=== PATIENT | male | born 1940 | race African-American/Black ===

== ENCOUNTER 2016-05-06 14:49 | Emergency (ER) | payer OTHER, MEDICARE ==
--- NOTE | 2016-05-06 16:51 | ER Document Report ---
ED Medical Screen (RME) - General Chief Complaint: Back Pain Stated Complaint: BACK PAIN Mode of Arrival: Ambulatory Information source: Patient Notes: 76 y/o M presents to ED c/o lower back pain and left knee pain. Pt reports hx of gout and states has had similar symptoms in the past but states pain has been worse than usual over the last week. Denies trauma or fall, fever, chest pain, sob, or dysuria. TRAVEL OUTSIDE OF THE [place] IN LAST 30 DAYS: No - Related Data Allergies/Adverse Reactions: ACEINHIBITORS [TRIP Inhibitors] Allergy (Severe, Verified 05/06/16 15:03) Angioedema TRIP Inhibitors [Trip Inhibitors] Allergy (Verified 05/06/16 15:03) ezetimibe [From Zetia] Adverse Reaction (Verified 05/06/16 15:03) Past Medical History - Past Medical History Cardiac Medical History: Reports: Hx Coronary Artery Disease, Hx Hypercholesterolemia, Hx Hypertension - meds Denies: Hx Atrial Fibrillation, Hx Congestive Heart Failure, Hx Heart Attack , Hx Peripheral Vascular Disease, Hx Pulmonary Embolism, Hx Heart Murmur Pulmonary Medical History: Reports: Hx Pneumonia - 1944, Hx Sleep Apnea - cpap Denies: Hx Asthma, Hx Bronchitis, Hx COPD, Hx Respiratory Failure, Hx Tuberculosis Neurological Medical History: Denies: Hx Cerebrovascular Accident, Hx Seizures Endocrine Medical History: Denies: Hx Diabetes Mellitus Type 2, Hx Hypothyroidism Renal/ Medical History: Denies: Hx Benign Prostatic Hyperplasia, Hx End Stage Renal Disease, Hx Kidney Stones, Hx Peritoneal Dialysis Malignancy Medical History: Denies Hx Lung Cancer GI Medical History: Reports: Hx Gastroesophageal Reflux Disease, Hx Hiatal Hernia. Denies: Hx Crohn's Disease, Hx Hepatitis, Hx Irritable Bowel, Hx Liver Failure, Hx Ulcer Musculoskeltal Medical History: Reports Hx Arthritis - all over, Denies Hx Fibromyalgia, Reports Hx Gout, Denies Hx Multiple Sclerosis, Denies Hx Muscular Dystrophy Psychiatric Medical History: Denies: Hx Dementia Traumatic Medical History: Denies: Hx Fractures Infectious Medical History: Denies: Hx Hepatitis Past Surgical History: Reports: Hx Cardiac Catheterization, Hx Cholecystectomy, Hx Coronary Stent - [place]. Denies: Hx Appendectomy, Hx Bowel Surgery, Hx Colostomy, Hx Coronary Artery Bypass Graft, Hx Gastric Bypass Surgery, Hx Herniorrhaphy, Hx Open Heart Surgery, Hx Pacemaker, Hx Tonsillectomy - Immunizations Immunizations up to date: Yes Hx Diphtheria, Pertussis, Tetanus Vaccination: No Physical Exam - Vital signs Vitals: Temp Pulse Resp BP 97.8 F 52 L 20 191/76 H 05/06/16 14:59 05/06/16 14:59 05/06/16 14:59 05/06/16 14:59 Interpretation: Hypertensive - states has not taken his BP medication today - General General appearance: Appears well, Alert In distress: None - Respiratory Respiratory status: No respiratory distress - Cardiovascular Rhythm: Regular Pulses: Normal: Radial Normal capillary refill: Yes Course - Vital Signs Vital signs: Temp Pulse Resp BP Pulse Ox 97.8 F 52 L 20 191/76 H 05/06/16 14:59 05/06/16 14:59 05/06/16 14:59 05/06/16 14:59
[2016-05-06 17:47] LABS: ABSOLUTE BASOPHILS # (AUTO) 0.1 10^3/uL (0.0-0.2); ABSOLUTE EOSINOPHILS # (AUTO) 0.1 10^3/uL (0.0-0.6); ABSOLUTE LYMPHOCYTES (AUTO) 2.5 10^3/uL (0.5-4.7); ABSOLUTE MONOCYTES (AUTO) 0.5 10^3/uL (0.1-1.4); ABSOLUTE NEUT (AUTO) 2.8 10^3/uL (1.7-8.2); BASOPHILS % (AUTO) 0.9 % (0-2); EOSINOPHILS % (AUTO) 1.9 % (0-6); HEMATOCRIT 36.3 % (37.9-51.0); HEMOGLOBIN 11.6 g/dL (13.5-17.0); HGB HCT DIFFERENCE -1.5; LYMPHOCYTES % (AUTO) 42.3 % (13-45); MEAN CORPUSCULAR HEMOGLOBIN 30.9 pg (27.0-33.4); MEAN CORPUSCULAR HGB CONC 32.1 g/dL (32.0-36.0); MEAN CORPUSCULAR VOLUME 96 fl (80-97); MONOCYTES % (AUTO) 8.5 % (3-13); RED BLOOD COUNT 3.77 10^6/uL (4.35-5.55); RED CELL DISTRIBUTION WIDTH 17.5 % (11.5-14.0); SEGMENTED NEUTROPHILS % (AUTO) 46.4 % (42-78)
[2016-05-06 18:10] LABS: ALANINE AMINOTRANSFERASE 40 U/L (21-72); ALBUMIN 4.1 g/dL (3.5-5.0); ALKALINE PHOSPHATASE 115 U/L (38-126); ANION GAP 15 (5-19); ASPARTATE AMINO TRANSFERASE 32 U/L (17-59); BILIRUBIN,TOTAL 0.3 mg/dL (0.2-1.3); BLOOD UREA NITROGEN 23 mg/dL (7-20); CALCIUM 9.4 mg/dL (8.4-10.2); CARBON DIOXIDE 27 mmol/L (22-30); CHLORIDE 105 mmol/L (98-107); GLUCOSE 74 mg/dL (75-110); POTASSIUM 4.2 mmol/L (3.6-5.0); SODIUM 146.6 mmol/L (137-145); URIC ACID 3.5 mg/dL (3.5-8.5)
[2016-05-06 18:35] LABS: ERYTHROCYTE SEDIMENTATION RATE 37 mm/hr (0-20)
[2016-05-06 19:02] LABS: APPEARANCE,URINE CLEAR; BILIRUBIN,URINE NEGATIVE (NEGATIVE); GLUCOSE, URINE NEGATIVE (NEGATIVE); KETONES,URINE NEGATIVE (NEGATIVE); LEUKOCYTE ESTERASE,URINE NEGATIVE (NEGATIVE); NITRITE,URINE NEGATIVE (NEGATIVE); PROTEIN,URINE 100 mg/dL (NEGATIVE); URINE SPECIFIC GRAVITY 1.016; UROBILINOGEN,URINE NEGATIVE mg/dL (<2.0)
[2016-05-06] MEDS ORDERED: HYDROCODONE/ACETAMINOPHEN 5-325 MG 6 TAB/DSPK PO PRN (21:27)
--- NOTE | 2016-05-06 21:30 | ER Document Report ---
ED General - General Chief Complaint: Back Pain Stated Complaint: BACK PAIN Time seen by provider: 21:20 Mode of Arrival: Ambulatory Notes: Patient is 76-year-old male that comes emergency department for chief complaint of pain in his back and in his left thigh and knee, worse for a week, patient admits he has had this intermittently chronically, is actually been in physical therapy for this previously, they told him to get on pain management. Eyes any fall or recent injury, denies any fever or chills, he states he has gout and he wonders if he has a flare. He is on allopurinol. He denies nausea vomiting, fever or chills, chest pain, shortness of breath. Patient can ambulate but has some pain in doing so. TRAVEL OUTSIDE OF THE [place] IN LAST 30 DAYS: No - Related Data Allergies/Adverse Reactions: ACEINHIBITORS [TRIP Inhibitors] Allergy (Severe, Verified 05/06/16 15:03) Angioedema TRIP Inhibitors [Trip Inhibitors] Allergy (Verified 05/06/16 15:03) ezetimibe [From Zetia] Adverse Reaction (Verified 05/06/16 15:03) Past Medical History - General Information source: Patient - Social History Smoking Status: Never Smoker Frequency of alcohol use: None Drug Abuse: None Lives with: Family Family History: Reviewed & Not Pertinent Patient has suicidal ideation: No Patient has homicidal ideation: No - Past Medical History Cardiac Medical History: Reports: Hx Coronary Artery Disease, Hx Hypercholesterolemia, Hx Hypertension - meds Denies: Hx Atrial Fibrillation, Hx Congestive Heart Failure, Hx Heart Attack , Hx Peripheral Vascular Disease, Hx Pulmonary Embolism, Hx Heart Murmur Pulmonary Medical History: Reports: Hx Pneumonia - 1944, Hx Sleep Apnea - cpap Denies: Hx Asthma, Hx Bronchitis, Hx COPD, Hx Respiratory Failure, Hx Tuberculosis Neurological Medical History: Denies: Hx Cerebrovascular Accident, Hx Seizures Endocrine Medical History: Denies: Hx Diabetes Mellitus Type 2, Hx Hypothyroidism Renal/ Medical History: Denies: Hx Benign Prostatic Hyperplasia, Hx End Stage Renal Disease, Hx Kidney Stones, Hx Peritoneal Dialysis Malignancy Medical History: Denies Hx Lung Cancer GI Medical History: Reports: Hx Gastroesophageal Reflux Disease, Hx Hiatal Hernia. Denies: Hx Crohn's Disease, Hx Hepatitis, Hx Irritable Bowel, Hx Liver Failure, Hx Ulcer Musculoskeltal Medical History: Reports Hx Arthritis - all over, Denies Hx Fibromyalgia, Reports Hx Gout, Denies Hx Multiple Sclerosis, Denies Hx Muscular Dystrophy Psychiatric Medical History: Denies: Hx Dementia Traumatic Medical History: Denies: Hx Fractures Infectious Medical History: Denies: Hx Hepatitis Past Surgical History: Reports: Hx Cardiac Catheterization, Hx Cholecystectomy, Hx Coronary Stent - 2011, [place]. Denies: Hx Appendectomy, Hx Bowel Surgery, Hx Colostomy, Hx Coronary Artery Bypass Graft, Hx Gastric Bypass Surgery, Hx Herniorrhaphy, Hx Open Heart Surgery, Hx Pacemaker, Hx Tonsillectomy - Immunizations Immunizations up to date: Yes Hx Diphtheria, Pertussis, Tetanus Vaccination: No Review of Systems - Review of Systems Constitutional: No symptoms reported EENT: No symptoms reported Cardiovascular: No symptoms reported Respiratory: No symptoms reported Gastrointestinal: No symptoms reported Genitourinary: No symptoms reported Male Genitourinary: No symptoms reported Musculoskeletal: See HPI Skin: No symptoms reported Hematologic/Lymphatic: No symptoms reported Neurological/Psychological: No symptoms reported Physical Exam - Vital signs Vitals: Temp Pulse Resp BP 97.8 F 52 L 20 191/76 H 05/06/16 14:59 05/06/16 14:59 05/06/16 14:59 05/06/16 14:59 Interpretation: Normal - General General appearance: Appears well, Alert In distress: None - Patient very well appearing, when he ambulates he winces slightly occasionally - HEENT Head: Normocephalic, Atraumatic Eyes: Normal Pupils: PERRL - Respiratory Respiratory status: No respiratory distress Chest status: Nontender Breath sounds: Normal. No: Decreased air movement, Wheezing Chest palpation: Normal - Cardiovascular Rhythm: Regular. No: Tachycardia Heart sounds: Normal auscultation, S1 appreciated, S2 appreciated Murmur: No - Abdominal Inspection: Normal Distension: No distension Bowel sounds: Normal Tenderness: Nontender. No: Tender Organomegaly: No organomegaly - Back Back: Normal, Nontender - Extremities General upper extremity: Normal inspection, Nontender, Normal color, Normal ROM , Normal temperature General lower extremity: Other - No swelling, erythema, abnormal heat, or other abnormality noted to either lower extremity. There is tenderness over the left side generally and anteriorly, normal range of motion of the knee, hip, ankle, normal distal neurovascular exam - Neurological Neuro grossly intact: Yes Cognition: Normal Orientation: AAOx4 Joshua Coma Scale Eye Opening: Spontaneous Conor Coma Scale Verbal: Oriented Joshua Coma Scale Motor: Obeys Commands Conor Coma Scale Total: 15 Speech: Normal Motor strength normal: LUE, RUE, LLE, RLE Sensory: Normal - Psychological Associated symptoms: Normal affect, Normal mood - Skin Skin Temperature: Warm Skin Moisture: Dry Skin Color: Normal Course - Re-evaluation Re-evalutation: Patient is able to get up and ambulate without difficulty, examination of his knees do not indicate a gout flare, no evidence of septic arthritis with full range of motion of the joints, back exam is unremarkable, laboratory workup nonspecific and unremarkable, ESR is only very mildly elevated. Provided patient with copy of his imaging, I did provide him with pain medication, discussed follow-up with orthopedics for treatment of his knees/hip/lower back, discussed return precautions. Patient and [id number] state understanding and agreement. - Vital Signs Vital signs: Temp Pulse Resp BP Pulse Ox 97.7 F 50 L 16 164/61 H 98 05/06/16 21:37 05/06/16 21:37 05/06/16 21:37 05/06/16 21:37 05/06/16 21:37 - Laboratory Result Diagrams: 05/06/16 17:30 05/06/16 17:30 Laboratory results interpreted by me: 05/06/16 05/06/16 05/06/16 17:15 17:30 17:30 RBC 3.77 L Hgb 11.6 L Hct 36.3 L RDW 17.5 H ESR 37 H Sodium 146.6 H BUN 23 H Glucose 74 L Urine Protein 100 H Urine Ascorbic Acid 20 H Discharge - Discharge Clinical Impression: Back pain Qualifiers: Back pain location: low back pain Chronicity: chronic Back pain laterality: unspecified Sciatica presence: without sciatica Qualified Code(s): M54.5 - Low back pain Leg pain Qualifiers: Laterality: left Qualified Code(s): M79.605 - Pain in left leg Condition: Stable Disposition: HOME, SELF-CARE Additional Instructions: There is degenerative disc disease in your back, some fluid in your knee joint, although the problem appears to be your thigh/hip. Examination and workup does not indicate infection or gout flare. Take the pain medication if needed as directed. Follow up with your primary this week - you may need both orthopedic and spinal specialty referrals for additional care and management. Return to the ED for any concerning symptoms - fever, vomiting, swelling, redness of the leg, or any other concerning symptoms. Prescriptions: Hydrocodone/Acetaminophen [[place] 5-325 mg Tablet] 1 - 2 tab PO ASDIR #15 tablet Referrals: MARC LANZA MD [Primary Care Provider] - Follow up as needed
[2016-05-06 21:42] VITALS: BP 164/61
== END 2016-05-06 21:43 | disposition home or self-care (01) ==
LOC: ER 14:49
DX: M54.5 Low back pain (principal); M79.605 Pain in left leg; M54.9 Dorsalgia, unspecified; M79.652 Pain in left thigh; M25.562 Pain in left knee; Z79.899 Other long term (current) drug therapy; I25.10 Atherosclerotic heart disease of native coronary artery without angina pectoris; E78.00 Pure hypercholesterolemia, unspecified; I10 Essential (primary) hypertension
CPT/HCPCS: 36415; 72110; 80053; 81001; 84550; 85025; 85652; 99283

== ENCOUNTER → 2016-06-06 | Outpatient (CLI) | payer MEDICARE, OTHER | LOC: RAD 09:53 | PROVIDERS: ATTEND Specialist | DX: R19.01 Right upper quadrant abdominal swelling, mass and lump (principal) | CPT/HCPCS: 76700 ==

== ENCOUNTER 2016-11-01 17:19 | Inpatient (IN) | payer MEDICARE, OTHER ==
[2016-11-01] MEDS ORDERED: ASPIRIN 81 MG TABLET, CHEWABLE PO ONE (18:03)
--- NOTE | 2016-11-01 18:55 | RADIOLOGY REPORT (SQ) ---
EXAM DESCRIPTION: CHEST SINGLE VIEW COMPLETED DATE/TIME: 11/01/2016 6:38 pm REASON FOR STUDY: chest pain COMPARISON: 06/28/2015 NUMBER OF VIEWS: One view. TECHNIQUE: Single frontal radiographic view of the chest acquired. LIMITATIONS: None. FINDINGS: LUNGS AND PLEURA: Low lung volumes. No opacities, masses or pneumothorax. No pleural eff usion. MEDIASTINUM AND HILAR STRUCTURES: No masses. No contour abnormality. HEART AND VASCULAR STRUCTURES: Normal size. No evidence for failure. BONES: No acute findings. HARDWARE: None in the chest. OTHER: No other significant finding. IMPRESSION: LOW LUNG VOLUMES. NO SIGNIFICANT RADIOGRAPHIC FINDING IN THE CHEST. TECHNICAL DOCUMENTATION: JOB ID: [id number] [employer]- All Rights Reserved
--- NOTE | 2016-11-01 19:05 | ER Document Report ---
ED Medical Screen (RME) - General Mode of Arrival: Ambulatory Information source: Patient TRAVEL OUTSIDE OF THE [place] IN LAST 30 DAYS: No - HPI Patient complains to provider of: Fever Onset: Other - last night Associated Symptoms: Other - see notes above - Related Data Smoking: Non-smoker Frequency of alcohol use: None Drug Abuse: None <TAMMI CHE - Last Filed: 11/01/16 19:00> <RAUDEL TAYLOR - Last Filed: 11/01/16 20:48> - General Chief Complaint: Chest Pain Stated Complaint: CHEST PAIN Time Seen by Provider: 11/01/16 17:57 Notes: 76 year old male with history of CAD, coronary stent, and UTIs presents to the ED complaining of a fever that started last night (104.6F). Patient states he took Tylenol last night and again this morning which has helped control the fever, but is additionally complaining of suprapubic abdominal pain and chest ' tingling', with the abdominal pain being worse. Patient also reports right flank pain, urinary urgency, frequency, and mild dysuria. Patient denies vomiting or diarrhea. reports that when the patient develops a fever this bad he usually has a UTI. Patient also reports that his eyes feel like they are cameras such that he is experiencing 'light blinking.' (TAMMI CHE) - Related Data Allergies/Adverse Reactions: ACEINHIBITORS [TRIP Inhibitors] Allergy (Severe, Verified 05/06/16 15:03) Angioedema TRIP Inhibitors [Trip Inhibitors] Allergy (Verified 05/06/16 15:03) ezetimibe [From Zetia] Adverse Reaction (Verified 05/06/16 15:03) Past Medical History - General Information source: Patient - Past Medical History Cardiac Medical History: Reports: Hx Coronary Artery Disease, Hx Hypercholesterolemia, Hx Hypertension - meds 1980s Pulmonary Medical History: Reports: Hx Pneumonia - 1944, Hx Sleep Apnea - cpap GI Medical History: Reports: Hx Gastroesophageal Reflux Disease, Hx Hiatal Hernia Musculoskeltal Medical History: Reports Hx Arthritis - all over, Reports Hx Gout Past Surgical History: Reports: Hx Cardiac Catheterization, Hx Cholecystectomy, Hx Coronary Stent - [place] - Immunizations Immunizations up to date: Yes Hx Diphtheria, Pertussis, Tetanus Vaccination: No <TAMMI CHE - Last Filed: 11/01/16 19:00> Review of Systems - Review of Systems Constitutional: See HPI, Fever - 104.6F EENT: No symptoms reported Cardiovascular: See HPI, Chest pain - 'tingling' Respiratory: No symptoms reported Gastrointestinal: See HPI, Abdominal pain - suprapubic. denies: Diarrhea, Vomiting Genitourinary: See HPI, Dysuria, Frequency, Flank pain - right, Urgency Male Genitourinary: No symptoms reported Musculoskeletal: No symptoms reported Skin: No symptoms reported Hematologic/Lymphatic: No symptoms reported Neurological/Psychological: No symptoms reported -: Yes All other systems reviewed and negative <TAMMI CHE - Last Filed: 11/01/16 19:00> Physical Exam - Respiratory Respiratory status: No respiratory distress Breath sounds: Normal - Cardiovascular Rhythm: Regular Heart sounds: Normal auscultation Murmur: No Friction rub: No Gallop: None auscultated - Abdominal Inspection: Normal Distension: No distension Bowel sounds: Normal Tenderness: Tender - mild diffuse tenderness to palpation <TAMMI CHE - Last Filed: 11/01/16 19:00> Course - Laboratory Result Diagrams: 11/01/16 18:25 11/01/16 18:25 <TAMMI CHE - Last Filed: 11/01/16 19:00> - Laboratory Result Diagrams: 11/01/16 18:25 11/01/16 18:25 <RAUDEL TAYLOR - Last Filed: 11/01/16 20:48> - Vital Signs Vital signs: Temp Pulse Resp BP Pulse Ox 98.8 F 73 21 H 149/64 H 97 11/01/16 17:37 11/01/16 17:37 11/01/16 20:00 11/01/16 19:01 11/01/16 20:00 - Laboratory Laboratory results interpreted by me: 11/01/16 11/01/16 11/01/16 18:25 18:25 18:25 WBC 15.2 H RBC 4.19 L Hgb 12.7 L RDW 17.1 H Seg Neutrophils % 78.8 H Lymphocytes % 10.1 L Absolute Neutrophils 12.0 H Absolute Monocytes 1.7 H BUN 27 H Creatinine 1.57 H Est GFR ( Amer) 52 L Est GFR (Non-Af Amer) 43 L Direct Bilirubin 0.5 H Urine Protein 100 H Urine Urobilinogen 2.0 H Ur Leukocyte Esterase MODERATE H Urine Ascorbic Acid 40 H Doctor's Discharge <TAMMI CHE - Last Filed: 11/01/16 19:00> <RAUDEL TAYLOR - Last Filed: 11/01/16 20:48> - Discharge Clinical Impression: Sepsis, Pyelonephritis, Acute kidney injury Condition: Fair Disposition: ADMITTED INPATIENT Referrals: MARC LANZA MD [Primary Care Provider] - Follow up as needed Scribe Documentation - Scribe Written by Scribe:: Alphonso Felix, 11/01/2016 1915 acting as scribe for :: Chuck <TAMMI CHE - Last Filed: 11/01/16 19:00>
[2016-11-01 19:07] LABS: APPEARANCE,URINE CLOUDY; BILIRUBIN,URINE NEGATIVE (NEGATIVE); GLUCOSE, URINE NEGATIVE (NEGATIVE); KETONES,URINE NEGATIVE (NEGATIVE); LEUKOCYTE ESTERASE,URINE MODERATE (NEGATIVE); NITRITE,URINE NEGATIVE (NEGATIVE); PROTEIN,URINE 100 mg/dL (NEGATIVE); URINE SPECIFIC GRAVITY 1.021
[2016-11-01 19:11] LABS: ABSOLUTE LYMPHOCYTES (AUTO) 1.5 10^3/uL (0.5-4.7); ABSOLUTE MONOCYTES (AUTO) 1.7 10^3/uL (0.1-1.4); BASOPHILS % (AUTO) 0.2 % (0-2); HEMATOCRIT 39.5 % (37.9-51.0); HEMOGLOBIN 12.7 g/dL (13.5-17.0); HGB HCT DIFFERENCE -1.4; LYMPHOCYTES % (AUTO) 10.1 % (13-45); MEAN CORPUSCULAR HEMOGLOBIN 30.5 pg (27.0-33.4); MEAN CORPUSCULAR HGB CONC 32.2 g/dL (32.0-36.0); MEAN CORPUSCULAR VOLUME 95 fl (80-97); MONOCYTES % (AUTO) 10.9 % (3-13); RED BLOOD COUNT 4.19 10^6/uL (4.35-5.55); RED CELL DISTRIBUTION WIDTH 17.1 % (11.5-14.0); SEGMENTED NEUTROPHILS % (AUTO) 78.8 % (42-78); WHITE BLOOD COUNT 15.2 10^3/uL (4.0-10.5)
[2016-11-01 19:16] LABS: ALANINE AMINOTRANSFERASE 36 U/L (21-72); ALBUMIN 4.4 g/dL (3.5-5.0); ALKALINE PHOSPHATASE 115 U/L (38-126); ANION GAP 14 (5-19); ASPARTATE AMINO TRANSFERASE 41 U/L (17-59); BILIRUBIN,DIRECT 0.5 mg/dL (0.0-0.4); BILIRUBIN,TOTAL 1.2 mg/dL (0.2-1.3); BLOOD UREA NITROGEN 27 mg/dL (7-20); CALCIUM 9.3 mg/dL (8.4-10.2); CARBON DIOXIDE 25 mmol/L (22-30); CHLORIDE 101 mmol/L (98-107); CREATINE KINASE 128 U/L (55-170); CREATININE RESULT 1.57 mg/dL (0.52-1.25); GLUCOSE 108 mg/dL (75-110); POTASSIUM 4.2 mmol/L (3.6-5.0); SODIUM 139.9 mmol/L (137-145); TOTAL PROTEIN 8.1 g/dL (6.3-8.2)
[2016-11-01] MEDS ORDERED: LEVOFLOXACIN 750 MG/D5W RTU 150 ML IV ONE (19:27)
[2016-11-01 19:28] LABS: CREATINE KINASE MB 0.64 ng/mL (<4.55); TROPONIN I 0.024 ng/mL
[2016-11-01] MEDS ORDERED: NORMAL SALINE 1000 ML 1,000 ML IV ONE (19:28)
--- NOTE | 2016-11-01 19:32 | ER Document Report ---
ED General - General Chief Complaint: Fever Stated Complaint: fever Time Seen by Provider: 11/01/16 17:57 Mode of Arrival: Ambulatory Notes: Patient is a 76-year-old male who presents with weakness, difficulty with ambulation, and fever up to 102.4F today. Patient has had similar symptoms in the past that he has become septic. Nothing improves or worsens his symptoms. He has been taking Tylenol at home to treat his fever. He has not seen his primary care doctor regarding today's concerns. He does admit to dysuria and bilateral low back pain. The pain is described as a dull, aching, throbbing pain. He denies any headache, neck pain, cough or shortness of breath. TRAVEL OUTSIDE OF THE [place] IN LAST 30 DAYS: No - Related Data Allergies/Adverse Reactions: ACEINHIBITORS [TRIP Inhibitors] Allergy (Severe, Verified 05/06/16 15:03) Angioedema TRIP Inhibitors [Trip Inhibitors] Allergy (Verified 05/06/16 15:03) ezetimibe [From Zetia] Adverse Reaction (Verified 05/06/16 15:03) Home Medications: Current Home Medications Allopurinol [Zyloprim 300 mg Tablet] 300 mg PO QPM 11/01/16 [History] Aspirin [Aspirin 81 mg Chewable Tablet] 81 mg PO DAILY 11/01/16 [History] Atorvastatin Calcium [Lipitor 40 mg Tablet] 40 mg PO QHS 11/01/16 [History] Clopidogrel Bisulfate [Plavix 75 mg Tablet] 75 mg PO QHS 11/01/16 [History] Ferrous Sulfate [Feosol 325 mg Tablet] 325 mg PO BID 11/01/16 [History] Gabapentin [Neurontin] 600 mg PO BID 11/01/16 [History] Magnesium Oxide [Mag-Ox 400 mg Tablet] 400 mg PO BID 11/01/16 [History] Metoprolol Tartrate [Lopressor 100 mg Tablet] 100 mg PO BID 11/01/16 [History] Nitroglycerin [Nitrostat] 0.4 mg SL Q5M 11/01/16 [History] Pantoprazole Sodium [Protonix] 40 mg PO QAM 11/01/16 [History] Past Medical History - General Information source: Patient - Social History Smoking Status: Never Smoker Frequency of alcohol use: None Drug Abuse: None Lives with: Spouse/Significant other Family History: Reviewed & Not Pertinent Patient has suicidal ideation: No Patient has homicidal ideation: No - Past Medical History Cardiac Medical History: Reports: Hx Coronary Artery Disease, Hx Hypercholesterolemia, Hx Hypertension - meds Denies: Hx Atrial Fibrillation, Hx Congestive Heart Failure, Hx Heart Attack Pulmonary Medical History: Reports: Hx Pneumonia - 1944, Hx Sleep Apnea - cpap Denies: Hx Asthma, Hx Bronchitis, Hx COPD, Hx Tuberculosis Neurological Medical History: Denies: Hx Seizures Endocrine Medical History: Denies: Hx Diabetes Mellitus Type 2 Renal/ Medical History: Denies: Hx End Stage Renal Disease, Hx Kidney Stones, Hx Peritoneal Dialysis GI Medical History: Reports: Hx Gastroesophageal Reflux Disease, Hx Hiatal Hernia. Denies: Hx Ulcer Musculoskeltal Medical History: Reports Hx Arthritis - all over, Reports Hx Gout Past Surgical History: Reports: Hx Cardiac Catheterization, Hx Cholecystectomy, Hx Coronary Stent - 2011, [place]. Denies: Hx Appendectomy, Hx Bowel Surgery, Hx Open Heart Surgery, Hx Tonsillectomy - Immunizations Immunizations up to date: Yes Hx Diphtheria, Pertussis, Tetanus Vaccination: No Review of Systems - Review of Systems Notes: Constitutional: Positive for fever. HENT: Negative for sore throat. Eyes: Negative for visual changes. Cardiovascular: Negative for chest pain. Respiratory: Negative for shortness of breath. Gastrointestinal: Negative for abdominal pain, vomiting or diarrhea. Genitourinary: Positive for dysuria. Musculoskeletal: Negative for back pain. Skin: Negative for rash. Neurological: Negative for headaches, weakness or numbness. 10 point ROS negative except as marked above and in HPI. Physical Exam - Vital signs Vitals: Temp Pulse Resp BP Pulse Ox 98.8 F 73 15 146/52 H 100 11/01/16 17:37 11/01/16 17:37 11/01/16 17:37 11/01/16 17:37 11/01/16 17:37 Interpretation: Hypertensive Notes: PHYSICAL EXAMINATION: GENERAL: Appears somewhat ill but in no acute distress. HEAD: Atraumatic, normocephalic. EYES: Pupils equal round and reactive to light, extraocular movements intact, sclera anicteric, conjunctiva are normal. ENT: nares patent, oropharynx clear without exudates. Dry mucous membranes. NECK: Normal range of motion, supple without lymphadenopathy LUNGS: Breath sounds clear to auscultation bilaterally and equal. No wheezes rales or rhonchi. HEART: Regular rate and rhythm without murmurs ABDOMEN: Soft, nontender, normoactive bowel sounds. No guarding, no rebound. No masses appreciated. Bilateral CVA tenderness worse on the left EXTREMITIES: Normal range of motion, no pitting or edema. No cyanosis. NEUROLOGICAL: No focal neurological deficits. Moves all extremities spontaneously and on command. PSYCH: Normal mood, normal affect. SKIN: Warm, Dry, normal turgor, no rashes or lesions noted. Course - Re-evaluation Re-evalutation: 11/01/16 19:29 Patient presents with sepsis secondary to pyelonephritis. Patient has bilateral CVA tenderness on examination, with febrile at home to 101.4 earlier today, and has a leukocytosis with a neutrophilic predominance. His laboratories do demonstrate an acute kidney injury with creatinine at 1.57 consistent with a prerenal azotemia. Patient does not have a baseline chronic kidney disease. Patient overall is somewhat ill in appearance, lethargic, but answers questions appropriately. His at the bedside relates that the patient has been unable to get up out of bed on his own, does not unable to walk to the car today on his own to come to the hospital. He is normally independent in all activities of daily living. Given his functional decline, acute kidney injury and that he meet sepsis criteria, I will request an admission from his primary care doctor Dr. Hoffman. Patient has been started on IV fluids and IV levofloxacin. 11/01/16 20:39 Have discussed this case with Dr. Hoffman who is agreed to admit the patient. The care plan has been discussed with the patient and his family at the bedside who are agreeable to admission at this time. - Vital Signs Vital signs: Temp Pulse Resp BP Pulse Ox 99.6 F 98 20 155/57 H 100 11/01/16 23:09 11/02/16 01:59 11/01/16 23:09 11/01/16 23:09 11/01/16 23:09 - Laboratory Result Diagrams: 11/01/16 18:25 11/01/16 18:25 Laboratory results interpreted by me: 11/01/16 11/01/16 11/01/16 18:25 18:25 18:25 WBC 15.2 H RBC 4.19 L Hgb 12.7 L RDW 17.1 H Seg Neutrophils % 78.8 H Lymphocytes % 10.1 L Absolute Neutrophils 12.0 H Absolute Monocytes 1.7 H BUN 27 H Creatinine 1.57 H Est GFR ( Amer) 52 L Est GFR (Non-Af Amer) 43 L Direct Bilirubin 0.5 H Urine Protein 100 H Urine Urobilinogen 2.0 H Ur Leukocyte Esterase MODERATE H Urine Ascorbic Acid 40 H - Diagnostic Test Radiology reviewed: Image reviewed, Reports reviewed Radiology results interpreted by me: 11/01/16 20:39 Chest x-ray: No acute infiltrate or pneumothorax Discharge - Discharge Clinical Impression: Pyelonephritis, Acute kidney injury Sepsis Qualifiers: Sepsis type: sepsis due to unspecified organism Qualified Code(s): A41.9 - Sepsis, unspecified organism Condition: Fair Disposition: ADMITTED INPATIENT Admitting Provider: Hoffman Unit Admitted: Telemetry
--- NOTE | 2016-11-01 20:42 | EKG REPORT ---
SEVERITY:- NORMAL ECG - SINUS RHYTHM : Confirmed by: Opal Wren 01-Nov-2016 20:41:57
[2016-11-02] MEDS ORDERED: NITROGLYCERIN 0.4 MG/TAB 25 TAB/BOTTLE SL PRN (05:15)
[2016-11-02] MEDS: LANSOPRAZOLE 30 MG TAB.RAP.DR PO SCH (06:17)
[2016-11-02] MEDS: ACETAMINOPHEN 325 MG TABLET PO PRN ×2 (06:17→21:30)
[2016-11-02] MEDS: POTASSI CL 20 MEQ/1/2NS 1L 1,000 ML IV PRN ×2 (06:17→21:32)
--- NOTE | 2016-11-02 07:27 | PDOC H&P ---
History of Present Illness Admission Date/PCP: 11/01/16 23:25 MARC LANZA MD Patient complains of: fever History of Present Illness: ZAIRA GOOD is a 76 year old male with 2d days of fever, frequency, urgency, flank pain. Since 2013 he had 3 admissions for uti. In 2011 hematuria emery he had multiple renal cysts. 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 Had veeg by [facility] Endocrine Medical History: Denies: Diabetes Mellitus Type 2 Renal/ Medical History: Denies: Chronic Kidney Disease, End Stage Renal Disease Malignancy Medical History: Reports: None GI Medical History: Reports: Gastroesophageal Reflux Disease, Hiatal Hernia Musculoskeltal Medical History: Reports: Arthritis - all over, Gout Skin Medical History: Reports: None Psychiatric Medical History: Denies: Depression Traumatic Medical History: Reports: None Hematology: Denies: Anemia, Sickle Cell Disease Infectious Medical History: Reports: None Past Surgical History Past Surgical History: Reports: Cardiac Catheterization, Cholecystectomy, Coronary Stent - 2011, [facility] Denies: Appendectomy, Tonsillectomy Social History Information Source: Office Lives with: Spouse/Significant other Smoking Status: Never Smoker Last Time Smoked: quit around 1975 Frequency of Alcohol Use: None Hx Recreational Drug Use: No Drugs: None Hx Prescription Drug Abuse: No - Advance Directive Resuscitation Status: Full Code Family History Family History: CVA, Hypertension Parental Family History Reviewed: Yes Children Family History Reviewed: Yes Sibling(s) Family History Reviewed.: Yes Medication/Allergy Home Medications: Allopurinol [Zyloprim 300 mg Tablet] 300 mg PO QPM 11/01/16 Aspirin [Aspirin 81 mg Chewable Tablet] 81 mg PO DAILY 11/01/16 Atorvastatin Calcium [Lipitor 40 mg Tablet] 40 mg PO QHS 11/01/16 Clopidogrel Bisulfate [Plavix 75 mg Tablet] 75 mg PO QHS 11/01/16 Ferrous Sulfate [Feosol 325 mg Tablet] 325 mg PO BID 11/01/16 Gabapentin [Neurontin] 600 mg PO BID 11/01/16 Magnesium Oxide [Mag-Ox 400 mg Tablet] 400 mg PO BID 11/01/16 Metoprolol Tartrate [Lopressor 100 mg Tablet] 100 mg PO BID 11/01/16 Nitroglycerin [Nitrostat] 0.4 mg SL Q5M 11/01/16 Pantoprazole Sodium [Protonix] 40 mg PO QAM 11/01/16 Allergies/Adverse Reactions: ACEINHIBITORS [TRIP Inhibitors] Allergy (Severe, Verified 05/06/16 15:03) Angioedema TRIP Inhibitors [Trip Inhibitors] Allergy (Verified 05/06/16 15:03) ezetimibe [From Zetia] Adverse Reaction (Verified 05/06/16 15:03) Review of Systems Constitutional: PRESENT: fever(s), weakness Cardiovascular: PRESENT: dyspnea on exertion. ABSENT: chest pain, orthropnea Respiratory: ABSENT: cough Gastrointestinal: PRESENT: heartburn. ABSENT: abdominal pain, constipation, diarrhea, hematochezia, vomiting Genitourinary: PRESENT: as per HPI Musculoskeletal: PRESENT: back pain Neurological: PRESENT: weakness - needed help to get out of car Physical Exam Vital Signs: Temp Pulse Resp BP Pulse Ox 101.9 F H 99 20 133/49 H 100 11/02/16 04:00 11/02/16 04:00 11/02/16 04:00 11/02/16 04:00 11/02/16 04:00 Intake & Output 10/31/16 11/01/16 11/02/16 07:59 07:59 07:59 Weight 234 lb 9.149 oz General appearance: PRESENT: no acute distress Mouth exam: PRESENT: moist Throat exam: ABSENT: post pharyngeal erythema Neck exam: ABSENT: lymphadenopathy, tenderness, thyromegaly, tracheal deviation Respiratory exam: PRESENT: clear to auscultation beverley Cardiovascular exam: ABSENT: diastolic murmur, irregular rhythm, systolic murmur GI/Abdominal exam: PRESENT: tenderness - suprapubic. Flanks nontender.. ABSENT : mass, organolmegaly Extremities exam: ABSENT: pedal edema Neurological exam: PRESENT: oriented to situation Psychiatric exam: PRESENT: appropriate affect Results Laboratory Results: Abnormal - 24 hr 11/01/16 11/01/16 11/01/16 18:25 18:25 18:25 WBC 15.2 H RBC 4.19 L Hgb 12.7 L RDW 17.1 H Seg Neutrophils % 78.8 H Lymphocytes % 10.1 L Absolute Neutrophils 12.0 H Absolute Monocytes 1.7 H BUN 27 H Creatinine 1.57 H Est GFR ( Amer) 52 L Est GFR (Non-Af Amer) 43 L Direct Bilirubin 0.5 H Urine Protein 100 H Urine Urobilinogen 2.0 H Ur Leukocyte Esterase MODERATE H Urine Ascorbic Acid 40 H Impressions: Chest X-Ray 11/01/16 18:04 IMPRESSION: LOW LUNG VOLUMES. NO SIGNIFICANT RADIOGRAPHIC FINDING IN THE CHEST. Assessment & Plan - Diagnosis (1) Pyelonephritis Is this a current diagnosis for this admission?: YesPlan: levaquin ivf (2) Acute kidney injury Is this a current diagnosis for this admission?: YesPlan: ivf (3) Sepsis Qualifiers: Sepsis type: sepsis due to unspecified organism Qualified Code(s): A41.9 - Sepsis, unspecified organism Is this a current diagnosis for this admission?: YesPlan: tachypnea fever leukocytosis weakness. Suspect gram negative from uti. Levaquin & ivf - Inpatient Certification Based on my medical assessment, after consideration of the patient's comorbidities, presenting symptoms, or acuity I expect that the services needed warrant INPATIENT care.: Yes I certify that my determination is in accordance with my understanding of Medicare's requirements for reasonable and necessary INPATIENT services [42 CFR 412.3e].: Yes Medical Necessity: Need Close Monitoring Due to Risk of Patient Decompensation, Need For IV Fluids, Need for IV Antibiotics, Risk of Complication if Not Cared For in Hospital, Risk of Diagnosis Which Will Require Inpatient Eval/Care/ Monitoring
[2016-11-02] MEDS: ASPIRIN 81 MG TABLET, CHEWABLE PO SCH (10:01)
[2016-11-02] MEDS: GABAPENTIN 300 MG CAPSULE PO SCH ×2 (10:02→21:30)
[2016-11-02] MEDS: MAGNESIUM OXIDE 400 MG TABLET PO SCH ×2 (10:02→17:34)
[2016-11-02] MEDS: FERROUS SULFATE 325 MG TABLET PO SCH ×2 (10:02→17:34)
[2016-11-02] MEDS: ENOXAPARIN SODIUM INJ 40 MG/0.4 ML DISP.SYRIN SUBCUT SCH (10:02)
[2016-11-02] MEDS ORDERED: NORMAL SALINE 1000 ML 1,000 ML IV ONE (10:30)
[2016-11-02] MEDS: METOPROLOL TARTRATE 100 MG TABLET PO SCH ×2 (10:46→17:34)
[2016-11-02] MEDS: ALLOPURINOL 300 MG TABLET PO SCH (17:33)
[2016-11-02] MEDS: LEVOFLOXACIN 500 MG/D5W RTU 500 MG/100 ML RTUPB IV SCH (17:34)
[2016-11-02] MEDS: ATORVASTATIN CALCIUM 40 MG TABLET PO SCH (21:30)
[2016-11-02] MEDS: CLOPIDOGREL BISULFATE 75 MG TABLET PO SCH (21:30)
[2016-11-03] MEDS: LANSOPRAZOLE 30 MG TAB.RAP.DR PO SCH (06:13)
[2016-11-03] MEDS: POTASSI CL 20 MEQ/1/2NS 1L 1,000 ML IV PRN (06:13)
--- NOTE | 2016-11-03 07:41 | PDOC PROGRESS REPORT ---
Subjective Progress Note for:: 11/03/16 Subjective:: clammy yesterday after metoprolol until bolus 2L Physical Exam Vital Signs: Temp Pulse Resp BP Pulse Ox 99 F 64 17 135/62 H 99 11/03/16 03:57 11/03/16 03:57 11/03/16 03:57 11/03/16 03:57 11/03/16 03:57 Intake & Output 11/01/16 11/02/16 11/03/16 07:59 07:59 07:59 Intake Total 3843 Output Total 200 1680 Balance -200 2163 Weight 240 lb 8.389 oz General appearance: PRESENT: no acute distress Respiratory exam: PRESENT: clear to auscultation beverley Cardiovascular exam: ABSENT: diastolic murmur, irregular rhythm, systolic murmur GI/Abdominal exam: ABSENT: mass, organolmegaly, tenderness Extremities exam: ABSENT: pedal edema Neurological exam: PRESENT: oriented to situation Psychiatric exam: PRESENT: appropriate affect Results Impressions: Chest X-Ray 11/01/16 18:04 IMPRESSION: LOW LUNG VOLUMES. NO SIGNIFICANT RADIOGRAPHIC FINDING IN THE CHEST. Assessment & Plan - Diagnosis (1) Pyelonephritis Is this a current diagnosis for this admission?: YesPlan: 100k gram negative. Continue levaquin. Was septic with hypotension, fever, weakness, leukocytosis. (2) Acute kidney injury Is this a current diagnosis for this admission?: Yes (3) Sepsis Qualifiers: Sepsis type: sepsis due to unspecified organism Qualified Code(s): A41.9 - Sepsis, unspecified organism Is this a current diagnosis for this admission?: YesPlan: continue levaquin. Follow sensitivities. (4) Essential (primary) hypertension Is this a current diagnosis for this admission?: YesPlan: decrease metoprolol
[2016-11-03] MEDS: FERROUS SULFATE 325 MG TABLET PO SCH ×2 (11:19→17:22)
[2016-11-03] MEDS: MAGNESIUM OXIDE 400 MG TABLET PO SCH ×2 (11:19→17:22)
[2016-11-03] MEDS: ASPIRIN 81 MG TABLET, CHEWABLE PO SCH (11:19)
[2016-11-03] MEDS: METOPROLOL TARTRATE 50 MG TABLET PO SCH ×2 (11:20→21:24)
[2016-11-03] MEDS: ENOXAPARIN SODIUM INJ 40 MG/0.4 ML DISP.SYRIN SUBCUT SCH (11:20)
[2016-11-03] MEDS: GABAPENTIN 300 MG CAPSULE PO SCH ×2 (11:20→21:24)
[2016-11-03] MEDS: ACETAMINOPHEN 325 MG TABLET PO PRN ×2 (15:57→21:24)
[2016-11-03] MEDS ORDERED: TRAMADOL HCL 50 MG TABLET PO PRN (17:15)
[2016-11-03] MEDS: ALLOPURINOL 300 MG TABLET PO SCH (17:18)
[2016-11-03] MEDS: LEVOFLOXACIN 500 MG/D5W RTU 500 MG/100 ML RTUPB IV SCH (17:22)
[2016-11-03] MEDS: 1/2 NORMAL SALINE 1,000 ML IV PRN (20:08)
[2016-11-03] MEDS: CLOPIDOGREL BISULFATE 75 MG TABLET PO SCH (21:24)
[2016-11-03] MEDS: ATORVASTATIN CALCIUM 40 MG TABLET PO SCH (21:24)
[2016-11-04 05:22] LABS: ANION GAP 11 (5-19); BLOOD UREA NITROGEN 20 mg/dL (7-20); CALCIUM 8.4 mg/dL (8.4-10.2); CARBON DIOXIDE 20 mmol/L (22-30); CHLORIDE 108 mmol/L (98-107); CREATININE RESULT 1.18 mg/dL (0.52-1.25); GLUCOSE 87 mg/dL (75-110); POTASSIUM 4.2 mmol/L (3.6-5.0); SODIUM 138.5 mmol/L (137-145)
[2016-11-04] MEDS: 1/2 NORMAL SALINE 1,000 ML IV PRN ×2 (05:48→16:51)
[2016-11-04] MEDS: LANSOPRAZOLE 30 MG TAB.RAP.DR PO SCH (05:48)
[2016-11-04] MEDS: METOPROLOL TARTRATE 50 MG TABLET PO SCH ×2 (10:20→21:46)
[2016-11-04] MEDS: ASPIRIN 81 MG TABLET, CHEWABLE PO SCH (10:21)
[2016-11-04] MEDS: MAGNESIUM OXIDE 400 MG TABLET PO SCH ×2 (10:21→18:18)
[2016-11-04] MEDS: ENOXAPARIN SODIUM INJ 40 MG/0.4 ML DISP.SYRIN SUBCUT SCH (10:21)
[2016-11-04] MEDS: FERROUS SULFATE 325 MG TABLET PO SCH ×2 (10:21→18:18)
[2016-11-04] MEDS: GABAPENTIN 300 MG CAPSULE PO SCH ×2 (10:21→21:44)
[2016-11-04] MEDS: ALLOPURINOL 300 MG TABLET PO SCH (18:18)
[2016-11-04] MEDS: ERTAPENEM SODIUM 1 GM in NORMAL SALINE 50 ML IV SCH (18:18)
[2016-11-04] MEDS: CLOPIDOGREL BISULFATE 75 MG TABLET PO SCH (21:46)
[2016-11-04] MEDS: ATORVASTATIN CALCIUM 40 MG TABLET PO SCH (21:46)
[2016-11-05] MEDS: ACETAMINOPHEN 325 MG TABLET PO PRN (00:48)
[2016-11-05] MEDS: LANSOPRAZOLE 30 MG TAB.RAP.DR PO SCH (05:52)
--- NOTE | 2016-11-05 07:17 | PDOC PROGRESS REPORT ---
Subjective Progress Note for:: 11/04/16 Subjective:: still fever Physical Exam Vital Signs: Temp Pulse Resp BP Pulse Ox 100 F 65 17 168/48 H 100 11/05/16 04:00 11/05/16 04:00 11/05/16 04:00 11/05/16 04:00 11/05/16 04:00 Intake & Output 11/03/16 11/04/16 11/05/16 07:59 07:59 07:59 Intake Total 3843 2980 2365 Output Total 1680 1600 1750 Balance 2163 1380 615 Weight 240 lb 8.389 oz 240 lb 4.862 oz 266 lb 1.567 oz General appearance: PRESENT: no acute distress Respiratory exam: PRESENT: clear to auscultation beverley Cardiovascular exam: ABSENT: diastolic murmur, irregular rhythm, systolic murmur GI/Abdominal exam: ABSENT: mass, organolmegaly, tenderness Extremities exam: ABSENT: pedal edema Neurological exam: PRESENT: oriented to situation Psychiatric exam: PRESENT: appropriate affect Results Laboratory Results: 11/04/16 04:18 Impressions: Chest X-Ray 11/01/16 18:04 IMPRESSION: LOW LUNG VOLUMES. NO SIGNIFICANT RADIOGRAPHIC FINDING IN THE CHEST. Assessment & Plan - Diagnosis (1) Pyelonephritis Is this a current diagnosis for this admission?: YesPlan: 100k enterobacter resistant to levaquin but sensitive to ertapenem. Switch to ertapenem. (2) Acute kidney injury Is this a current diagnosis for this admission?: Yes (3) Sepsis Qualifiers: Sepsis type: sepsis due to unspecified organism Qualified Code(s): A41.9 - Sepsis, unspecified organism Is this a current diagnosis for this admission?: Yes (4) Essential (primary) hypertension Is this a current diagnosis for this admission?: Yes
--- NOTE | 2016-11-05 08:01 | PDOC PROGRESS REPORT ---
Subjective Progress Note for:: 11/05/16 Subjective:: somewhat better since admisson. Physical Exam Vital Signs: Temp Pulse Resp BP Pulse Ox 100 F 57 L 17 168/48 H 100 11/05/16 04:00 11/05/16 07:00 11/05/16 04:00 11/05/16 04:00 11/05/16 04:00 Intake & Output 11/03/16 11/04/16 11/05/16 07:59 07:59 07:59 Intake Total 3843 2980 2365 Output Total 1680 1600 1750 Balance 2163 1380 615 Weight 240 lb 8.389 oz 240 lb 4.862 oz 266 lb 1.567 oz General appearance: PRESENT: no acute distress Respiratory exam: PRESENT: clear to auscultation beverley Cardiovascular exam: ABSENT: diastolic murmur, irregular rhythm, systolic murmur GI/Abdominal exam: ABSENT: mass, organolmegaly, tenderness Extremities exam: ABSENT: pedal edema Neurological exam: PRESENT: oriented to situation Psychiatric exam: PRESENT: appropriate affect Results Laboratory Results: 11/04/16 04:18 Impressions: Chest X-Ray 11/01/16 18:04 IMPRESSION: LOW LUNG VOLUMES. NO SIGNIFICANT RADIOGRAPHIC FINDING IN THE CHEST. Assessment & Plan - Diagnosis (1) Pyelonephritis Is this a current diagnosis for this admission?: Yes (2) Acute kidney injury Is this a current diagnosis for this admission?: Yes (3) Sepsis Qualifiers: Sepsis type: sepsis due to unspecified organism Qualified Code(s): A41.9 - Sepsis, unspecified organism Is this a current diagnosis for this admission?: Yes (4) Essential (primary) hypertension Is this a current diagnosis for this admission?: YesPlan: Up. Rate into 30s on metoprolol 50bid. Chronic constipation. Allergic rodolfo. Try hydralazine. Stop ivf. - Inpatient Certification Medical Necessity: Need for IV Antibiotics
[2016-11-05] MEDS: MAGNESIUM OXIDE 400 MG TABLET PO SCH ×2 (09:42→17:43)
[2016-11-05] MEDS: FERROUS SULFATE 325 MG TABLET PO SCH ×2 (09:42→17:43)
[2016-11-05] MEDS: GABAPENTIN 300 MG CAPSULE PO SCH ×2 (09:42→21:20)
[2016-11-05] MEDS: HYDRALAZINE HCL 50 MG TABLET PO SCH ×2 (09:42→21:20)
[2016-11-05] MEDS: ASPIRIN 81 MG TABLET, CHEWABLE PO SCH (09:42)
[2016-11-05] MEDS: ENOXAPARIN SODIUM INJ 40 MG/0.4 ML DISP.SYRIN SUBCUT SCH (09:43)
[2016-11-05] MEDS: ALLOPURINOL 300 MG TABLET PO SCH (17:43)
[2016-11-05] MEDS: ERTAPENEM SODIUM 1 GM in NORMAL SALINE 50 ML IV SCH (17:46)
[2016-11-05] MEDS: ATORVASTATIN CALCIUM 40 MG TABLET PO SCH (21:20)
[2016-11-05] MEDS: CLOPIDOGREL BISULFATE 75 MG TABLET PO SCH (21:20)
[2016-11-06] MEDS: LANSOPRAZOLE 30 MG TAB.RAP.DR PO SCH (06:18)
[2016-11-06] MEDS: HYDRALAZINE HCL 50 MG TABLET PO SCH ×3 (06:18→21:14)
--- NOTE | 2016-11-06 07:55 | PDOC PROGRESS REPORT ---
Subjective Progress Note for:: 11/06/16 Subjective:: better. Wants home for [employer] Physical Exam Vital Signs: Temp Pulse Resp BP Pulse Ox 98.5 F 77 18 151/63 H 94 11/06/16 03:14 11/06/16 07:00 11/06/16 03:14 11/06/16 03:14 11/06/16 03:14 Intake & Output 11/04/16 11/05/16 11/06/16 07:59 07:59 07:59 Intake Total 2980 2365 2518 Output Total 1600 1750 400 Balance 5596 146 2212 Weight 240 lb 4.862 oz 266 lb 1.567 oz 261 lb 0.437 oz General appearance: PRESENT: no acute distress Respiratory exam: PRESENT: clear to auscultation beverley Cardiovascular exam: ABSENT: diastolic murmur, irregular rhythm, systolic murmur GI/Abdominal exam: ABSENT: mass, organolmegaly, tenderness Extremities exam: ABSENT: pedal edema Neurological exam: PRESENT: oriented to situation Psychiatric exam: PRESENT: appropriate affect Results Laboratory Results: 11/04/16 04:18 Impressions: Chest X-Ray 11/01/16 18:04 IMPRESSION: LOW LUNG VOLUMES. NO SIGNIFICANT RADIOGRAPHIC FINDING IN THE CHEST. Assessment & Plan - Diagnosis (1) Pyelonephritis Is this a current diagnosis for this admission?: YesPlan: day 3 ertapenem. Needs 4 more days. No po possible (2) Acute kidney injury Is this a current diagnosis for this admission?: YesPlan: creatinine improved (3) Sepsis Qualifiers: Sepsis type: sepsis due to unspecified organism Qualified Code(s): A41.9 - Sepsis, unspecified organism Is this a current diagnosis for this admission?: Yes (4) Essential (primary) hypertension Is this a current diagnosis for this admission?: YesPlan: increase hydralazine to 50mg tid. Added hctz - Inpatient Certification Medical Necessity: Need for IV Antibiotics
[2016-11-06] MEDS: HYDROCHLOROTHIAZIDE 25 MG TABLET PO SCH (10:08)
[2016-11-06] MEDS: MAGNESIUM OXIDE 400 MG TABLET PO SCH ×2 (10:08→17:12)
[2016-11-06] MEDS: ASPIRIN 81 MG TABLET, CHEWABLE PO SCH (10:08)
[2016-11-06] MEDS: FERROUS SULFATE 325 MG TABLET PO SCH ×2 (10:08→17:12)
[2016-11-06] MEDS: GABAPENTIN 300 MG CAPSULE PO SCH ×2 (10:08→21:13)
[2016-11-06] MEDS: ENOXAPARIN SODIUM INJ 40 MG/0.4 ML DISP.SYRIN SUBCUT SCH (10:08)
[2016-11-06] MEDS: ERTAPENEM SODIUM 1 GM in NORMAL SALINE 50 ML IV SCH (17:12)
[2016-11-06] MEDS: ALLOPURINOL 300 MG TABLET PO SCH (17:12)
[2016-11-06] MEDS: ATORVASTATIN CALCIUM 40 MG TABLET PO SCH (21:13)
[2016-11-06] MEDS: CLOPIDOGREL BISULFATE 75 MG TABLET PO SCH (21:14)
[2016-11-07] MEDS: LANSOPRAZOLE 30 MG TAB.RAP.DR PO SCH (05:02)
[2016-11-07] MEDS: HYDRALAZINE HCL 50 MG TABLET PO SCH ×3 (05:02→17:47)
--- NOTE | 2016-11-07 08:38 | PDOC PROGRESS REPORT ---
Subjective Progress Note for:: 11/07/16 Subjective:: L knee pain worse. Neck & upper back pain radiating to all fingers. Physical Exam Vital Signs: Temp Pulse Resp BP Pulse Ox 98.9 F 90 17 173/58 H 94 11/07/16 04:00 11/07/16 07:00 11/07/16 04:00 11/07/16 04:00 11/07/16 04:00 Intake & Output 11/06/16 11/07/16 11/08/16 07:59 07:59 07:59 Intake Total 2518 860 Output Total 400 1700 Balance 2118 -840 Weight 261 lb 0.437 oz 261 lb 3.964 oz General appearance: PRESENT: mild distress Neck exam: PRESENT: tenderness - R rotation 60deg Rlean 30deg. Respiratory exam: PRESENT: clear to auscultation beverley Cardiovascular exam: ABSENT: diastolic murmur, irregular rhythm, systolic murmur GI/Abdominal exam: ABSENT: mass, organolmegaly, tenderness Musculoskeletal exam: PRESENT: tenderness - anterior R knee palpation Neurological exam: PRESENT: oriented to situation Psychiatric exam: PRESENT: appropriate affect Results Laboratory Results: 11/04/16 04:18 Impressions: Chest X-Ray 11/01/16 18:04 IMPRESSION: LOW LUNG VOLUMES. NO SIGNIFICANT RADIOGRAPHIC FINDING IN THE CHEST. Assessment & Plan - Diagnosis (1) Pyelonephritis Is this a current diagnosis for this admission?: Yes (2) Acute kidney injury Is this a current diagnosis for this admission?: Yes (3) Sepsis Qualifiers: Sepsis type: sepsis due to unspecified organism Qualified Code(s): A41.9 - Sepsis, unspecified organism Is this a current diagnosis for this admission?: Yes (4) Essential (primary) hypertension Is this a current diagnosis for this admission?: Yes (5) Paresthesia and pain of both upper extremities Is this a current diagnosis for this admission?: YesPlan: tsh, b12, A1c. Already on as much [facility] that [facility] can stand. Duloxetine gave him nightmares. 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 Uric acid level. - Inpatient Certification Medical Necessity: Need for IV Antibiotics
[2016-11-07] MEDS ORDERED: COLCHICINE 0.6 MG TABLET PO ONE ×2 (09:00→10:00)
[2016-11-07] MEDS: ASPIRIN 81 MG TABLET, CHEWABLE PO SCH (09:46)
[2016-11-07] MEDS: MAGNESIUM OXIDE 400 MG TABLET PO SCH ×2 (09:46→17:47)
[2016-11-07] MEDS: FERROUS SULFATE 325 MG TABLET PO SCH ×2 (09:47→17:46)
[2016-11-07] MEDS: HYDROCHLOROTHIAZIDE 25 MG TABLET PO SCH (09:48)
[2016-11-07] MEDS: ENOXAPARIN SODIUM INJ 40 MG/0.4 ML DISP.SYRIN SUBCUT SCH (09:49)
[2016-11-07] MEDS: GABAPENTIN 300 MG CAPSULE PO SCH ×2 (09:49→21:06)
[2016-11-07] MEDS: ALLOPURINOL 300 MG TABLET PO SCH (17:46)
[2016-11-07] MEDS: ERTAPENEM SODIUM 1 GM in NORMAL SALINE 50 ML IV SCH (17:46)
[2016-11-07] MEDS: ATORVASTATIN CALCIUM 40 MG TABLET PO SCH (21:05)
[2016-11-07] MEDS: CLOPIDOGREL BISULFATE 75 MG TABLET PO SCH (21:06)
[2016-11-08] MEDS: LANSOPRAZOLE 30 MG TAB.RAP.DR PO SCH (05:11)
[2016-11-08 06:03] LABS: URIC ACID 3.6 mg/dL (3.5-8.5)
--- NOTE | 2016-11-08 08:33 | PDOC PROGRESS REPORT ---
Subjective Progress Note for:: 11/08/16 Subjective:: 0 mri spinal stenosis C36 with flat cord & narrow foramina R24 B45 L56. Dr Hernadez ncs+ c5 radiculopathy. Knee better after colchicine. Physical Exam Vital Signs: Temp Pulse Resp BP Pulse Ox 99.1 F 97 20 146/79 H 97 11/08/16 03:54 11/08/16 03:54 11/08/16 03:54 11/08/16 03:54 11/08/16 03:54 Intake & Output 11/06/16 11/07/16 11/08/16 07:59 07:59 07:59 Intake Total 2518 860 200 Output Total 400 1700 550 Balance 2118 -840 -350 Weight 261 lb 0.437 oz 261 lb 3.964 oz 257 lb 15.053 oz General appearance: PRESENT: no acute distress Respiratory exam: PRESENT: clear to auscultation beverley Cardiovascular exam: ABSENT: diastolic murmur, irregular rhythm, systolic murmur GI/Abdominal exam: ABSENT: mass, organolmegaly, tenderness Extremities exam: ABSENT: pedal edema Neurological exam: PRESENT: oriented to situation Psychiatric exam: PRESENT: appropriate affect Results Laboratory Results: 11/04/16 04:18 11/08/16 11/08/16 05:22 05:22 Uric Acid 3.6 Vitamin B12 576.0 TSH 1.53 Impressions: Chest X-Ray 11/01/16 18:04 IMPRESSION: LOW LUNG VOLUMES. NO SIGNIFICANT RADIOGRAPHIC FINDING IN THE CHEST. Assessment & Plan - Diagnosis (1) Pyelonephritis Is this a current diagnosis for this admission?: YesPlan: ertapenem 3 more days (2) Acute kidney injury Is this a current diagnosis for this admission?: Yes (3) Sepsis Qualifiers: Sepsis type: sepsis due to unspecified organism Qualified Code(s): A41.9 - Sepsis, unspecified organism Is this a current diagnosis for this admission?: Yes (4) Essential (primary) hypertension Is this a current diagnosis for this admission?: YesPlan: add toprol 25 now that pulse is up on hydralazine (5) Paresthesia and pain of both upper extremities Is this a current diagnosis for this admission?: YesPlan: reminded him of extensive evaluation and explained mechanism of pain and paresthesias. On maximun tolerated gabapentin. 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 May be djd. - Inpatient Certification Medical Necessity: Need for IV Antibiotics
[2016-11-08] MEDS: HYDRALAZINE HCL 50 MG TABLET PO SCH ×2 (09:45→17:25)
[2016-11-08] MEDS: GABAPENTIN 300 MG CAPSULE PO SCH ×2 (09:46→21:31)
[2016-11-08] MEDS: HYDROCHLOROTHIAZIDE 25 MG TABLET PO SCH (09:46)
[2016-11-08] MEDS: ASPIRIN 81 MG TABLET, CHEWABLE PO SCH (09:46)
[2016-11-08] MEDS: MAGNESIUM OXIDE 400 MG TABLET PO SCH ×2 (09:46→17:25)
[2016-11-08] MEDS: METOPROLOL SUCCINATE 25 MG TAB.SR.24H PO SCH (09:47)
[2016-11-08] MEDS: LUBIPROSTONE 24 MCG CAPSULE PO SCH ×2 (09:47→17:25)
[2016-11-08] MEDS: ENOXAPARIN SODIUM INJ 40 MG/0.4 ML DISP.SYRIN SUBCUT SCH (09:48)
[2016-11-08] MEDS: ERTAPENEM SODIUM 1 GM in NORMAL SALINE 50 ML IV SCH (17:25)
[2016-11-08] MEDS: ALLOPURINOL 300 MG TABLET PO SCH (17:26)
[2016-11-08] MEDS: ACETAMINOPHEN 325 MG TABLET PO PRN (17:32)
[2016-11-08] MEDS: ATORVASTATIN CALCIUM 40 MG TABLET PO SCH (21:31)
[2016-11-08] MEDS: CLOPIDOGREL BISULFATE 75 MG TABLET PO SCH (21:31)
[2016-11-09] MEDS: LANSOPRAZOLE 30 MG TAB.RAP.DR PO SCH (06:30)
--- NOTE | 2016-11-09 07:48 | PDOC PROGRESS REPORT ---
Subjective Progress Note for:: 11/09/16 Subjective:: several stools on amitiza. Was not telling staff Physical Exam Vital Signs: Temp Pulse Resp BP Pulse Ox 98.7 F 92 17 120/52 L 95 11/09/16 04:00 11/09/16 04:00 11/09/16 04:00 11/09/16 04:00 11/09/16 04:00 Intake & Output 11/07/16 11/08/16 11/09/16 07:59 07:59 07:59 Intake Total 380 958 1342 Output Total 1700 550 200 Balance -840 -350 820 Weight 261 lb 3.964 oz 257 lb 15.053 oz 243 lb 9.773 oz General appearance: PRESENT: no acute distress Respiratory exam: PRESENT: clear to auscultation beverley Cardiovascular exam: ABSENT: diastolic murmur, irregular rhythm, systolic murmur GI/Abdominal exam: ABSENT: mass, organolmegaly, tenderness Extremities exam: ABSENT: pedal edema Neurological exam: PRESENT: oriented to situation Psychiatric exam: PRESENT: appropriate affect Results Laboratory Results: 11/04/16 04:18 Impressions: Chest X-Ray 11/01/16 18:04 IMPRESSION: LOW LUNG VOLUMES. NO SIGNIFICANT RADIOGRAPHIC FINDING IN THE CHEST. Assessment & Plan - Diagnosis (1) Pyelonephritis Is this a current diagnosis for this admission?: YesPlan: day 6 ertapenem (2) Acute kidney injury Is this a current diagnosis for this admission?: Yes (3) Sepsis Qualifiers: Sepsis type: sepsis due to unspecified organism Qualified Code(s): A41.9 - Sepsis, unspecified organism Is this a current diagnosis for this admission?: Yes (4) Essential (primary) hypertension Is this a current diagnosis for this admission?: YesPlan: better on hctz, toprol, hydralazine (5) Paresthesia and pain of both upper extremities Is this a current diagnosis for this admission?: Yes (6) Gout attack Qualifiers: Gout site: knee Gout etiology: idiopathic Laterality: left Qualified Code(s): 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
[2016-11-09] MEDS: HYDROCHLOROTHIAZIDE 25 MG TABLET PO SCH (11:35)
[2016-11-09] MEDS: ASPIRIN 81 MG TABLET, CHEWABLE PO SCH (11:35)
[2016-11-09] MEDS: MAGNESIUM OXIDE 400 MG TABLET PO SCH ×2 (11:35→18:15)
[2016-11-09] MEDS: GABAPENTIN 300 MG CAPSULE PO SCH ×2 (11:35→22:19)
[2016-11-09] MEDS: HYDRALAZINE HCL 50 MG TABLET PO SCH ×2 (11:36→18:15)
[2016-11-09] MEDS: METOPROLOL SUCCINATE 25 MG TAB.SR.24H PO SCH (11:36)
[2016-11-09] MEDS: ENOXAPARIN SODIUM INJ 40 MG/0.4 ML DISP.SYRIN SUBCUT SCH (11:39)
[2016-11-09] MEDS: ACETAMINOPHEN 325 MG TABLET PO PRN (11:47)
[2016-11-09] MEDS: ERTAPENEM SODIUM 1 GM in NORMAL SALINE 50 ML IV SCH (18:14)
[2016-11-09] MEDS: ALLOPURINOL 300 MG TABLET PO SCH (18:15)
[2016-11-09] MEDS: CLOPIDOGREL BISULFATE 75 MG TABLET PO SCH (22:19)
[2016-11-09] MEDS: ATORVASTATIN CALCIUM 40 MG TABLET PO SCH (22:19)
[2016-11-10] MEDS: LANSOPRAZOLE 30 MG TAB.RAP.DR PO SCH (05:57)
[2016-11-10] MEDS ORDERED: ACETAMINOPHEN 325 MG TABLET PO PRN (06:54)
--- NOTE | 2016-11-10 07:14 | PDOC PROGRESS REPORT ---
Subjective Progress Note for:: 11/10/16 Subjective:: hip pain Physical Exam Vital Signs: Temp Pulse Resp BP Pulse Ox 99 F 86 17 133/59 H 93 11/10/16 04:00 11/10/16 04:00 11/10/16 04:00 11/10/16 04:00 11/10/16 04:00 Intake & Output 11/08/16 11/09/16 11/10/16 07:59 07:59 07:59 Intake Total 200 1020 986 Output Total 550 200 300 Balance -350 820 686 Weight 257 lb 15.053 oz 243 lb 9.773 oz 248 lb 10.903 oz General appearance: PRESENT: no acute distress Respiratory exam: PRESENT: clear to auscultation bevreley Cardiovascular exam: ABSENT: diastolic murmur, irregular rhythm, systolic murmur GI/Abdominal exam: ABSENT: mass, organolmegaly, tenderness Extremities exam: ABSENT: pedal edema Neurological exam: PRESENT: oriented to situation Psychiatric exam: PRESENT: appropriate affect Results Laboratory Results: 11/04/16 04:18 Impressions: Chest X-Ray 11/01/16 18:04 IMPRESSION: LOW LUNG VOLUMES. NO SIGNIFICANT RADIOGRAPHIC FINDING IN THE CHEST. Assessment & Plan - Diagnosis (1) Pyelonephritis Is this a current diagnosis for this admission?: YesPlan: last ertapenem tonight (2) Acute kidney injury Is this a current diagnosis for this admission?: Yes (3) Sepsis Qualifiers: Sepsis type: sepsis due to unspecified organism Qualified Code(s): A41.9 - Sepsis, unspecified organism Is this a current diagnosis for this admission?: Yes (4) Essential (primary) hypertension Is this a current diagnosis for this admission?: YesPlan: good bp & pulse on hctz, toprol, hydralazine (5) Paresthesia and pain of both upper extremities Is this a current diagnosis for this admission?: Yes (6) Gout attack Qualifiers: Gout site: knee Gout etiology: idiopathic Laterality: left Qualified Code(s): 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
[2016-11-10] MEDS: ENOXAPARIN SODIUM INJ 40 MG/0.4 ML DISP.SYRIN SUBCUT SCH (09:24)
[2016-11-10] MEDS: GABAPENTIN 300 MG CAPSULE PO SCH ×2 (09:25→21:10)
[2016-11-10] MEDS: HYDRALAZINE HCL 50 MG TABLET PO SCH ×2 (09:25→18:20)
[2016-11-10] MEDS: HYDROCHLOROTHIAZIDE 25 MG TABLET PO SCH (09:26)
[2016-11-10] MEDS: ASPIRIN 81 MG TABLET, CHEWABLE PO SCH (09:26)
[2016-11-10] MEDS: METOPROLOL SUCCINATE 25 MG TAB.SR.24H PO SCH (09:26)
[2016-11-10] MEDS: MAGNESIUM OXIDE 400 MG TABLET PO SCH ×2 (09:26→18:20)
[2016-11-10] MEDS: ALLOPURINOL 300 MG TABLET PO SCH (18:20)
[2016-11-10] MEDS: ERTAPENEM SODIUM 1 GM in NORMAL SALINE 50 ML IV SCH (18:20)
[2016-11-10] MEDS: ATORVASTATIN CALCIUM 40 MG TABLET PO SCH (21:10)
[2016-11-10] MEDS: CLOPIDOGREL BISULFATE 75 MG TABLET PO SCH (21:10)
[2016-11-11] MEDS: LANSOPRAZOLE 30 MG TAB.RAP.DR PO SCH (06:35)
--- NOTE | 2016-11-11 08:02 | PDOC DISCHARGE SUMMARY ---
General - Admit/Disc Date/PCP Admission Date/Primary Care Provider: 11/02/16 05:04 MARC LANZA MD Discharge Date: 11/11/16 - Discharge Diagnosis (1) Pyelonephritis Is this a current diagnosis for this admission?: Yes (2) Acute kidney injury Is this a current diagnosis for this admission?: Yes (3) Sepsis Is this a current diagnosis for this admission?: Yes (4) Essential (primary) hypertension Is this a current diagnosis for this admission?: Yes (5) Paresthesia and pain of both upper extremities Is this a current diagnosis for this admission?: Yes (6) Gout attack Is this a current diagnosis for this admission?: Yes - Additional Information Resuscitation Status: Full Code Discharge Diet: Cardiac Discharge Activity: Activity As Tolerated Home Medications: Allopurinol [Zyloprim 300 mg Tablet] 300 mg PO QPM 11/01/16 Aspirin [Aspirin 81 mg Chewable Tablet] 81 mg PO DAILY 11/01/16 Atorvastatin Calcium [Lipitor 40 mg Tablet] 40 mg PO QHS 11/01/16 Clopidogrel Bisulfate [Plavix 75 mg Tablet] 75 mg PO QHS 11/01/16 Gabapentin [Neurontin] 600 mg PO BID 11/01/16 Magnesium Oxide [Mag-Ox 400 mg Tablet] 400 mg PO BID 11/01/16 Nitroglycerin [Nitrostat] 0.4 mg SL Q5M 11/01/16 Pantoprazole Sodium [Protonix] 40 mg PO QAM 11/01/16 Hydralazine HCl [Apresoline 50 mg Tablet] 100 mg PO BID #120 tablet 11/11/16 Hydrochlorothiazide 25 mg PO DAILY #90 tablet 11/11/16 Metoprolol Succinate [Toprol Xl 25 mg Tab.sr] 25 mg PO DAILY #30 tab.sr.24h 02/18 History of Present Illness Patient complains of: fever History of Present Illness: ZAIRA GOOD is a 76 year old male with 2d days of fever, frequency, urgency, flank pain. Since 2013 he had 3 admissions for uti. In 2011 hematuria emery he had multiple renal cysts. Hospital Course Hospital Course: urine grew enterobacter sensitive to ertapenem & nitrofurantoin. Levaquin was switched to ertapenem. 7th dose was last night. Tmax was 100.8 last night but he denied nasal congestion, sore throat, cough, diarrhea, and dysuria. He had been afebrile for days. He had transient L knee pain that improved on colchicine in spite of uric acid 5.8. He complained of neck pain radiating to fingers again. 2009 full workup revealed spinal stenosis 36. He remained on gabapentin 600mg bid. Pressure was high and pulse was low. Metoprolol was decreased and hydralazine was added. Creatinine came down. Physical Exam Vital Signs: Temp Pulse Resp BP Pulse Ox 99.4 F 56 L 18 96/48 L 96 11/11/16 03:41 11/11/16 03:41 11/11/16 03:41 11/11/16 03:41 11/11/16 03:41 Intake & Output 11/09/16 11/10/16 11/11/16 07:59 07:59 07:59 Intake Total 9870 041 4613 Output Total 789 606 1265 Balance 820 686 410 Weight 243 lb 9.773 oz 248 lb 10.903 oz 248 lb 14.43 oz General appearance: PRESENT: no acute distress Respiratory exam: PRESENT: clear to auscultation beverley Cardiovascular exam: ABSENT: diastolic murmur, irregular rhythm, systolic murmur GI/Abdominal exam: ABSENT: mass, organolmegaly, tenderness Extremities exam: ABSENT: pedal edema Neurological exam: PRESENT: oriented to situation Psychiatric exam: PRESENT: appropriate affect Results Laboratory Results: 11/04/16 04:18 Labs- Last Values WBC 15.2 10^3/uL (4.0-10.5) H 11/01/16 18:25 RBC 4.19 10^6/uL (4.35-5.55) L 11/01/16 18:25 Hgb 12.7 g/dL (13.5-17.0) L 11/01/16 18:25 Hct 39.5 % (37.9-51.0) 11/01/16 18:25 MCV 95 fl (80-97) 11/01/16 18:25 MCH 30.5 pg (27.0-33.4) 11/01/16 18:25 MCHC 32.2 g/dL (32.0-36.0) 11/01/16 18:25 RDW 17.1 % (11.5-14.0) H 11/01/16 18:25 Plt Count 155 10^3/uL (150-450) 11/01/16 18:25 Seg Neutrophils % 78.8 % (42-78) H 11/01/16 18:25 Lymphocytes % 10.1 % (13-45) L 11/01/16 18:25 Monocytes % 10.9 % (3-13) 11/01/16 18:25 Eosinophils % 0.0 % (0-6) 11/01/16 18:25 Basophils % 0.2 % (0-2) 11/01/16 18:25 Absolute Neutrophils 12.0 10^3/uL (1.7-8.2) H 11/01/16 18:25 Absolute Lymphocytes 1.5 10^3/uL (0.5-4.7) 11/01/16 18:25 Absolute Monocytes 1.7 10^3/uL (0.1-1.4) H 11/01/16 18:25 Absolute Eosinophils 0.0 10^3/uL (0.0-0.6) 11/01/16 18:25 Absolute Basophils 0.0 10^3/uL (0.0-0.2) 11/01/16 18:25 Sodium 138.5 mmol/L (137-145) 11/04/16 04:18 Potassium 4.2 mmol/L (3.6-5.0) 11/04/16 04:18 Chloride 108 mmol/L (98-107) H 11/04/16 04:18 Carbon Dioxide 20 mmol/L (22-30) L 11/04/16 04:18 Anion Gap 11 (5-19) 11/04/16 04:18 BUN 20 mg/dL (7-20) 11/04/16 04:18 Creatinine 1.18 mg/dL (0.52-1.25) 11/04/16 04:18 Est GFR ( Amer) > 60 (>60) 11/04/16 04:18 Est GFR (Non-Af Amer) > 60 (>60) 11/04/16 04:18 Glucose 87 mg/dL (75-110) 11/04/16 04:18 Hemoglobin A1c % 5.8 % (4.7-6.0) 11/08/16 05:22 Uric Acid 3.6 mg/dL (3.5-8.5) 11/08/16 05:22 Calcium 8.4 mg/dL (8.4-10.2) 11/04/16 04:18 Total Bilirubin 1.2 mg/dL (0.2-1.3) 11/01/16 18:25 Direct Bilirubin 0.5 mg/dL (0.0-0.4) H 11/01/16 18:25 Indirect Bilirubin Not Reportable 11/01/16 18:25 Neonat Total Bilirubin Not Reportable 11/01/16 18:25 AST 41 U/L (17-59) 11/01/16 18:25 ALT 36 U/L (21-72) 11/01/16 18:25 Alkaline Phosphatase 115 U/L (38-126) 11/01/16 18:25 Creatine Kinase 128 U/L (55-170) 11/01/16 18:25 CK-MB (CK-2) 0.64 ng/mL (<4.55) 11/01/16 18:25 Troponin I 0.024 ng/mL 11/01/16 22:39 Total Protein 8.1 g/dL (6.3-8.2) 11/01/16 18:25 Albumin 4.4 g/dL (3.5-5.0) 11/01/16 18:25 Vitamin B12 576.0 pg/mL (239-931) 11/08/16 05:22 TSH 1.53 uIU/mL (0.47-4.68) 11/08/16 05:22 Urine Color YELLOW 11/01/16 18:25 Urine Appearance CLOUDY 11/01/16 18:25 Urine pH 5.0 (5.0-9.0) 11/01/16 18:25 Ur Specific Avella 1.021 11/01/16 18:25 Urine Protein 100 mg/dL (NEGATIVE) H 11/01/16 18:25 Urine Glucose (UA) NEGATIVE mg/dL (NEGATIVE) 11/01/16 18:25 Urine Ketones NEGATIVE mg/dL (NEGATIVE) 11/01/16 18:25 Urine Blood NEGATIVE (NEGATIVE) 11/01/16 18:25 Urine Nitrite NEGATIVE (NEGATIVE) 11/01/16 18:25 Urine Bilirubin NEGATIVE (NEGATIVE) 11/01/16 18:25 Urine Urobilinogen 2.0 mg/dL (<2.0) H 11/01/16 18:25 Ur Leukocyte Esterase MODERATE (NEGATIVE) H 11/01/16 18:25 Urine WBC (Auto) >182 /HPF 11/01/16 18:25 Urine RBC (Auto) 3 /HPF 11/01/16 18:25 U Hyaline Cast (Auto) 2 /LPF 11/01/16 18:25 Urine WBC Clumps FEW /HPF 11/01/16 18:25 Squamous Epi Cells Auto 2 /HPF 11/01/16 18:25 Urine Mucus (Auto) RARE /LPF 11/01/16 18:25 Urine Ascorbic Acid 40 (NEGATIVE) H 11/01/16 18:25 Impressions: Chest X-Ray 11/01/16 18:04 IMPRESSION: LOW LUNG VOLUMES. NO SIGNIFICANT RADIOGRAPHIC FINDING IN THE CHEST. Qualifiers PATEINT BEING DISCHARGED WITH ANY OF THE FOLLOWING DIAGNOSIS?: No Plan Discharge Plan: home. 8d ov
[2016-11-11 08:36] VITALS: BP 125/58
== END 2016-11-11 09:30 | disposition home or self-care (01) | DRG 872 ==
LOC: ER 17:19 → UNDOADMIN 20:48 → EH 20:48 → 4N 22:53 → EH 23:25 → UNDOADMIN 23:25 → 4N 23:25 → EH 11-02 05:04
PROVIDERS: ADMIT Family Medicine; ATTEND Family Medicine
DX: A41.9 Sepsis, unspecified organism (principal); N12 Tubulo-interstitial nephritis, not specified as acute or chronic; N17.9 Acute kidney failure, unspecified; Q61.02 Congenital multiple renal cysts; I10 Essential (primary) hypertension; R20.9 Unspecified disturbances of skin sensation; I25.10 Atherosclerotic heart disease of native coronary artery without angina pectoris; E78.5 Hyperlipidemia, unspecified; G47.30 Sleep apnea, unspecified; K21.9 Gastro-esophageal reflux disease without esophagitis; K44.9 Diaphragmatic hernia without obstruction or gangrene; M10.062 Idiopathic gout, left knee; B95.2 Enterococcus as the cause of diseases classified elsewhere; M48.02 Spinal stenosis, cervical region; Z16.23 Resistance to quinolones and fluoroquinolones; Z79.82 Long term (current) use of aspirin; Z79.899 Other long term (current) drug therapy; Z95.5 Presence of coronary angioplasty implant and graft; Z88.8 Allergy status to other drugs, medicaments and biological substances; Z90.49 Acquired absence of other specified parts of digestive tract; Z82.3 Family history of stroke; Z82.49 Family history of ischemic heart disease and other diseases of the circulatory system
CPT/HCPCS: 36415; 71010; 80048; 80053; 81001; 82550; 82553; 82607; 83036; 84443; 84484; 84550; 85025; 87040; 87086; 87088; 87186; 93005; 93010; 99285; J1335; J1650; J1956; J3480; J7030

== ENCOUNTER 2017-05-18 11:38 | Emergency (ER) | payer MEDICARE, OTHER ==
--- NOTE | 2017-05-18 11:56 | ER Document Report ---
ED Medical Screen (RME) - General Chief Complaint: Hand Swelling Stated Complaint: HAND SWELLING Time Seen by Provider: 05/18/17 11:53 Mode of Arrival: Ambulatory Information source: Patient TRAVEL OUTSIDE OF THE [place] IN LAST 30 DAYS: No - HPI Patient complains to provider of: L hand swelling Onset: Just prior to arrival - pt woke up feeling well but noticed that his L hand was swollen just [employer]. He denies trauma. - Related Data Allergies/Adverse Reactions: TRIP Inhibitors [Trip Inhibitors] Allergy (Severe, Verified 05/18/17 11:42) Angioneurotic Edema ezetimibe [From Zetia] Adverse Reaction (Verified 05/18/17 11:42) Past Medical History - Past Medical History Cardiac Medical History: Reports: Hx Coronary Artery Disease - 2011 [facility]end [place], Hx Hypercholesterolemia, Hx Hypertension - meds Denies: Hx Atrial Fibrillation, Hx Congestive Heart Failure, Hx Heart Attack Pulmonary Medical History: Reports: Hx Pneumonia - 89, Hx Sleep Apnea - cpap Denies: Hx Asthma, Hx Bronchitis, Hx COPD, Hx Tuberculosis Neurological Medical History: Reports: Hx Seizures - 3 in 2009 none since. Had veeg by [facility] Endocrine Medical History: Denies: Hx Diabetes Mellitus Type 2 Renal/ Medical History: Denies: Hx End Stage Renal Disease, Hx Kidney Stones, Hx Peritoneal Dialysis GI Medical History: Reports: Hx Gastroesophageal Reflux Disease, Hx Hiatal Hernia. Denies: Hx Pancreatitis, Hx Ulcer Musculoskeltal Medical History: Reports Hx Arthritis - all over, Reports Hx Gout Psychiatric Medical History: Denies: Hx Depression Past Surgical History: Reports: Hx Cardiac Catheterization, Hx Cholecystectomy, Hx Coronary Stent - 2011, [place]. Denies: Hx Appendectomy, Hx Bowel Surgery, Hx Open Heart Surgery, Hx Tonsillectomy - Immunizations Immunizations up to date: Yes Hx Diphtheria, Pertussis, Tetanus Vaccination: No Physical Exam - Vital signs Vitals: Temp Pulse Resp BP Pulse Ox 98.9 F 75 18 169/83 H 93 05/18/17 11:44 05/18/17 11:44 05/18/17 11:44 05/18/17 11:44 05/18/17 11:44 Course - Vital Signs Vital signs: Temp Pulse Resp BP Pulse Ox 98.9 F 75 18 169/83 H 93 05/18/17 11:44 05/18/17 11:44 05/18/17 11:44 05/18/17 11:44 05/18/17 11:44
--- NOTE | 2017-05-18 12:29 | RADIOLOGY REPORT (SQ) ---
EXAM DESCRIPTION: HAND LEFT 3 VIEWS COMPLETED DATE/TIME: 05/18/2017 12:19 pm REASON FOR STUDY: L hand swelling COMPARISON: None. EXAM PARAMETERS: NUMBER OF VIEWS: Three views. TECHNIQUE: AP, lateral and oblique radiographic images acquired of the left hand. LIMITATIONS: None. FINDINGS: MINERALIZATION: Osteopenia. BONES: No acute fracture or dislocation. No worrisome bone lesions. No significant osteophytes. JOINTS: No erosions. No josefa-articular osteopenia. No chondrocalcinosis. SOFT TISSUES: No swelling. No calcifications. OTHER: No other significant finding. IMPRESSION: NEGATIVE STUDY OF THE LEFT HAND. NO EXPLANATION FOR PAIN. TECHNICAL DOCUMENTATION: JOB ID: [id number] [employer]- All Rights Reserved
[2017-05-18 13:52] LABS: ABSOLUTE LYMPHOCYTES (AUTO) 1.3 10^3/uL (0.5-4.7); ABSOLUTE MONOCYTES (AUTO) 0.6 10^3/uL (0.1-1.4); ABSOLUTE NEUT (AUTO) 8.6 10^3/uL (1.7-8.2); BASOPHILS % (AUTO) 0.1 % (0-2); HEMATOCRIT 37.8 % (37.9-51.0); HEMOGLOBIN 12.3 g/dL (13.5-17.0); LYMPHOCYTES % (AUTO) 12.3 % (13-45); MEAN CORPUSCULAR HEMOGLOBIN 30.9 pg (27.0-33.4); MEAN CORPUSCULAR HGB CONC 32.6 g/dL (32.0-36.0); MEAN CORPUSCULAR VOLUME 95 fl (80-97); MONOCYTES % (AUTO) 5.9 % (3-13); PLATELET COUNT 239 10^3/uL (150-450); RED BLOOD COUNT 3.99 10^6/uL (4.35-5.55); RED CELL DISTRIBUTION WIDTH 17.4 % (11.5-14.0); SEGMENTED NEUTROPHILS % (AUTO) 81.7 % (42-78); TOTAL CELLS COUNTED % (AUTO) 100 %; WHITE BLOOD COUNT 10.5 10^3/uL (4.0-10.5)
[2017-05-18 14:05] LABS: ALANINE AMINOTRANSFERASE 32 U/L (21-72); ALBUMIN 5.1 g/dL (3.5-5.0); ALKALINE PHOSPHATASE 105 U/L (38-126); ANION GAP 12 (5-19); ASPARTATE AMINO TRANSFERASE 30 U/L (17-59); BILIRUBIN,DIRECT 0.2 mg/dL (0.0-0.4); BILIRUBIN,TOTAL 0.3 mg/dL (0.2-1.3); BLOOD UREA NITROGEN 41 mg/dL (7-20); CALCIUM 10.1 mg/dL (8.4-10.2); CARBON DIOXIDE 28 mmol/L (22-30); CHLORIDE 107 mmol/L (98-107); GLUCOSE 93 mg/dL (75-110); POTASSIUM 4.7 mmol/L (3.6-5.0); URIC ACID 3.4 mg/dL (3.5-8.5)
--- NOTE | 2017-05-18 14:55 | ER Document Report ---
ED General - General Chief Complaint: Hand Swelling Stated Complaint: HAND SWELLING Time Seen by Provider: 05/18/17 11:53 Mode of Arrival: Ambulatory TRAVEL OUTSIDE OF THE [place] IN LAST 30 DAYS: No - HPI Patient complains to provider of: Left hand swelling Notes: Patient is coming in for evaluation left hand swelling. Patient states he was at [employer] when his left hand started swelling on the dorsum at the MCP joint going to the hyper thenar eminence of the MCP joint of the thumb. Patient denies any injury states he was wearing his watch to remove his watch watch the new denies any itching denies any pain. Resting comfortably upon my evaluation. - Related Data Allergies/Adverse Reactions: TRIP Inhibitors [Trip Inhibitors] Allergy (Severe, Verified 05/18/17 11:42) Angioneurotic Edema ezetimibe [From Zetia] Adverse Reaction (Verified 05/18/17 11:42) Past Medical History - General Information source: Patient - Social History Smoking Status: Former Smoker Frequency of alcohol use: None Drug Abuse: None Family History: CVA, Hypertension Patient has suicidal ideation: No Patient has homicidal ideation: No - Past Medical History Cardiac Medical History: Reports: Hx Coronary Artery Disease - 2011 [facility]end [place], Hx Hypercholesterolemia, Hx Hypertension - meds Denies: Hx Atrial Fibrillation, Hx Congestive Heart Failure, Hx Heart Attack Pulmonary Medical History: Reports: Hx Pneumonia - 1944, Hx Sleep Apnea - cpap Denies: Hx Asthma, Hx Bronchitis, Hx COPD, Hx Tuberculosis Neurological Medical History: Reports: Hx Seizures - 3 in 2009 none since. Had veeg by [facility] Medical History: Denies: Hx Diabetes Mellitus Type 2 Renal/ Medical History: Denies: Hx End Stage Renal Disease, Hx Kidney Stones, Hx Peritoneal Dialysis GI Medical History: Reports: Hx Gastroesophageal Reflux Disease, Hx Hiatal Hernia. Denies: Hx Pancreatitis, Hx Ulcer Musculoskeltal Medical History: Reports Hx Arthritis - all over, Reports Hx Gout Psychiatric Medical History: Denies: Hx Depression Past Surgical History: Reports: Hx Cardiac Catheterization, Hx Cholecystectomy, Hx Coronary Stent - over. Denies: Hx Appendectomy, Hx Bowel Surgery, Hx Open Heart Surgery, Hx Tonsillectomy - Immunizations Immunizations up to date: Yes Hx Diphtheria, Pertussis, Tetanus Vaccination: No Review of Systems - Review of Systems Constitutional: No symptoms reported EENT: No symptoms reported Cardiovascular: No symptoms reported Respiratory: No symptoms reported Gastrointestinal: No symptoms reported Genitourinary: No symptoms reported Male Genitourinary: No symptoms reported Musculoskeletal: Other - Hand swelling Skin: No symptoms reported Hematologic/Lymphatic: No symptoms reported Neurological/Psychological: No symptoms reported Physical Exam - Vital signs Vitals: Temp Pulse Resp BP Pulse Ox 98.9 F 75 18 169/83 H 93 05/18/17 11:44 05/18/17 11:44 05/18/17 11:44 05/18/17 11:44 05/18/17 11:44 Interpretation: Normal - General General appearance: Appears well, Alert - HEENT Head: Normocephalic, Atraumatic Eyes: Normal Pupils: PERRL - Respiratory Respiratory status: No respiratory distress Chest status: Nontender Breath sounds: Normal Chest palpation: Normal - Cardiovascular Rhythm: Regular Heart sounds: Normal auscultation Murmur: No - Abdominal Inspection: Normal Distension: No distension Bowel sounds: Normal Tenderness: Nontender Organomegaly: No organomegaly - Back Back: Normal, Nontender - Extremities General upper extremity: Normal inspection, Nontender, Edema - Significant swelling to the dorsum of the hand at the MCP joints of the index and base of the thumb capillary refill are intact distal to swelling. Range of motion is intact patient is able to make a fist there is no pain in passive flexion of any finger. Area is not warm normal temperature, Normal color, Normal ROM, Normal temperature General lower extremity: Normal inspection, Nontender, Normal color, Normal ROM , Normal temperature, Normal weight bearing. No: Booker's sign - Neurological Neuro grossly intact: Yes Cognition: Normal Orientation: AAOx4 [place] Coma Scale Eye Opening: Spontaneous [place] Coma Scale Verbal: Oriented [place] Coma Scale Motor: Obeys Commands Conor Coma Scale Total: 15 Speech: Normal Motor strength normal: LUE, RUE, LLE, RLE Sensory: Normal - Psychological Associated symptoms: Normal affect, Normal mood - Skin Skin Temperature: Warm Skin Moisture: Dry Skin Color: Normal Course - Re-evaluation Re-evalutation: 05/18/17 16:05 Unclear etiology for localized swelling of the patient's hand. 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 Could be possibly localized angioedema otherwise at this time the critical etiology seen patient was encouraged to elevate the hand place ice on it also possible compression dressing and Benadryl at home. Encouraged patient to take his wedding ring off his finger. Patient was encouraged to take Benadryl for possible underlying allergic reaction at home. Otherwise to continue to monitor the hand the hand became warm increased pain or fever return to the ER immediately. Patient states understanding will discharge home. - Vital Signs Vital signs: Temp Pulse Resp BP Pulse Ox 97.6 F 54 L 16 172/72 H 98 05/18/17 15:02 05/18/17 15:02 05/18/17 15:02 05/18/17 15:02 05/18/17 15:02 - Laboratory Result Diagrams: 05/18/17 13:27 05/18/17 13:27 Laboratory results interpreted by me: 05/18/17 05/18/17 13:27 13:27 RBC 3.99 L Hgb 12.3 L Hct 37.8 L RDW 17.4 H Seg Neutrophils % 81.7 H Lymphocytes % 12.3 L Absolute Neutrophils 8.6 H Sodium 147.0 H BUN 41 H Creatinine 1.57 H Est GFR ( Amer) 52 L Est GFR (Non-Af Amer) 43 L Uric Acid 3.4 L Albumin 5.1 H Discharge - Discharge Clinical Impression: Swelling of left hand Disposition: HOME, SELF-CARE Instructions: Edema, Peripheral ([facility]) Additional Instructions: Elevate your left hand. I recommend removing your ring . Keep her hand elevated above the level of your heart. Would recommend follow-up with your primary care physician call his office tomorrow for follow-up appointment. He may place ice on the hand to help out with the swelling. Return to ER symptoms worsen. Referrals: MARC LANZA MD [Primary Care Provider] - Follow up as needed
[2017-05-18 15:07] VITALS: BP 172/72
== END 2017-05-18 15:07 | disposition home or self-care (01) ==
LOC: ER 11:38
DX: M79.89 Other specified soft tissue disorders (principal); I25.10 Atherosclerotic heart disease of native coronary artery without angina pectoris; E78.00 Pure hypercholesterolemia, unspecified; I10 Essential (primary) hypertension; Z87.891 Personal history of nicotine dependence; Z90.49 Acquired absence of other specified parts of digestive tract
CPT/HCPCS: 36415; 80053; 84550; 85025; 99283

== ENCOUNTER 2017-07-26 21:31 | Emergency (ER) | payer MEDICARE, OTHER ==
--- NOTE | 2017-07-26 23:09 | RADIOLOGY REPORT (SQ) ---
EXAM DESCRIPTION: CT HEAD WITHOUT COMPLETED DATE/TIME: 07/26/2017 11:00 pm REASON FOR STUDY: fall, head trauma COMPARISON: 06/08/2013 TECHNIQUE: Axial images acquired through the brain without intravenous contrast. Images reviewed wi th bone, brain and subdural windows. Images stored on PACS. All CT scanners at this facility use dose modulation, iterative reconstruction, and/or weight based d osing when appropriate to reduce radiation dose to as low as reasonably achievable (ALARA). [facility]: Dose Right [facility]: CareDose [facility]: Dose Right [facility]: Teradose 4D [facility]: Smart [employer] RADIATION DOSE: CT Rad equipment meets quality standard of care and radiation dose reduction techniq ues were employed. CTDIvol: 64.6 mGy. DLP: 1034 mGy-cm. mGy. LIMITATIONS: None. FINDINGS: VENTRICLES: Normal size and contour. CEREBRUM: No masses. No hemorrhage. No midline shift. No evidence for acute infarction. Normal gra y/white matter differentiation. No areas of low density in the white matter. CEREBELLUM: No masses. No hemorrhage. No alteration of density. No evidence for acute infarction. EXTRAAXIAL SPACES: No fluid collections. No masses. ORBITS AND GLOBE: No intra- or extraconal masses. Normal contour of globe without masses. CALVARIUM: No fracture. PARANASAL SINUSES: No fluid or mucosal thickening. SOFT TISSUES: No mass or hematoma. OTHER: No other significant finding. IMPRESSION: NORMAL BRAIN CT WITHOUT CONTRAST. EVIDENCE OF ACUTE STROKE: No COMMENT: Quality ID # [id number]: Final reports with documentation of one or more dose reduction techniques (e.g., Automated exposure control, adjustment of the mA and/or kV according to patient size, use of iterative reconstruction technique) TECHNICAL DOCUMENTATION: JOB ID: [id number] [employer]- All Rights Reserved Reading location - IP/workstation name: [email or web address]
--- NOTE | 2017-07-26 23:11 | RADIOLOGY REPORT (SQ) ---
EXAM DESCRIPTION: CT CERVICAL SPINE WITHOUT COMPLETED DATE/TIME: 07/26/2017 11:00 pm REASON FOR STUDY: fall, head trauma COMPARISON: None. TECHNIQUE: Axial images acquired through the cervical spine without intravenous contrast. Images re viewed with lung, soft tissue and bone windows. Reconstructed coronal and sagittal MPR images review ed. Images stored on PACS. All CT scanners at this facility use dose modulation, iterative reconstruction, and/or weight based d osing when appropriate to reduce radiation dose to as low as reasonably achievable (ALARA). [facility]: Dose Right [facility]: CareDose [facility]: Dose Right [facility]: Teradose 4D [facility]: Smart [employer] RADIATION DOSE: CT Rad equipment meets quality standard of care and radiation dose reduction techniq ues were employed. CTDIvol: 24.4 mGy. DLP: 446 mGy-cm. mGy. LIMITATIONS: None. FINDINGS: ALIGNMENT: Anatomic. MINERALIZATION: Normal. VERTEBRAL BODIES: No fractures or dislocation. DISCS: Multilevel disc space narrowing with osteophytes. FACETS, LATERAL MASSES, POSTERIOR ELEMENTS: Facet arthropathy. No fractures. No dislocation. No ac [place] findings. HARDWARE: None in the spine. VISUALIZED RIBS: No fractures. LUNG APICES AND SOFT TISSUES: No significant or acute findings. OTHER: No other significant finding. IMPRESSION: CHRONIC DEGENERATIVE CHANGES. NO ACUTE FINDINGS. TECHNICAL DOCUMENTATION: JOB ID: [id number] Quality ID # [id number]: Final reports with documentation of one or more dose reduction techniques (e.g., Au tomated exposure control, adjustment of the mA and/or kV according to patient size, use of iterative reconstruction technique) 2010 [employer]- All Rights Reserved Reading location - IP/workstation name: [email or web address]
[2017-07-26] MEDS ORDERED: DIPH/PERTUSS(ACELL)/TETANUS VAC/PF 0.5 ML SYR (>=10YO) IM ONE (23:26)
--- NOTE | 2017-07-26 23:28 | ER Document Report ---
ED General - General Chief Complaint: Head Injury without LOC Stated Complaint: FALL/HEAD INJURY Time Seen by Provider: 07/26/17 22:41 Notes: Patient is a 77 year old male currently anticoagulated on clopidogrel for a history of prior stents who presents after striking his head on a desk earlier today. Patient states that he lost his balance when he was trying to reach for a handle to turn on the fireplace. States that he fell backwards striking the right posterior aspect of his scalp on the edge of the desk. States there was initially some mild bleeding from the area but that has stopped independently without any intervention. He denies any loss of consciousness, vomiting, change in behavior, confusion, or focal weakness or numbness since the head trauma. 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 TRAVEL OUTSIDE OF THE [place] IN LAST 30 DAYS: No - Related Data Allergies/Adverse Reactions: TRIP Inhibitors [Trip Inhibitors] Allergy (Severe, Verified 05/18/17 11:42) Angioneurotic Edema ezetimibe [From Zetia] Adverse Reaction (Verified 05/18/17 11:42) Past Medical History - General Information source: Patient - Social History Smoking Status: Never Smoker Chew tobacco use (# tins/day): No Frequency of alcohol use: None Drug Abuse: None Lives with: Spouse/Significant other Family History: CVA, Hypertension Patient has suicidal ideation: No Patient has homicidal ideation: No - Past Medical History Cardiac Medical History: Reports: Hx Coronary Artery Disease - 2011 [facility], Hx Hypercholesterolemia, Hx Hypertension - meds Denies: Hx Atrial Fibrillation, Hx Congestive Heart Failure, Hx Heart Attack Pulmonary Medical History: Reports: Hx Pneumonia - 1944, Hx Sleep Apnea - cpap Denies: Hx Asthma, Hx Bronchitis, Hx COPD, Hx Tuberculosis Neurological Medical History: Reports: Hx Seizures - 3 in 2009 none since. Had veeg by [facility] Medical History: Denies: Hx Diabetes Mellitus Type 2 Renal/ Medical History: Denies: Hx End Stage Renal Disease, Hx Kidney Stones, Hx Peritoneal Dialysis GI Medical History: Reports: Hx Gastroesophageal Reflux Disease, Hx Hiatal Hernia. Denies: Hx Pancreatitis, Hx Ulcer Musculoskeltal Medical History: Reports Hx Arthritis - all over, Reports Hx Gout Psychiatric Medical History: Denies: Hx Depression Past Surgical History: Reports: Hx Cardiac Catheterization, Hx Cholecystectomy, Hx Coronary Stent - 2011, [facility]. Denies: Hx Appendectomy, Hx Bowel Surgery, Hx Open Heart Surgery, Hx Tonsillectomy - Immunizations Immunizations up to date: Yes Hx Diphtheria, Pertussis, Tetanus Vaccination: No Review of Systems - Review of Systems Notes: Constitutional: Negative for fever. Eyes: Negative for visual changes. ENT: Negative for facial injury Cardiovascular: Negative for chest injury. Respiratory: Negative for shortness of breath. Gastrointestinal: Negative for abdominal injury. Genitourinary: Negative for genital injury Musculoskeletal: Negative for back injury. Skin: Positive for laceration/abrasions. Neurological: Positive for head injury. Physical Exam - Vital signs Vitals: Temp Pulse BP Pulse Ox 98.0 F 78 197/74 H 96 07/26/17 21:39 07/26/17 21:39 07/26/17 21:39 07/26/17 21:39 Interpretation: Hypertensive Notes: PHYSICAL EXAMINATION: GENERAL: Well-appearing, no acute distress. HEAD: Atraumatic, normocephalic. EYES: Pupils equal round and reactive to light, extraocular movements intact, sclera anicteric, conjunctiva are normal. ENT: nares patent, no oral pharyngeal trauma. No hemotympanum, no Love's sign , no raccoon eyes. NECK: No midline cervical spine tenderness. Patient able to move their head to 45 bilaterally without any discomfort. LUNGS: Breath sounds clear to auscultation bilaterally and equal. No wheezes rales or rhonchi. HEART: Regular rate and rhythm without murmurs. CHEST WALL: No ecchymosis over the chest wall. ABDOMEN: Soft, nontender, normoactive bowel sounds. No guarding, no rebound. No seatbelt sign. EXTREMITIES: Normal range of motion, no pitting or edema. No long bone deformities. BACK: No midline spinal tenderness, step-offs, or deformities. NEUROLOGICAL: Face symmetric. Tongue protrudes midline. Extraocular motions intact. Pupils are 2 mm and equally reactive. Normal speech, normal gait. 5 out of 5 strength in both the distal and proximal upper and lower extremities bilaterally. Sensation is grossly intact throughout. Finger to nose testing normal. Pronator drift normal. PSYCH: Normal mood, normal affect. SKIN: Warm, Dry, normal turgor, superficial lacerations the right posterior scalp that is hemostatic Course - Re-evaluation Re-evalutation: 07/26/17 23:26 Presentation of a well appearing elderly patient in no acute distress, vitals within normal limits after a mechanical fall. Patient denies a syncopal episode as the cause for today's fall. No focal neurologic deficits on exam, no evidence of basilar skull fracture on exam without evidence of hemotympanum, raccoon eyes, or periauricular hematoma. No papilledema. Patient is not on anticoagulation. GCS is 15. No loss of consciousness. No episodes of vomiting. However, based on patient's age a CT of the head has been obtained which is negative for any acute intracranial bleed. Likewise, patient was unable to be clinically cleared due to age by [place] cervical spine criteria. A CT of the cervical spine was also obtained and likewise is negative for any acute fracture. No indication for further imaging of the cervical spine. Patient has no focal deformities or limited range of motion in any joint space. Chest and abdominal exam are benign without any focal tenderness, shortness of breath, or bruising over the chest or abdominal wall. Patient has no flank tenderness. There is no obvious findings on trauma exam today and therefore no further imaging or evaluation will be obtained at this time. At this time will discharge with return precautions and follow-up recommendations. Verbal discharge instructions given a the bedside and opportunity for questions given. Medication warnings reviewed. Patient is in agreement with this plan and has verbalized understanding of return precautions and the need for primary care follow-up in the next 24-72 hours. - Vital Signs Vital signs: Temp Pulse Resp BP Pulse Ox 98.9 F 68 18 142/70 H 100 07/27/17 00:14 07/27/17 00:14 07/27/17 00:14 07/27/17 00:14 07/27/17 00:14 - Diagnostic Test Radiology reviewed: Image reviewed, Reports reviewed Radiology results interpreted by me: 07/26/17 23:26 CT head: No acute intracranial bleed Discharge - Discharge Clinical Impression: Head trauma Qualifiers: Encounter type: initial encounter Qualified Code(s): S09.90XA - Unspecified injury of head, initial encounter Scalp laceration Qualifiers: Encounter type: initial encounter Qualified Code(s): S01.01XA - Laceration without foreign body of scalp, initial encounter Condition: Good Disposition: HOME, SELF-CARE Additional Instructions: You have likely sustained a contusion (bruise) to your head. If you had a CT scan done, it did not show any evidence of serious injury or bleeding. Symptoms to expect from a concussion include nausea, mild to moderate headache, difficulty concentrating or sleeping, and mild lightheadedness. These symptoms should improve over the next few days to weeks. Return to the emergency department or follow-up with your primary care doctor if your symptoms are not improving over this time. Signs of a more serious head injury include vomiting , severe headache, excessive sleepiness or confusion, and weakness or numbness in your face, arms or legs. Return immediately to the Emergency Department if you experience any of these more concerning symptoms. Rest, avoid strenuous physical or mental activity, and avoid activities that could potentially result in another head injury until all your symptoms from this head injury are completely resolved for at least 2-3 weeks. Referrals: MARC LANZA MD [Primary Care Provider] - Follow up as needed
[2017-07-27 00:18] VITALS: BP 142/70
== END 2017-07-27 00:14 | disposition home or self-care (01) ==
LOC: ER 21:31
DX: S01.01XA Laceration without foreign body of scalp, initial encounter (principal); W18.39XA Other fall on same level, initial encounter; Y93.89 Activity, other specified; I25.10 Atherosclerotic heart disease of native coronary artery without angina pectoris; I10 Essential (primary) hypertension; Z79.02 Long term (current) use of antithrombotics/antiplatelets; Z95.5 Presence of coronary angioplasty implant and graft; Z88.8 Allergy status to other drugs, medicaments and biological substances
CPT/HCPCS: 70450; 72125; 90471; 90715; 99284

== ENCOUNTER 2017-09-25 17:42 | Emergency (ER) | payer MEDICARE, OTHER ==
--- NOTE | 2017-09-25 18:53 | ER Document Report ---
ED Medical Screen (RME) - General Chief Complaint: Headache Stated Complaint: DIZZY,HEADACHE,CONGESTION Time Seen by Provider: 09/25/17 18:33 Notes: RAPID MEDICAL EVALUATION DISCLOSURE I have seen this patient as part of a Rapid Medical Evaluation and, if applicable, placed any initially appropriate orders. The patient will be seen and fully evaluated, including a full history and physical exam, by a provider ( in Main ED or Fast Track) when a room becomes available. 77-year-old male here with family who states he has had multiple complaints here recently. Started having right knee swelling and pain several days ago. Having pain walking due to the pain. He has also had cough congestion runny nose over the past 4-5 days. Cough is productive of yellow sputum. He is also feeling weak all over. He is also been having burning with urination and darker than normal urine in addition to right flank pain. Family states "he has been burning up this entire time" but no measured temperatures. He has been using Tylenol for all the symptoms. Patient's family states he has been septic in the past. EXAM Bibasilar mild wheezes with normal aeration Subtle right basilar rhonchi Mild right knee swelling TRAVEL OUTSIDE OF THE [place] IN LAST 30 DAYS: No - Related Data Allergies/Adverse Reactions: TRIP Inhibitors [Trip Inhibitors] Allergy (Severe, Verified 05/18/17 11:42) Angioneurotic Edema ezetimibe [From Zetia] Adverse Reaction (Verified 05/18/17 11:42) Past Medical History - Social History Chew tobacco use (# tins/day): No Frequency of alcohol use: None Drug Abuse: None - Past Medical History Cardiac Medical History: Reports: Hx Coronary Artery Disease - 2011 [facility], Hx Hypercholesterolemia, Hx Hypertension - meds Denies: Hx Atrial Fibrillation, Hx Congestive Heart Failure, Hx Heart Attack Pulmonary Medical History: Reports: Hx Pneumonia - 1944, Hx Sleep Apnea - cpap Denies: Hx Asthma, Hx Bronchitis, Hx COPD, Hx Tuberculosis Neurological Medical History: Reports: Hx Seizures - 3 in 2009 none since. Had veeg by [facility] Medical History: Denies: Hx Diabetes Mellitus Type 2 Renal/ Medical History: Denies: Hx End Stage Renal Disease, Hx Kidney Stones, Hx Peritoneal Dialysis GI Medical History: Reports: Hx Gastroesophageal Reflux Disease, Hx Hiatal Hernia. Denies: Hx Pancreatitis, Hx Ulcer Musculoskeltal Medical History: Reports Hx Arthritis - all over, Reports Hx Gout Psychiatric Medical History: Denies: Hx Depression Past Surgical History: Reports: Hx Cardiac Catheterization, Hx Cholecystectomy, Hx Coronary Stent - 2011, [facility]. Denies: Hx Appendectomy, Hx Bowel Surgery, Hx Open Heart Surgery, Hx Tonsillectomy - Immunizations Immunizations up to date: Yes Hx Diphtheria, Pertussis, Tetanus Vaccination: No Physical Exam - Vital signs Vitals: Temp Pulse Resp BP Pulse Ox 99.9 F 97 18 164/67 H 95 09/25/17 17:50 09/25/17 17:50 09/25/17 17:50 09/25/17 17:50 09/25/17 17:50 Course - Vital Signs Vital signs: Temp Pulse Resp BP Pulse Ox 99.9 F 97 18 164/67 H 95 09/25/17 17:50 09/25/17 17:50 09/25/17 17:50 09/25/17 17:50 09/25/17 17:50
--- NOTE | 2017-09-25 19:22 | RADIOLOGY REPORT (SQ) ---
EXAM DESCRIPTION: CT LTD RENAL STONE PROTOCOL ON COMPLETED DATE/TIME: 09/25/2017 7:04 pm REASON FOR STUDY: R flank pain COMPARISON: None. TECHNIQUE: CT scan of the abdomen and pelvis performed without intravenous or oral contrast. Images reviewed with lung, soft tissue, and bone windows. Reconstructed coronal and sagittal MPR images revi ewed. All images stored on PACS. All CT scanners at this facility use dose modulation, iterative reconstruction, and/or weight based d osing when appropriate to reduce radiation dose to as low as reasonably achievable (ALARA). [facility]: Dose Right [facility]: CareDose [facility]: Dose Right [facility]: Teradose 4D [facility]: [employer] Technologies RADIATION DOSE: CT Rad equipment meets quality standard of care and radiation dose reduction techniq ues were employed. CTDIvol: 18.0 mGy. DLP: 1033 mGy-cm.mGy. LIMITATIONS: None. FINDINGS: LOWER CHEST: Areas of atelectasis at both bases. NON-CONTRASTED LIVER, SPLEEN, ADRENALS: Evaluation limited by lack of IV contrast. No identified sign ificant masses. PANCREAS: No masses. No peripancreatic inflammatory changes. GALLBLADDER: Surgically absent. RIGHT KIDNEY AND URETER: Low-density masses. The largest is 3 cm. High density masses. The largest is 2.1 cm. No significant calcifications. No hydronephrosis or hydroureter. LEFT KIDNEY AND URETER: Low-density masses. The largest is 9 cm. High density masses all under 1 cm . No significant calcifications. No hydronephrosis or hydroureter. AORTA AND RETROPERITONEUM: No aneurysm. No retroperitoneal masses or adenopathy. BOWEL AND PERITONEAL CAVITY: No obvious masses or inflammatory changes. No free fluid. Diverticulosi s. APPENDIX: Not visualized. PELVIS, BLADDER, AND ABDOMINAL WALL:No abnormal masses. No free fluid. Bladder normal. BONES: No significant findings. OTHER: No other significant finding. IMPRESSION: Multiple low-density in high-density lesions in both kidneys likely cysts and hemorrhagi c cysts. No hydronephrosis. COMMENT: Consider renal ultrasound. Quality ID # [id number]: Final reports with documentation of one or more dose reduction techniques (e.g., Au tomated exposure control, adjustment of the mA and/or kV according to patient size, use of iterative reconstruction technique) TECHNICAL DOCUMENTATION: JOB ID: [id number] [employer]- All Rights Reserved Reading location - IP/workstation name: [email or web address]
--- NOTE | 2017-09-25 19:33 | RADIOLOGY REPORT (SQ) ---
EXAM DESCRIPTION: KNEE RIGHT 3 VIEWS COMPLETED DATE/TIME: 09/25/2017 7:22 pm REASON FOR STUDY: Right knee pain and swelling COMPARISON: None. NUMBER OF VIEWS: Three views. TECHNIQUE: AP, lateral, and sunrise patella radiographic images acquired of the right knee. LIMITATIONS: None. FINDINGS: MINERALIZATION: Normal. BONES: No acute fracture. 3 compartment osteophytes. Lateral subluxation of the patella. JOINT: Joint effusion. Chondrocalcinosis. SOFT TISSUES: No soft tissue swelling. No radio-opaque foreign body. OTHER: No other significant finding. IMPRESSION: Osteoarthritis. Chondrocalcinosis. Lateral subluxation of patella. Joint effusion. TECHNICAL DOCUMENTATION: JOB ID: [id number] [employer]- All Rights Reserved Reading location - IP/workstation name: [email or web address]
--- NOTE | 2017-09-25 19:33 | RADIOLOGY REPORT (SQ) ---
EXAM DESCRIPTION: CHEST 2 VIEWS COMPLETED DATE/TIME: 09/25/2017 7:22 pm REASON FOR STUDY: cough; eval pna COMPARISON: 11/01/2016 NUMBER OF VIEWS: Two view. TECHNIQUE: Frontal and lateral radiographic views of the chest acquired. LIMITATIONS: None. FINDINGS: LUNGS AND PLEURA: Low lung volumes. No opacities, masses or pneumothorax. No pleural eff usion. MEDIASTINUM AND HILAR STRUCTURES: No masses. No contour abnormalities. HEART AND VASCULAR STRUCTURES: Heart normal in size and contour. No evidence for failure. BONES: No acute findings. HARDWARE: None in the chest. OTHER: No other significant finding. IMPRESSION: LOW LUNG VOLUMES. NO SIGNIFICANT RADIOGRAPHIC FINDING IN THE CHEST. TECHNICAL DOCUMENTATION: JOB ID: [id number] [employer]- All Rights Reserved Reading location - IP/workstation name: [email or web address]
[2017-09-25 19:45] LABS: HEMATOCRIT 36.1 % (37.9-51.0); HEMOGLOBIN 11.8 g/dL (13.5-17.0); MEAN CORPUSCULAR HEMOGLOBIN 30.2 pg (27.0-33.4); MEAN CORPUSCULAR HGB CONC 32.7 g/dL (32.0-36.0); MEAN CORPUSCULAR VOLUME 93 fl (80-97); PLATELET COUNT 262 10^3/uL (150-450); RED CELL DISTRIBUTION WIDTH 16.7 % (11.5-14.0)
--- NOTE | 2017-09-25 19:47 | ER Document Report ---
ED General - General Chief Complaint: Headache Stated Complaint: DIZZY,HEADACHE,CONGESTION Time Seen by Provider: 09/25/17 18:33 TRAVEL OUTSIDE OF THE [place] IN LAST 30 DAYS: No - HPI Notes: 77-year-old male who presents with multiple complaints. Patient states over the last several days he has had cough congestion and has not felt well. He has had some progressive weakness and states that sometimes his legs just feel weak and he has had trouble getting to the bathroom and sometimes urinated on himself because of this. He also describes pain in his right knee, thinks it may be related arthritis he is uncertain if he is injured himself. Sharp throbbing and severe and located in his anteromedial knee that radiates toward the back. He is uncertain if he has had any fevers he has not measured it. He has no orthopnea, No other modifying factors, no other associated symptoms, no other provocative or palliative factors. - Related Data Allergies/Adverse Reactions: TRIP Inhibitors [Trip Inhibitors] Allergy (Severe, Verified 05/18/17 11:42) Angioneurotic Edema ezetimibe [From Zetia] Adverse Reaction (Verified 05/18/17 11:42) Past Medical History - General Information source: Patient - Social History Smoking Status: Never Smoker Chew tobacco use (# tins/day): No Frequency of alcohol use: None Drug Abuse: None Family History: CVA, Hypertension Patient has suicidal ideation: No Patient has homicidal ideation: No - Past Medical History Cardiac Medical History: Reports: Hx Coronary Artery Disease - 2011 [facility], Hx Hypercholesterolemia, Hx Hypertension - meds Denies: Hx Atrial Fibrillation, Hx Congestive Heart Failure, Hx Heart Attack Pulmonary Medical History: Reports: Hx Pneumonia - 1944, Hx Sleep Apnea - cpap Denies: Hx Asthma, Hx Bronchitis, Hx COPD, Hx Tuberculosis Neurological Medical History: Reports: Hx Seizures - 3 in 2009 none since. Had veeg by [facility] Medical History: Denies: Hx Diabetes Mellitus Type 2 Renal/ Medical History: Denies: Hx End Stage Renal Disease, Hx Kidney Stones, Hx Peritoneal Dialysis GI Medical History: Reports: Hx Gastroesophageal Reflux Disease, Hx Hiatal Hernia. Denies: Hx Pancreatitis, Hx Ulcer Musculoskeltal Medical History: Reports Hx Arthritis - all over, Reports Hx Gout Psychiatric Medical History: Denies: Hx Depression Past Surgical History: Reports: Hx Cardiac Catheterization, Hx Cholecystectomy, Hx Coronary Stent - 2011, [facility]. Denies: Hx Appendectomy, Hx Bowel Surgery, Hx Open Heart Surgery, Hx Tonsillectomy - Immunizations Immunizations up to date: Yes Hx Diphtheria, Pertussis, Tetanus Vaccination: No Review of Systems - Review of Systems Notes: Review of systems as in the history of present illness, otherwise negative. Physical Exam - Vital signs Vitals: Temp Pulse Resp BP Pulse Ox 99.9 F 97 18 164/67 H 95 09/25/17 17:50 09/25/17 17:50 09/25/17 17:50 09/25/17 17:50 09/25/17 17:50 Course - Vital Signs Vital signs: Temp Pulse Resp BP Pulse Ox 99.9 F 97 22 H 166/78 H 96 09/25/17 17:50 09/25/17 17:50 09/25/17 19:25 09/25/17 19:25 09/25/17 19:25 - Laboratory Result Diagrams: 09/25/17 19:30 09/25/17 19:30 Laboratory results interpreted by me: 09/25/17 09/25/17 09/25/17 19:30 19:30 19:43 RBC 3.90 L Hgb 11.8 L Hct 36.1 L RDW 16.7 H Monocytes % (Manual) 19 H Abs Monocytes (Manual) 1.5 H BUN 28 H Creatinine 1.88 H Est GFR ( Amer) 42 L Est GFR (Non-Af Amer) 35 L Glucose 120 H Lipase 403.9 H Urine Protein 100 H Urine Urobilinogen 2.0 H Urine Ascorbic Acid 40 H Discharge - Discharge Clinical Impression: Bacteriuria URI (upper respiratory infection) Qualifiers: URI type: unspecified viral URI Qualified Code(s): J06.9 - Acute upper respiratory infection, unspecified Condition: Good Disposition: HOME, SELF-CARE Instructions: Upper Respiratory Illness ([facility]), Urinary Tract Infection ([facility]), Weakness ([facility]) Prescriptions: Cefdinir 300 mg PO Q12 #14 capsule
[2017-09-25 20:01] LABS: ABSOLUTE LYMPHOCYTES# (MANUAL) 1.8 10^3/uL (0.5-4.7); ABSOLUTE MONOCYTES # (MANUAL) 1.5 10^3/uL (0.1-1.4); ABSOLUTE NEUTROPHILS# (MANUAL) 4.6 10^3/uL (1.7-8.2); BASOPHILS % (MANUAL) 0 % (0-2); EOSINOPHILS % (MANUAL) 1 % (0-6); LYMPHOCYTES % (MANUAL) 22 % (13-45); MONOCYTES % (MANUAL) 19 % (3-13); SEGMENTED NEUTROPHILS % (MAN) 58 % (42-78); TOTAL CELLS COUNTED 100
[2017-09-25 20:02] LABS: ANISOCYTOSIS 1+; PLATELET COMMENT ADEQUATE; POIKILOCYTOSIS SLIGHT; TOXIC GRANULATION SLIGHT
[2017-09-25 20:03] LABS: ALANINE AMINOTRANSFERASE 27 U/L (21-72); ALBUMIN 4.4 g/dL (3.5-5.0); ALKALINE PHOSPHATASE 99 U/L (38-126); ANION GAP 13 (5-19); ASPARTATE AMINO TRANSFERASE 38 U/L (17-59); BILIRUBIN,DIRECT 0.4 mg/dL (0.0-0.4); BILIRUBIN,TOTAL 0.7 mg/dL (0.2-1.3); BLOOD UREA NITROGEN 28 mg/dL (7-20); CALCIUM 9.9 mg/dL (8.4-10.2); CARBON DIOXIDE 26 mmol/L (22-30); CHLORIDE 105 mmol/L (98-107); GLUCOSE 120 mg/dL (75-110); LIPASE 403.9 U/L (23-300); POTASSIUM 3.9 mmol/L (3.6-5.0); SODIUM 143.7 mmol/L (137-145); TOTAL PROTEIN 8.1 g/dL (6.3-8.2)
[2017-09-25 20:05] LABS: APPEARANCE,URINE CLOUDY; BILIRUBIN,URINE NEGATIVE (NEGATIVE); GLUCOSE, URINE NEGATIVE (NEGATIVE); KETONES,URINE NEGATIVE (NEGATIVE); LEUKOCYTE ESTERASE,URINE NEGATIVE (NEGATIVE); NITRITE,URINE NEGATIVE (NEGATIVE); PROTEIN,URINE 100 mg/dL (NEGATIVE)
[2017-09-25 20:08] LABS: COLOR,URINE DARK YELLOW
[2017-09-25] MEDS ORDERED: CEFTRIAXONE 1 GM/D5W RTU 1 GM/50 ML RTUPB IV ONE (20:36)
[2017-09-25 22:01] VITALS: BP 156/79
== END 2017-09-25 22:06 | disposition home or self-care (01) ==
LOC: ER 17:42
DX: J06.9 Acute upper respiratory infection, unspecified (principal); R82.71 Bacteriuria; R05 Cough; R53.1 Weakness; M25.561 Pain in right knee; I25.10 Atherosclerotic heart disease of native coronary artery without angina pectoris; I10 Essential (primary) hypertension; Z95.5 Presence of coronary angioplasty implant and graft; Z88.8 Allergy status to other drugs, medicaments and biological substances
CPT/HCPCS: 99285; 96365; 36415; 87040; 87086; 83690; 85025; 87077; 87088; 80053; 81001; 87186; 83605; 71046; 73562; 76380; J0696

== ENCOUNTER 2017-09-28 13:38 | Emergency (ER) | payer MEDICARE, OTHER ==
--- NOTE | 2017-09-28 14:37 | ER Document Report ---
ED Medical Screen (RME) - General Chief Complaint: Flank Pain Stated Complaint: SIDE PAIN Time Seen by Provider: 09/28/17 14:29 Notes: RAPID MEDICAL EVALUATION DISCLOSURE I have seen this patient as part of a Rapid Medical Evaluation and, if applicable, placed any initially appropriate orders. The patient will be seen and fully evaluated, including a full history and physical exam, by a provider ( in Main ED or Fast Track) when a room becomes available. 77-year-old male seen here several days ago with renal CT negative for kidney stones but did have some renal lesions here again with continued but worsening right flank pain however now it is radiating up into his right chest. He continues to have shortness of breath and cough productive of white/hernandez sputum. EXAM No appreciably significant abdominal TTP Minimal right flank and right lateral chest wall TTP MDM Chest x-ray was negative, creatinine was elevated, so noncontrast chest CT ordered CT abdomen pelvis showed large renal lesions and recommended renal ultrasound, so ultrasound ordered TRAVEL OUTSIDE OF THE [place] IN LAST 30 DAYS: No - Related Data Allergies/Adverse Reactions: TRIP Inhibitors [Trip Inhibitors] Allergy (Severe, Verified 09/28/17 13:44) Angioneurotic Edema ezetimibe [From Zetia] Adverse Reaction (Verified 09/28/17 13:44) Past Medical History - Past Medical History Cardiac Medical History: Reports: Hx Coronary Artery Disease - 2011 [facility], Hx Hypercholesterolemia, Hx Hypertension - meds Denies: Hx Atrial Fibrillation, Hx Congestive Heart Failure, Hx Heart Attack Pulmonary Medical History: Reports: Hx Pneumonia - 1944, Hx Sleep Apnea - cpap Denies: Hx Asthma, Hx Bronchitis, Hx COPD, Hx Tuberculosis Neurological Medical History: Reports: Hx Seizures - 3 in 2009 none since. Had veeg by [facility] Medical History: Denies: Hx Diabetes Mellitus Type 2 Renal/ Medical History: Denies: Hx End Stage Renal Disease, Hx Kidney Stones, Hx Peritoneal Dialysis GI Medical History: Reports: Hx Gastroesophageal Reflux Disease, Hx Hiatal Hernia. Denies: Hx Pancreatitis, Hx Ulcer Musculoskeltal Medical History: Reports Hx Arthritis - all over, Reports Hx Gout Psychiatric Medical History: Denies: Hx Depression Past Surgical History: Reports: Hx Cardiac Catheterization, Hx Cholecystectomy, Hx Coronary Stent - 2011, [facility]. Denies: Hx Appendectomy, Hx Bowel Surgery, Hx Open Heart Surgery, Hx Tonsillectomy - Immunizations Immunizations up to date: Yes Hx Diphtheria, Pertussis, Tetanus Vaccination: No Physical Exam - Vital signs Vitals: Temp Pulse Resp BP Pulse Ox 98.2 F 70 20 130/69 H 97 09/28/17 13:53 09/28/17 13:53 09/28/17 13:53 09/28/17 13:53 09/28/17 13:53 Course - Vital Signs Vital signs: Temp Pulse Resp BP Pulse Ox 98.2 F 70 20 130/69 H 97 09/28/17 13:53 09/28/17 13:53 09/28/17 13:53 09/28/17 13:53 09/28/17 13:53
--- NOTE | 2017-09-28 16:22 | ER Document Report ---
ED General - General Chief Complaint: Flank Pain Stated Complaint: SIDE PAIN Time Seen by Provider: 09/28/17 14:29 Notes: Patient is a 77-year-old male, past medical history CKD, presents with worsening right flank pain is now radiating into his right chest. He is also having mild shortness of breath and a productive cough with white hernandez sputum. He was diagnosed with a urinary tract infection 3 days ago and started on Cefdinir. His CT abdomen and pelvis without contrast showed renal cyst, but no evidence of renal stone or hydronephrosis. Looking through old blood cultures and urine cultures, he grew out pansensitive bacteria. Patient's called his primary care physician, Dr. Lanza, who sent him to the ER for further evaluation and treatment. Patient denies focal weakness, numbness, tingling, ataxia, chest pain at rest, leg swelling, hemoptysis, rash, syncope, abdominal pain, diarrhea or constipation. TRAVEL OUTSIDE OF THE [place] IN LAST 30 DAYS: No - Related Data Allergies/Adverse Reactions: TRIP Inhibitors [Trip Inhibitors] Allergy (Severe, Verified 09/28/17 13:44) Angioneurotic Edema ezetimibe [From Zetia] Adverse Reaction (Verified 09/28/17 13:44) Past Medical History - General Information source: Patient - Social History Smoking Status: Unknown if Ever Smoked Chew tobacco use (# tins/day): No Frequency of alcohol use: None Drug Abuse: None Family History: CVA, Hypertension Patient has suicidal ideation: No Patient has homicidal ideation: No - Past Medical History Cardiac Medical History: Reports: Hx Coronary Artery Disease - 2011 [facility], Hx Hypercholesterolemia, Hx Hypertension - meds Denies: Hx Atrial Fibrillation, Hx Congestive Heart Failure, Hx Heart Attack Pulmonary Medical History: Reports: Hx Pneumonia - 1944, Hx Sleep Apnea - cpap Denies: Hx Asthma, Hx Bronchitis, Hx COPD, Hx Tuberculosis Neurological Medical History: Reports: Hx Seizures - 3 in 2009 none since. Had veeg by [facility] Endocrine Medical History: Denies: Hx Diabetes Mellitus Type 2 Renal/ Medical History: Denies: Hx End Stage Renal Disease, Hx Kidney Stones, Hx Peritoneal Dialysis GI Medical History: Reports: Hx Gastroesophageal Reflux Disease, Hx Hiatal Hernia. Denies: Hx Pancreatitis, Hx Ulcer Musculoskeltal Medical History: Reports Hx Arthritis - all over, Reports Hx Gout Psychiatric Medical History: Denies: Hx Depression Past Surgical History: Reports: Hx Cardiac Catheterization, Hx Cholecystectomy, Hx Coronary Stent - 2011, [facility]. Denies: Hx Appendectomy, Hx Bowel Surgery, Hx Open Heart Surgery, Hx Tonsillectomy - Immunizations Immunizations up to date: Yes Hx Diphtheria, Pertussis, Tetanus Vaccination: No Review of Systems - Review of Systems Notes: REVIEW OF SYSTEMS: CONSTITUTIONAL: -fevers, -chills EENT: -eye pain, -difficulty swallowing, -nasal congestion CARDIOVASCULAR: -chest pain, -syncope. RESPIRATORY: -cough, -SOB GASTROINTESTINAL: -abdominal pain, -nausea, -vomiting, -diarrhea GENITOURINARY: -dysuria, -hematuria MUSCULOSKELETAL: +back pain, -neck pain SKIN: -rash or skin lesions. HEMATOLOGIC: -easy bruising or bleeding. LYMPHATIC: -swollen, enlarged glands. NEUROLOGICAL: -altered mental status or loss of consciousness, -headache, - neurologic symptoms PSYCHIATRIC: -anxiety, -depression. ALL OTHER SYSTEMS REVIEWED AND NEGATIVE. Physical Exam - Vital signs Vitals: Temp Pulse Resp BP Pulse Ox 98.2 F 70 20 130/69 H 97 09/28/17 13:53 09/28/17 13:53 09/28/17 13:53 09/28/17 13:53 09/28/17 13:53 - Notes Notes: PHYSICAL EXAMINATION: GENERAL: Well-appearing, well-nourished and in no acute distress. HEAD: Atraumatic, normocephalic. EYES: Pupils equal round and reactive to light, extraocular movements intact, sclera anicteric, conjunctiva are normal. ENT: nares patent, oropharynx clear without exudates. Moist mucous membranes. NECK: Normal range of motion, supple without lymphadenopathy LUNGS: Breath sounds clear to auscultation bilaterally and equal. No wheezes rales or rhonchi. HEART: Regular rate and rhythm without murmurs ABDOMEN: Soft, nontender, normoactive bowel sounds. No guarding, no rebound. No masses appreciated. EXTREMITIES: Normal range of motion, no pitting or edema. No cyanosis. BACK: Tenderness over right CVA and lower back, no midline tenderness. NEUROLOGICAL: Cranial nerves grossly intact. Normal speech, normal gait. Normal sensory and motor exams. PSYCH: Normal mood, normal affect. SKIN: Warm, Dry, normal turgor, no rashes or lesions noted. Course - Re-evaluation Re-evalutation: Patient appears well. His pain is worse when he moves and he is having tenderness over his right flank and right lower back. His urinalysis no longer shows any evidence of a UTI and his blood work is unremarkable. Creatinine is at baseline. CT chest does not show evidence of pneumonia and his renal ultrasound shows cortical kidney disease. Strong distal pulses and he has 5/5 strength in bilateral lower extremities. No evidence of AAA or aortic dissection on exam. He had a CT abdomen pelvis performed 2 days ago, which did not reveal kidney stones. No life-threatening etiology found at this time and instructed him to follow-up with his primary care physician in 2 days for recheck of his symptoms. Given very strict return precautions and he understands. 09/28/17 19:20 Placed call to his PMD, Dr. Lanza, to speak to him about his results, since the talked to him earlier in the day. Left message, but unable to get in touch. - Vital Signs Vital signs: Temp Pulse Resp BP Pulse Ox 98.6 F 67 16 152/72 H 97 09/28/17 18:59 09/28/17 18:59 09/28/17 18:59 09/28/17 18:59 09/28/17 18:59 - Laboratory Result Diagrams: 09/28/17 16:46 09/28/17 18:15 Laboratory results interpreted by me: 09/28/17 09/28/17 09/28/17 16:46 16:57 18:15 RBC 3.51 L Hgb 10.6 L Hct 32.2 L RDW 16.9 H BUN 48 H Creatinine 1.87 H Est GFR ( Amer) 42 L Est GFR (Non-Af Amer) 35 L Urine Protein 30 H Urine Ascorbic Acid 40 H - Diagnostic Test Radiology reviewed: Image reviewed, Reports reviewed Radiology results interpreted by me: Renal US: Limited evaluation due to patient body habitus. Findings most consistent with multiple cortical cysts the kidneys. CT Chest: Evidence of bibasilar subpleural linear interstitial changes which could represent discoid atelectasis or scarring. Discharge - Discharge Clinical Impression: Right flank pain Condition: Stable Disposition: HOME, SELF-CARE Additional Instructions: Flank Pain We weren't able to prove an exact cause for your flank pain. Pain in the flank can be caused by a muscle strain or spasm. Sometimes a kidney stone causes pain, but can't be found on our tests. Infection in the kidney should be evident on a urine test. Early shingles can occasionally cause flank pain, without the rash that proves the diagnosis. On rare occasions, disease of the pancreas, aorta, spleen, or colon can create pain in the flank. At this time, there's no evidence of a dangerous condition, and it seems safe for you to be at home. If the pain goes away and does not come back, no further testing will be needed. If pain persists, or becomes more severe, we may need to repeat some tests or order additional new testing. Blood in the urine, urgency to urinate frequently, and pain that radiates to the groin can indicate a kidney stone. Fever may mean that the pain is due to infection, either of the kidney or the colon (diverticulitis). If your pain is early shingles, you should develop an eruption of blisters in the painful area within a few days. Call the doctor or return if you have pain that is spreading or becoming more severe, pain that does not resolve with time, fever, or any other new symptoms. Prescriptions: Lidocaine [Lidoderm 5% (700 mg) Transdermal Patch] 1 patch TP DAILY #10 adh..patch Tramadol HCl [Ultram] 50 mg PO Q8H PRN #10 tablet PRN Reason: Forms: Elevated Blood Pressure Referrals: MARC LANZA MD [Primary Care Provider] - Follow up as needed
--- NOTE | 2017-09-28 16:26 | RADIOLOGY REPORT (SQ) ---
EXAM DESCRIPTION: CT CHEST WITHOUT COMPLETED DATE/TIME: 09/28/2017 4:08 pm REASON FOR STUDY: R chest pain w neg CXR COMPARISON: None. TECHNIQUE: CT scan performed of the chest without intravenous contrast. Images reviewed with lung, soft tissue and bone windows. Reconstructed coronal and sagittal MPR images reviewed. All images st ored on PACS. All CT scanners at this facility use dose modulation, iterative reconstruction, and/or weight based d osing when appropriate to reduce radiation dose to as low as reasonably achievable (ALARA). [facility]: Dose Right [facility]: CareDose [facility]: Dose Right [facility]: Teradose 4D [facility]: Smart [employer] RADIATION DOSE: CT Rad equipment meets quality standard of care and radiation dose reduction techniq ues were employed. CTDIvol: 19.7 mGy. DLP: 711 mGy-cm. mGy. LIMITATIONS: No technical limitations. FINDINGS: LUNGS AND PLEURA: Linear subpleural densities within the lingula, right middle lobe, and b oth lower lobes. Findings could represent discoid atelectasis or scarring. HILAR AND MEDIASTINAL STRUCTURES: No identified masses or abnormal nodes. No obvious aneurysm. HEART AND VASCULAR STRUCTURES: Atherosclerotic coronary disease. UPPER ABDOMEN: Fatty infiltration the liver. No abnormality of the spleen. No abnormality in the ad renals. Status post cholecystectomy. 6 cm cortical cyst upper pole left kidney. 3.3 x 3.2 cm corti joe cyst upper pole right kidney. Adjacent cortical cyst measuring 1.2 cm. THYROID AND OTHER SOFT TISSUES: No abnormality seen. BONES: No significant finding. HARDWARE: None in the chest. OTHER: There is evidence of fluid layering within the posterior trachea above the tracheal bifurcatio n which could represent endotracheal secretions. Changes in gynecomastia. IMPRESSION: Evidence of bibasilar subpleural linear interstitial changes which could represent disco id atelectasis or scarring. TECHNICAL DOCUMENTATION: JOB ID: [id number] Quality ID # [id number]: Final reports with documentation of one or more dose reduction techniques (e.g., Au tomated exposure control, adjustment of the mA and/or kV according to patient size, use of iterative reconstruction technique) 2010 [employer]- All Rights Reserved Reading location - IP/workstation name: [email or web address]
[2017-09-28 17:02] LABS: ABSOLUTE BASOPHILS # (AUTO) 0.1 10^3/uL (0.0-0.2); ABSOLUTE EOSINOPHILS # (AUTO) 0.2 10^3/uL (0.0-0.6); ABSOLUTE LYMPHOCYTES (AUTO) 1.6 10^3/uL (0.5-4.7); ABSOLUTE NEUT (AUTO) 6.4 10^3/uL (1.7-8.2); BASOPHILS % (AUTO) 1.2 % (0-2); EOSINOPHILS % (AUTO) 1.7 % (0-6); HEMATOCRIT 32.2 % (37.9-51.0); HEMOGLOBIN 10.6 g/dL (13.5-17.0); LYMPHOCYTES % (AUTO) 17.5 % (13-45); MEAN CORPUSCULAR HEMOGLOBIN 30.4 pg (27.0-33.4); MEAN CORPUSCULAR VOLUME 92 fl (80-97); MONOCYTES % (AUTO) 10.3 % (3-13); PLATELET COUNT 323 10^3/uL (150-450); RED BLOOD COUNT 3.51 10^6/uL (4.35-5.55); RED CELL DISTRIBUTION WIDTH 16.9 % (11.5-14.0); SEGMENTED NEUTROPHILS % (AUTO) 69.3 % (42-78); TOTAL CELLS COUNTED % (AUTO) 100 %; WHITE BLOOD COUNT 9.2 10^3/uL (4.0-10.5)
[2017-09-28 17:12] LABS: APPEARANCE,URINE CLOUDY; BILIRUBIN,URINE NEGATIVE (NEGATIVE); COLOR,URINE YELLOW; GLUCOSE, URINE NEGATIVE (NEGATIVE); KETONES,URINE NEGATIVE (NEGATIVE); LEUKOCYTE ESTERASE,URINE NEGATIVE (NEGATIVE); NITRITE,URINE NEGATIVE (NEGATIVE); PROTEIN,URINE 30 mg/dL (NEGATIVE); URINE SPECIFIC GRAVITY 1.015; UROBILINOGEN,URINE NEGATIVE mg/dL (<2.0)
--- NOTE | 2017-09-28 17:58 | RADIOLOGY REPORT (SQ) ---
EXAM DESCRIPTION: U/S RETROPERITON (RENAL/AORTA) COMPLETED DATE/TIME: 09/28/2017 4:32 pm REASON FOR STUDY: eval bilateral renal lesions seen on CT COMPARISON: CT of chest without contrast 09/28/2017. Abdominal ultrasound 06/24/2016. TECHNIQUE: Dynamic and static grayscale images acquired of the kidneys and bladder and recorded on P ACS. Additional selected color Doppler and spectral images recorded. LIMITATIONS: Limitation secondary to patient body habitus. FINDINGS: RIGHT KIDNEY: The right kidney measures 12.7 x 7 x 6.1 cm. In the upper pole of the right kidney there is evidence of a 4.2 x 3.5 x 4.3 cm prominent cortical cyst as seen on prior CT. Addit ional smaller cortical cysts are noted in the lower pole. LEFT KIDNEY: The left kidney measures 11.6 x 6 x 6.7 cm. In the upper pole of the left kidney there are multiple cortical cyst. BLADDER: No masses. OTHER FINDINGS: No other significant finding. IMPRESSION: Limited evaluation due to patient body habitus. Findings most consistent with multiple cortical cysts the kidneys. TECHNICAL DOCUMENTATION: JOB ID: [id number] [employer]- All Rights Reserved Reading location - IP/workstation name: [email or web address]
[2017-09-28 18:43] LABS: ALANINE AMINOTRANSFERASE 39 U/L (21-72); ALBUMIN 3.7 g/dL (3.5-5.0); ALKALINE PHOSPHATASE 93 U/L (38-126); ANION GAP 14 (5-19); ASPARTATE AMINO TRANSFERASE 47 U/L (17-59); BILIRUBIN,DIRECT 0.4 mg/dL (0.0-0.4); BILIRUBIN,TOTAL 0.4 mg/dL (0.2-1.3); BLOOD UREA NITROGEN 48 mg/dL (7-20); CALCIUM 9.4 mg/dL (8.4-10.2); CARBON DIOXIDE 23 mmol/L (22-30); CHLORIDE 107 mmol/L (98-107); GLUCOSE 90 mg/dL (75-110); SODIUM 144.4 mmol/L (137-145); TOTAL PROTEIN 6.9 g/dL (6.3-8.2)
[2017-09-28 19:01] VITALS: BP 152/72
[2017-09-28] MEDS ORDERED: HYDROCODONE/ACETAMINOPHEN 5-325 MG TABLET PO ONE (19:21)
[2017-09-28] MEDS ORDERED: LIDOCAINE 5% (700 MG) TRANSDERMAL ADH..PATCH TP ONE (19:21)
--- NOTE | 2017-09-28 23:25 | EKG REPORT ---
SEVERITY:- OTHERWISE NORMAL ECG - SINUS RHYTHM PACS : Confirmed by: Satinder Banks MD 28-Sep-2017 23:24:28
== END 2017-09-28 19:40 | disposition home or self-care (01) ==
LOC: ER 13:38
DX: R10.9 Unspecified abdominal pain (principal); M54.5 Low back pain; R06.02 Shortness of breath; R05 Cough; I25.10 Atherosclerotic heart disease of native coronary artery without angina pectoris; E78.00 Pure hypercholesterolemia, unspecified; I10 Essential (primary) hypertension; Z90.49 Acquired absence of other specified parts of digestive tract
CPT/HCPCS: 93005; 99284; 36415; 87040; 87086; 85025; 80053; 81001; 84484; 76770; 71250; 93010; A9270

== ENCOUNTER → 2017-12-24 | Outpatient (CLI) | payer MEDICARE, OTHER ==
[2017-12-24 13:56] LABS: APPEARANCE,URINE CLEAR; BILIRUBIN,URINE NEGATIVE (NEGATIVE); COLOR,URINE YELLOW; GLUCOSE, URINE NEGATIVE (NEGATIVE); KETONES,URINE NEGATIVE (NEGATIVE); LEUKOCYTE ESTERASE,URINE SMALL (NEGATIVE); NITRITE,URINE NEGATIVE (NEGATIVE); PROTEIN,URINE NEGATIVE (NEGATIVE); URINE SPECIFIC GRAVITY 1.016
[2017-12-24 13:59] LABS: ABSOLUTE EOSINOPHILS # (AUTO) 0.1 10^3/uL (0.0-0.6); ABSOLUTE LYMPHOCYTES (AUTO) 2.1 10^3/uL (0.5-4.7); ABSOLUTE MONOCYTES (AUTO) 0.5 10^3/uL (0.1-1.4); ABSOLUTE NEUT (AUTO) 3.2 10^3/uL (1.7-8.2); BASOPHILS % (AUTO) 0.8 % (0-2); EOSINOPHILS % (AUTO) 1.6 % (0-6); HEMATOCRIT 32.9 % (37.9-51.0); HEMOGLOBIN 10.3 g/dL (13.5-17.0); LYMPHOCYTES % (AUTO) 35.5 % (13-45); MEAN CORPUSCULAR HGB CONC 31.4 g/dL (32.0-36.0); MEAN CORPUSCULAR VOLUME 92 fl (80-97); MONOCYTES % (AUTO) 7.7 % (3-13); PLATELET COUNT 230 10^3/uL (150-450); RED BLOOD COUNT 3.57 10^6/uL (4.35-5.55); RED CELL DISTRIBUTION WIDTH 18.1 % (11.5-14.0); SEGMENTED NEUTROPHILS % (AUTO) 54.4 % (42-78); TOTAL CELLS COUNTED % (AUTO) 100 %; WHITE BLOOD COUNT 5.9 10^3/uL (4.0-10.5)
[2017-12-24 14:15] LABS: ANION GAP 13 (5-19); BLOOD UREA NITROGEN 28 mg/dL (7-20); CALCIUM 9.1 mg/dL (8.4-10.2); CARBON DIOXIDE 27 mmol/L (22-30); CHLORIDE 103 mmol/L (98-107); GLUCOSE 109 mg/dL (75-110); POTASSIUM 4.3 mmol/L (3.6-5.0); SODIUM 143.4 mmol/L (137-145)
--- NOTE | 2017-12-24 14:38 | RADIOLOGY REPORT (SQ) ---
EXAM DESCRIPTION: CHEST PA/LATERAL COMPLETED DATE/TIME: 12/24/2017 12:59 pm REASON FOR STUDY: PRE-OP Z01.818 ENCOUNTER FOR OTHER PREPROCEDURAL EXAMINATION COMPARISON: 09/25/2017 NUMBER OF VIEWS: Two view. TECHNIQUE: Frontal and lateral radiographic views of the chest acquired. LIMITATIONS: None. FINDINGS: LUNGS AND PLEURA: Low lung volumes. No opacities, masses or pneumothorax. No pleural eff usion. MEDIASTINUM AND HILAR STRUCTURES: No masses. No contour abnormalities. HEART AND VASCULAR STRUCTURES: Heart normal in size and contour. No evidence for failure. BONES: No acute findings. HARDWARE: None in the chest. OTHER: No other significant finding. IMPRESSION: LOW LUNG VOLUMES. NO SIGNIFICANT RADIOGRAPHIC FINDING IN THE CHEST. TECHNICAL DOCUMENTATION: JOB ID: [id number] [employer]- All Rights Reserved Reading location - IP/workstation name: [email or web address]
--- NOTE | 2017-12-24 22:11 | EKG REPORT ---
SEVERITY:- OTHERWISE NORMAL ECG - SINUS RHYTHM LOW VOLTAGE IN FRONTAL LEADS : Confirmed by: Opal Wren 24-Dec-2017 22:11:02
== END ==
LOC: OD 12:18
PROVIDERS: ATTEND Orthopaedic Surgery
DX: Z01.810 Encounter for preprocedural cardiovascular examination (principal); Z01.812 Encounter for preprocedural laboratory examination; Z01.818 Encounter for other preprocedural examination
CPT/HCPCS: 36415; 71046; 80048; 81001; 85025; 93005; 93010

== ENCOUNTER → 2018-01-13 | Outpatient (CLI) | payer MEDICARE, OTHER ==
[2018-01-13 16:59] LABS: INTERNATIONAL RATION (INR) 0.95; PROTHROMBIN TIME 13.1 SEC (11.4-15.4)
[2018-01-13 17:00] LABS: PARTIAL THROMBOPLASTIN TIME 40.3 SEC (23.5-35.8)
[2018-01-13 17:14] LABS: POTASSIUM 4.4 mmol/L (3.6-5.0); SODIUM 142.9 mmol/L (137-145)
== END ==
LOC: OD 15:45
PROVIDERS: ATTEND Internal Medicine
DX: I25.118 Atherosclerotic heart disease of native coronary artery with other forms of angina pectoris (principal); G45.9 Transient cerebral ischemic attack, unspecified; R07.2 Precordial pain; R06.02 Shortness of breath; E78.5 Hyperlipidemia, unspecified; I10 Essential (primary) hypertension; E66.8 Other obesity; R55 Syncope and collapse; G47.30 Sleep apnea, unspecified; R09.89 Other specified symptoms and signs involving the circulatory and respiratory systems; K21.9 Gastro-esophageal reflux disease without esophagitis; Z98.61 Coronary angioplasty status; Z79.899 Other long term (current) drug therapy
CPT/HCPCS: 36415; 80051; 82947; 83735; 84520; 85610; 85730

== ENCOUNTER 2018-03-24 11:33 | Observation (INO) | payer MEDICARE, OTHER ==
[2018-03-24 12:03] LABS: ABSOLUTE BASOPHILS # (AUTO) 0.1 10^3/uL (0.0-0.2); ABSOLUTE EOSINOPHILS # (AUTO) 0.1 10^3/uL (0.0-0.6); ABSOLUTE LYMPHOCYTES (AUTO) 1.6 10^3/uL (0.5-4.7); ABSOLUTE MONOCYTES (AUTO) 0.3 10^3/uL (0.1-1.4); ABSOLUTE NEUT (AUTO) 3.5 10^3/uL (1.7-8.2); BASOPHILS % (AUTO) 1.4 % (0-2); EOSINOPHILS % (AUTO) 1.3 % (0-6); HEMATOCRIT 35.5 % (37.9-51.0); HEMOGLOBIN 11.6 g/dL (13.5-17.0); LYMPHOCYTES % (AUTO) 28.9 % (13-45); MEAN CORPUSCULAR HEMOGLOBIN 30.5 pg (27.0-33.4); MEAN CORPUSCULAR HGB CONC 32.7 g/dL (32.0-36.0); MEAN CORPUSCULAR VOLUME 93 fl (80-97); MONOCYTES % (AUTO) 5.6 % (3-13); PLATELET COUNT 189 10^3/uL (150-450); RED CELL DISTRIBUTION WIDTH 17.9 % (11.5-14.0); SEGMENTED NEUTROPHILS % (AUTO) 62.8 % (42-78); TOTAL CELLS COUNTED % (AUTO) 100 %; WHITE BLOOD COUNT 5.6 10^3/uL (4.0-10.5)
--- NOTE | 2018-03-24 12:21 | ER Document Report ---
ED General - General Chief Complaint: syncopal Stated Complaint: DIZZINESS Time Seen by Provider: 03/24/18 12:03 TRAVEL OUTSIDE OF THE [place] IN LAST 30 DAYS: No - HPI Notes: Patient is a 77-year-old male that presents to the emergency department for chief complaint of loss of consciousness. Patient presents the emergency room for syncope or seizure. He was sitting in a chair at home and began to feel very lightheaded. Family reports he became diaphoretic and was dripping in sweat. Patient then became unconscious and was shaking all over. Family states he struck himself out of the chair onto the floor. The shaking lasted for only a few seconds and resolved once he was on the floor. They state he did hit his head on the floor on the way down. When patient woke up he had no recollection of the event. Family denies any postictal type symptoms. He was incontinent of urine. He has had similar episodes in the past twice and was seen by a neurologist and told that he may have had a seizure. He was never recommended to start antiepileptic medications. His last episode was 1 year ago. Currently patient states he feels tired but better. He denied any prodromal chest pain, shortness of breath , palpitations. He did feel nauseated prior to the event. He denies history of syncope in the past Past Medical History: Seizure, hypertension, hyperlipidemia, renal cysts Past Surgical History: Cholecystectomy Social History: Denies drugs alcohol and tobacco Family History: Reviewed and noncontributory for presenting illness Allergies: Reviewed, see documented allergy list. REVIEW OF SYSTEMS: CONSTITUTIONAL : No fever No chills No diaphoresis No recent illness EENT: No vision changes No congestion No sore throat CARDIOVASCULAR: No chest pain No palpitations RESPIRATORY: No shortness of breath No cough No difficulty breathing GASTROINTESTINAL: No abdominal pain No nausea No vomiting No diarrhea GENITOURINARY: No dysuria No hematuria No difficulty urinating MUSCULOSKELETAL: No back pain No leg pain No arm pain SKIN: No rashes No lesions LYMPHATIC: No swollen, enlarged glands. NEUROLOGICAL: Seizure No lightheadedness No headache No weakness No paresthesias PSYCHIATRIC: No anxiety No depression PHYSICAL EXAMINATION: Vital signs reviewed, nursing noted reviewed. GENERAL: Well-appearing, well-nourished and in no acute distress. HEAD: Atraumatic, normocephalic. EYES: Eyes appear normal, extraocular movements intact, sclera anicteric, conjunctiva are normal. ENT: nares patent, oropharynx clear without exudates. Moist mucous membranes. NECK: Normal range of motion, supple without lymphadenopathy LUNGS: Breath sounds clear to auscultation bilaterally and equal. No wheezes rales or rhonchi. HEART: Regular rate and rhythm without murmurs ABDOMEN: Soft, nontender, normoactive bowel sounds. No rebound, guarding, or rigidity. No masses appreciated. EXTREMITIES: Nontender, good range of motion, no pitting or edema. NEUROLOGICAL: No focal neurological deficits. Moves all extremities spontaneously Motor and sensory grossly intact on exam. PSYCH: Normal mood, normal affect. SKIN: Warm, Dry, normal turgor, no rashes or lesions noted on exposed skin - Related Data Allergies/Adverse Reactions: TRIP Inhibitors [Trip Inhibitors] Allergy (Severe, Verified 12/23/17 10:43) Angioneurotic Edema ezetimibe [From Zetia] Adverse Reaction (Verified 12/23/17 10:43) Past Medical History - Social History Smoking Status: Never Smoker Family History: CVA, Hypertension - Past Medical History Cardiac Medical History: Reports: Hx Coronary Artery Disease - 2011 [facility], Hx Hypercholesterolemia, Hx Hypertension - meds Denies: Hx Atrial Fibrillation, Hx Congestive Heart Failure, Hx Heart Attack , Hx Peripheral Vascular Disease, Hx Pulmonary Embolism, Hx Heart Murmur Pulmonary Medical History: Reports: Hx Pneumonia - 1944, Hx Sleep Apnea - cpap doesn't use Denies: Hx Asthma, Hx Bronchitis, Hx COPD, Hx Respiratory Failure, Hx Tuberculosis Neurological Medical History: Reports: Hx Seizures - 3 in 2009 none since. Had eeg by [facility]. Denies: Hx Cerebrovascular Accident Endocrine Medical History: Denies: Hx Diabetes Mellitus Type 2, Hx Hyperthyroidism, Hx Hypothyroidism Renal/ Medical History: Denies: Hx Benign Prostatic Hyperplasia, Hx End Stage Renal Disease, Hx Kidney Stones, Hx Peritoneal Dialysis Malignancy Medical History: Denies Hx Leukemia, Denies Hx Lung Cancer GI Medical History: Reports: Hx Gastroesophageal Reflux Disease, Hx Hiatal Hernia. Denies: Hx Crohn's Disease, Hx Irritable Bowel, Hx Liver Failure, Hx Pancreatitis, Hx Ulcer Musculoskeletal Medical History: Reports Hx Arthritis - all over, Denies Hx Fibromyalgia, Reports Hx Gout, Denies Hx Multiple Sclerosis, Denies Hx Muscular Dystrophy Psychiatric Medical History: Denies: Hx Bipolar Disorder, Hx Dementia, Hx Depression, Hx Post Traumatic Stress Disorder, Hx Schizophrenia Traumatic Medical History: Denies: Hx Fractures Infectious Medical History: Denies: Hx HIV Past Surgical History: Reports: Hx Cardiac Catheterization, Hx Cholecystectomy, Hx Coronary Stent - 2011, [facility]. Denies: Hx Appendectomy, Hx Bowel Surgery, Hx Colostomy, Hx Coronary Artery Bypass Graft, Hx Gastric Bypass Surgery, Hx Herniorrhaphy, Hx Open Heart Surgery, Hx Pacemaker, Hx Tonsillectomy - Immunizations Immunizations up to date: Yes Hx Diphtheria, Pertussis, Tetanus Vaccination: No Review of Systems - Review of Systems Notes: Dictated Physical Exam - Vital signs Vitals: Resp Pulse Ox 21 H 95 03/24/18 11:48 03/24/18 11:48 - Notes Notes: Dictated Course - Re-evaluation Re-evalutation: 03/24/18 12:17 Vitals reviewed. Nursing notes reviewed. EKG shows a sinus arrhythmia with no signs of ischemia. Seizure precautions were started. 03/24/18 14:26 Patient's lab work is unremarkable. He has a normal troponin. There is no electrolyte derangements. His CK and CK-MB are also normal. He has had no cardiac dysrhythmia while on telemetry. CT scan of the brain shows no acute process including intracranial hemorrhage. Patient symptoms are concerning for possible syncope versus seizure. He has no formal seizure diagnosis and is not on any antiepileptic medications although he has had 2 previous events that presented similarly. My concern is for underlying dysrhythmia as a cause of his loss of consciousness. Patient will be admitted to the hospital for telemetry monitoring and further cardiac evaluation. Case discussed with admitting physician Dr. Trevino. Patient and family in agreement with this plan. Laboratory 03/24/18 03/24/18 03/24/18 11:47 11:47 11:47 WBC 5.6 RBC 3.80 L Hgb 11.6 L Hct 35.5 L MCV 93 MCH 30.5 MCHC 32.7 RDW 17.9 H Plt Count 189 Seg Neutrophils % 62.8 Lymphocytes % 28.9 Monocytes % 5.6 Eosinophils % 1.3 Basophils % 1.4 Absolute Neutrophils 3.5 Absolute Lymphocytes 1.6 Absolute Monocytes 0.3 Absolute Eosinophils 0.1 Absolute Basophils 0.1 Sodium 143.5 Potassium 4.0 Chloride 107 Carbon Dioxide 23 Anion Gap 14 BUN 25 H Creatinine 1.12 Est GFR ( Amer) > 60 Est GFR (Non-Af Amer) > 60 Glucose 130 H Calcium 9.2 Total Bilirubin 0.5 Direct Bilirubin 0.3 Neonat Total Bilirubin Not Reportable Neonat Direct Bilirubin Not Reportable Neonat Indirect Bili Not Reportable AST 23 ALT 17 L Alkaline Phosphatase 120 Creatine Kinase 155 CK-MB (CK-2) 2.03 Troponin I < 0.012 Total Protein 6.[address] 03/24/18 12:14 IMPRESSION: NORMAL BRAIN CT WITHOUT CONTRAST. EVIDENCE OF ACUTE STROKE: NO. - Vital Signs Vital signs: Temp Pulse Resp BP Pulse Ox 82 15 136/80 H 96 03/24/18 12:09 03/24/18 14:00 03/24/18 12:09 03/24/18 14:00 - Laboratory Result Diagrams: 03/24/18 11:47 03/24/18 11:47 Laboratory results interpreted by me: 03/24/18 03/24/18 11:47 11:47 RBC 3.80 L Hgb 11.6 L Hct 35.5 L RDW 17.9 H BUN 25 H Glucose 130 H ALT 17 L - EKG Interpretation by Me Additional EKG results interpreted by me: 03/24/18 12:18 Interpreted by myself [id number]: Sinus arrhythmia, rate 75, normal axis, no ectopy, no ST elevation, low voltage Discharge - Discharge Clinical Impression: Syncope Qualifiers: Syncope type: unspecified Qualified Code(s): R55 - Syncope and collapse Condition: Stable Disposition: ADMITTED OBSERVATION Admitting Provider: Hospitalist Unit Admitted: Telemetry Referrals: LORENZO KHAN MD [Primary Care Provider] - Follow up as needed
[2018-03-24 12:27] LABS: ALANINE AMINOTRANSFERASE 17 U/L (21-72); ALBUMIN 3.8 g/dL (3.5-5.0); ALKALINE PHOSPHATASE 120 U/L (38-126); ANION GAP 14 (5-19); ASPARTATE AMINO TRANSFERASE 23 U/L (17-59); BILIRUBIN,DIRECT 0.3 mg/dL (0.0-0.4); BILIRUBIN,TOTAL 0.5 mg/dL (0.2-1.3); BLOOD UREA NITROGEN 25 mg/dL (7-20); CALCIUM 9.2 mg/dL (8.4-10.2); CARBON DIOXIDE 23 mmol/L (22-30); CHLORIDE 107 mmol/L (98-107); CREATINE KINASE 155 U/L (55-170); GLUCOSE 130 mg/dL (75-110); SODIUM 143.5 mmol/L (137-145); TOTAL PROTEIN 6.7 g/dL (6.3-8.2)
[2018-03-24 12:39] LABS: CREATINE KINASE MB 2.03 ng/mL (<4.55)
[2018-03-24 12:40] LABS: TROPONIN I < 0.012 ng/mL
--- NOTE | 2018-03-24 13:18 | RADIOLOGY REPORT (SQ) ---
EXAM DESCRIPTION: CT HEAD WITHOUT COMPLETED DATE/TIME: 03/24/2018 1:02 pm REASON FOR STUDY: head injury COMPARISON: 07/26/2017 TECHNIQUE: Axial images acquired through the brain without intravenous contrast. Images reviewed wi th bone, brain and subdural windows. Additional sagittal and coronal reconstructions were generated. Images stored on PACS. All CT scanners at this facility use dose modulation, iterative reconstruction, and/or weight based d osing when appropriate to reduce radiation dose to as low as reasonably achievable (ALARA). [facility]: Dose Right [facility]: CareDose [facility]: Dose Right [facility]: Teradose 4D [facility]: [employer] RADIATION DOSE: CT Rad equipment meets quality standard of care and radiation dose reduction techniq ues were employed. CTDIvol: 53.2 mGy. DLP: 991 mGy-cm. mGy. LIMITATIONS: None. FINDINGS: VENTRICLES: Normal size and contour. CEREBRUM: No masses. No hemorrhage. No midline shift. No evidence for acute infarction. Normal gra y/white matter differentiation. No areas of low density in the white matter. CEREBELLUM: No masses. No hemorrhage. No alteration of density. No evidence for acute infarction. EXTRAAXIAL SPACES: No fluid collections. No masses. ORBITS AND GLOBE: No intra- or extraconal masses. Normal contour of globe without masses. CALVARIUM: No fracture. PARANASAL SINUSES: No fluid or mucosal thickening. SOFT TISSUES: No mass or hematoma. OTHER: No other significant finding. IMPRESSION: NORMAL BRAIN CT WITHOUT CONTRAST. EVIDENCE OF ACUTE STROKE: NO. COMMENT: Quality ID # [id number]: Final reports with documentation of one or more dose reduction techniques (e.g., Automated exposure control, adjustment of the mA and/or kV according to patient size, use of iterative reconstruction technique) TECHNICAL DOCUMENTATION: JOB ID: [id number] [employer]- All Rights Reserved Reading location - IP/workstation name: [email or web address]
[2018-03-24 15:20] LABS: APPEARANCE,URINE CLEAR; BILIRUBIN,URINE NEGATIVE (NEGATIVE); COLOR,URINE STRAW; GLUCOSE, URINE NEGATIVE (NEGATIVE); KETONES,URINE NEGATIVE (NEGATIVE); LEUKOCYTE ESTERASE,URINE SMALL (NEGATIVE); NITRITE,URINE NEGATIVE (NEGATIVE); PROTEIN,URINE NEGATIVE (NEGATIVE); URINE SPECIFIC GRAVITY 1.009; UROBILINOGEN,URINE NEGATIVE mg/dL (<2.0)
[2018-03-24] MEDS ORDERED: NITROGLYCERIN 0.4 MG/TAB 25 TAB/BOTTLE SL PRN (15:46)
--- NOTE | 2018-03-24 16:06 | PDOC H&P ---
History of Present Illness Admission Date/PCP: 03/24/18 14:39 LORENZO KHAN MD History of Present Illness: ZAIRA GOOD is a 77 year old male came to the ER with complaints of loss of consciousness morning. Patient and family giving history at that patient is not feeling well for the last couple of days he has severe diarrhea last Friday and is not feeling well since yesterday he woke up this morning and 80s per request and started watching TV all of a sudden he felt like stomach is rolling felt dizzy he put his head down and try to get up to go to the bathroom and asked by the family passed out for 3-4 seconds and during this episode he passed a urine and the family noticed sweating and shaking during this a short episode of loss of consciousness. She has these previous episodes before last episode was 1 year ago at that time he was found to have a UTI and he was in the hospital for a couple of days patient denies any history of fever chills and Reiger's complaints of shortness of breath from today and headaches from this morning denies any chest pains denies any cough or cold denies any problems with urination denies any musculoskeletal pain denies any rashes complaining of clear runny nose. Past Medical History Cardiac Medical History: Reports: Coronary Artery Disease - 2011 stend Lad, Hyperlipidema, Hypertension - meds , Other - Patient has history of gout Denies: Atrial Fibrillation, Congestive Heart Failure, Myocardial Infarction , Peripheral Vascular Disease, Pulmonary Embolism, Heart Murmur Pulmonary Medical History: Reports: Pneumonia - 1944, Sleep Apnea - cpap doesn' t use Denies: Asthma, Bronchitis, Chronic Obstructive Pulmonary Disease (COPD), Respiratory Failure, Tuberculosis Neurological Medical History: Reports: Seizures - 3 in 2009 none since. Had eeg by Rose, Other - Patient has history of previous episodes of syncope Endocrine Medical History: Denies: Diabetes Mellitus Type 2, Hyperthyroidism, Hypothyroidism Renal/ Medical History: Denies: End Stage Renal Disease Malignancy Medical History: Denies: Leukemia, Lung Cancer GI Medical History: Reports: Gastroesophageal Reflux Disease, Hiatal Hernia Denies: Crohn's Disease Musculoskeltal Medical History: Reports: Arthritis - all over, Gout Denies: Fibromyalgia Psychiatric Medical History: Denies: Bipolar Disorder, Dementia, Depression, Post Traumatic Stress Disorder Hematology: Reports: Anemia Denies: Hemophilia, Sickle Cell Disease Infectious Medical History: Denies: HIV Past Surgical History Past Surgical History: Reports: Cardiac Catheterization, Cholecystectomy, Coronary Stent - [facility] Denies: Appendectomy, Colostomy, Coronary Artery Bypass Graft, Gastric Bypass Surgery, Herniorrhaphy, Pacemaker, Tonsillectomy Social History Smoking Status: Never Smoker Frequency of Alcohol Use: None Hx Recreational Drug Use: No Drugs: None Hx Prescription Drug Abuse: No Family History Family History: CVA, Hypertension Parental Family History Reviewed: Yes Children Family History Reviewed: Yes Sibling(s) Family History Reviewed.: Yes Medication/Allergy Home Medications: Allopurinol [Zyloprim 300 mg Tablet] 300 mg PO QPM 03/24/18 Ascorbic Acid [Vitamin C 500 mg Tablet] 500 mg PO DAILY 03/24/18 Aspirin [Aspirin 81 mg Chewable Tablet] 81 mg PO DAILY 03/24/18 Atorvastatin Calcium [Lipitor 40 mg Tablet] 40 mg PO QHS 03/24/18 Clopidogrel Bisulfate [Plavix 75 mg Tablet] 75 mg PO QHS 03/24/18 Gabapentin [Neurontin] 600 mg PO Q12 03/24/18 Hydralazine HCl 100 mg PO BID 03/24/18 Hydrochlorothiazide [Hydrodiuril 25 mg Tablet] 25 mg PO DAILY 03/24/18 Lubiprostone [Amitiza 24 Mcg Capsule] 48 mcg PO DAILY 03/24/18 Magnesium Oxide [Mag-Ox 400 mg Tablet] 400 mg PO BID 03/24/18 Metoprolol Succinate [Toprol Xl 25 mg Tab.sr] 25 mg PO DAILY 03/24/18 Nitroglycerin [Nitrostat 0.4 mg (1/150 Gr) Tabs 25/Bottle] 0.4 mg SL Q5MP PRN Pantoprazole Sodium [Protonix] 40 mg PO QAM 03/24/18 Allergies/Adverse Reactions: TRIP Inhibitors [Trip Inhibitors] Allergy (Severe, Verified 12/23/17 10:43) Angioneurotic Edema ezetimibe [From Zetia] Adverse Reaction (Verified 12/23/17 10:43) Review of Systems Constitutional: PRESENT: other - Family noticed profuse sweating and shaking at the time of loss of consciousness Eyes: PRESENT: visual disturbances, other - Patient complaining of blurring this morning Ears: ABSENT: hearing changes Nose, Mouth, and Throat: PRESENT: other - Complaining of runny nose Cardiovascular: ABSENT: chest pain, dyspnea on exertion, edema, orthropnea, palpitations Respiratory: PRESENT: other - Complained of shortness of breath from this morning Gastrointestinal: PRESENT: other - One episode of diarrhea 3 days ago Genitourinary: ABSENT: dysuria, hematuria Musculoskeletal: ABSENT: joint swelling Neurological: PRESENT: syncope, other - Patient had a sharp episode of syncope with loss of consciousness for 3-4 seconds this morning as for the family Psychiatric: ABSENT: anxiety, depression, homidical ideation, suicidal ideation Endocrine: ABSENT: cold intolerance, heat intolerance, polydipsia, polyuria Hematologic/Lymphatic: ABSENT: easy bleeding, easy bruising Physical Exam Vital Signs: Temp Pulse Resp BP Pulse Ox 97.8 F 68 20 151/90 H 92 03/24/18 14:40 03/24/18 14:35 03/24/18 15:01 03/24/18 15:01 03/24/18 15:01 General appearance: PRESENT: no acute distress Head exam: PRESENT: atraumatic Eye exam: PRESENT: PERRLA Ear exam: PRESENT: normal external ear exam Mouth exam: PRESENT: moist Neck exam: ABSENT: carotid bruit, JVD, lymphadenopathy, thyromegaly Respiratory exam: PRESENT: clear to auscultation beverley. ABSENT: rales, rhonchi, wheezes Cardiovascular exam: PRESENT: RRR. ABSENT: diastolic murmur, rubs, systolic murmur Pulses: PRESENT: normal dorsalis pedis pul GI/Abdominal exam: PRESENT: normal bowel sounds, soft. ABSENT: distended, guarding, mass, organolmegaly, rebound, tenderness Neurological exam: PRESENT: alert, awake, oriented to person, oriented to place , oriented to time, oriented to situation, CN II-XII grossly intact. ABSENT: motor sensory deficit Psychiatric exam: PRESENT: appropriate affect, normal mood. ABSENT: homicidal ideation, suicidal ideation Skin exam: PRESENT: dry, intact, warm. ABSENT: cyanosis, rash Results Laboratory Results: 03/24/18 14:46 Urine Color STRAW Urine Appearance CLEAR Urine pH 7.0 Ur Specific [place] 1.009 Urine Protein NEGATIVE Urine Glucose (UA) NEGATIVE Urine Ketones NEGATIVE Urine Blood NEGATIVE Urine Nitrite NEGATIVE Ur Leukocyte Esterase SMALL H Urine WBC (Auto) 3 Urine RBC (Auto) 1 Impressions: Head CT 03/24/18 12:14 IMPRESSION: NORMAL BRAIN CT WITHOUT CONTRAST. EVIDENCE OF ACUTE STROKE: NO. Assessment & Plan - Diagnosis (1) Syncope Qualifiers: Syncope type: unspecified Qualified Code(s): R55 - Syncope and collapse Is this a current diagnosis for this admission?: Yes Plan: 03/24/2018 patient has a syncopal episode this morning lasting for 3-4 seconds associated with sweating shaking and patient was slight slide to the floor from the sulfa and unconscious for 3-[address] head was negative in the ER we are planning to do carotid Doppler tomorrow morning and also requested for neuro checks every 6 hours for the next 24 hours aspiration fall precautions were requested DVT prophylaxis with OBDULIO hoses and Lovenox 40 mg subcu daily was started. EKG was requested. patient has previous history of syncopal episodes with associated with UTI I requested for urine culture (2) Essential (primary) hypertension Is this a current diagnosis for this admission?: Yes Plan: 03/24/2018 patient has chronic history of hypertension blood pressures is stable right now the plan is to continue his home medications (3) UTI (urinary tract infection) Plan: 05/24/2017 patient has a previous history of UTI associated with syncopal episodes urine analysis shows few bacteria be going to request for urine culture. (4) Presence of stent in coronary artery in patient with coronary artery disease Is this a current diagnosis for this admission?: Yes Plan: 05/24/2017 patient has history of coronary artery disease status post stent placement denies any chest pains at this time plan is to continue his home medications (5) Gout Is this a current diagnosis for this admission?: Yes Plan: 03/24/2018 patient has history of gout he denies any symptoms of gout at this time (6) Hyperlipemia Is this a current diagnosis for this admission?: Yes Plan: 05/24/2017 patient has a history of hyperlipidemia on atorvastatin at home we are planning to continue the atorvastatin at this time
--- NOTE | 2018-03-24 17:09 | RADIOLOGY REPORT (SQ) ---
EXAM DESCRIPTION: CHEST SINGLE VIEW COMPLETED DATE/TIME: 03/24/2018 4:55 pm REASON FOR STUDY: shortness of breath COMPARISON: Two-view chest 09/25/2017 EXAM PARAMETERS: NUMBER OF VIEWS: One view. TECHNIQUE: Single frontal radiographic view of the chest acquired. RADIATION DOSE: NA LIMITATIONS: Obese patient, AP portable technique FINDINGS: LUNGS AND PLEURA: Left basilar bandlike atelectasis is present. No focal right-sided infi ltrates. No pleural effusion or pneumothorax. MEDIASTINUM AND HILAR STRUCTURES: No masses. Contour normal. HEART AND VASCULAR STRUCTURES: Heart normal in size. Normal vasculature. BONES: No acute findings. HARDWARE: None in the chest. OTHER: Metallic foreign body anterior chest wall projected over the left hilum IMPRESSION: NO ACUTE RADIOGRAPHIC FINDING IN THE CHEST. TECHNICAL DOCUMENTATION: JOB ID: [id number] [employer]- All Rights Reserved Reading location - IP/workstation name: [email or web address]
[2018-03-24] MEDS: MAGNESIUM OXIDE 400 MG TABLET PO SCH (17:36)
[2018-03-24] MEDS: DOCUSATE SODIUM 100 MG CAPSULE PO SCH (17:36)
[2018-03-24] MEDS ORDERED: ALLOPURINOL 300 MG TABLET PO SCH (18:00)
[2018-03-24] MEDS ORDERED: (PENDING PHARMACY ID) (Hydralazine Hcl [Hydralazine Hcl] 100 MG) PO SCH (18:00)
--- NOTE | 2018-03-24 20:38 | RADIOLOGY REPORT (SQ) ---
EXAM DESCRIPTION: CAROTID DOPPLER COMPLETED DATE/TIME: 03/24/2018 8:12 pm REASON FOR STUDY: syncope N39.0 URINARY TRACT INFECTION, SITE NOT SPECIFIED R00.0 TACHYCARDIA, UNS PECIFIED COMPARISON: 10/19/2014 TECHNIQUE: Grayscale ultrasound, Doppler velocity and spectra, and color Doppler images acquired of the extra-cranial carotid and vertebral arteries. Images stored on PACS. LIMITATIONS: None. FINDINGS: RIGHT CAROTID CCA Velocities: 61 centimeters/second ICA Velocities Peak systolic 72 cm/s. End diastolic 6 cm/s. Proximal ICA/CCA peak systolic ratio 1.2. There is some soft plaque in the carotid bulb. LEFT CAROTID CCA Velocities: 87 centimeters/second ICA Velocities Peak systolic 106 cm/s. End diastolic 27 cm/s. Proximal ICA/CCA peak systolic ratio 1.2. There is considerable soft plaque in the carotid bulb and proximal internal and external carotid elmira haley. VERTEBRAL ARTERIES: Antegrade flow. Normal waveforms. SUBCLAVIAN ARTERIES: No finding. OTHER: No other significant finding. IMPRESSION: NO HEMODYNAMICALLY SIGNIFICANT STENOSIS. COMMENT: Quality ID #[id number]: Velocity criteria are extrapolated from the diameter data as defined by t he Society of Radiologists in Ultrasound Consensus Conference. Radiology 2003: 229; 340-346. TECHNICAL DOCUMENTATION: JOB ID: [id number] [employer]- All Rights Reserved Reading location - IP/workstation name: [email or web address]
--- NOTE | 2018-03-24 21:07 | EKG REPORT ---
SEVERITY:- ABNORMAL ECG - SINUS RHYTHM FIRST DEGREE AV BLOCK : Confirmed by: Diana Schneider MD 24-Mar-2018 21:06:51
[2018-03-24] MEDS: GABAPENTIN 300 MG CAPSULE PO SCH (21:46)
[2018-03-24] MEDS: FAMOTIDINE 20 MG TABLET PO SCH (21:47)
[2018-03-24] MEDS: HYDRALAZINE HCL 50 MG TABLET PO SCH (21:47)
[2018-03-24] MEDS ORDERED: CLOPIDOGREL BISULFATE 75 MG TABLET PO SCH (22:00)
[2018-03-24] MEDS ORDERED: ZOLPIDEM TARTRATE 5 MG TABLET PO SCH (22:00)
[2018-03-24] MEDS ORDERED: ATORVASTATIN CALCIUM 40 MG TABLET PO SCH (22:00)
[2018-03-24] MEDS: ACETAMINOPHEN 325 MG TABLET PO PRN (22:49)
[2018-03-25] MEDS ORDERED: LANSOPRAZOLE 30 MG TAB.RAP.DR PO SCH (06:00)
[2018-03-25 07:13] LABS: ABSOLUTE BASOPHILS # (AUTO) 0.1 10^3/uL (0.0-0.2); ABSOLUTE EOSINOPHILS # (AUTO) 0.1 10^3/uL (0.0-0.6); ABSOLUTE LYMPHOCYTES (AUTO) 1.6 10^3/uL (0.5-4.7); ABSOLUTE MONOCYTES (AUTO) 0.7 10^3/uL (0.1-1.4); ABSOLUTE NEUT (AUTO) 6.7 10^3/uL (1.7-8.2); BASOPHILS % (AUTO) 0.5 % (0-2); EOSINOPHILS % (AUTO) 0.8 % (0-6); HEMATOCRIT 33.1 % (37.9-51.0); HEMOGLOBIN 10.9 g/dL (13.5-17.0); LYMPHOCYTES % (AUTO) 17.9 % (13-45); MEAN CORPUSCULAR HEMOGLOBIN 30.6 pg (27.0-33.4); MEAN CORPUSCULAR VOLUME 93 fl (80-97); MONOCYTES % (AUTO) 7.6 % (3-13); PLATELET COUNT 175 10^3/uL (150-450); RED BLOOD COUNT 3.58 10^6/uL (4.35-5.55); RED CELL DISTRIBUTION WIDTH 17.8 % (11.5-14.0); SEGMENTED NEUTROPHILS % (AUTO) 73.2 % (42-78); TOTAL CELLS COUNTED % (AUTO) 100 %; WHITE BLOOD COUNT 9.2 10^3/uL (4.0-10.5)
[2018-03-25 07:34] LABS: ALANINE AMINOTRANSFERASE 15 U/L (21-72); ALBUMIN 3.4 g/dL (3.5-5.0); ALKALINE PHOSPHATASE 106 U/L (38-126); ANION GAP 11 (5-19); ASPARTATE AMINO TRANSFERASE 19 U/L (17-59); BILIRUBIN,DIRECT 0.3 mg/dL (0.0-0.4); BILIRUBIN,TOTAL 0.6 mg/dL (0.2-1.3); BLOOD UREA NITROGEN 22 mg/dL (7-20); CALCIUM 8.8 mg/dL (8.4-10.2); CARBON DIOXIDE 26 mmol/L (22-30); CHLORIDE 105 mmol/L (98-107); CREATINE KINASE 115 U/L (55-170); GLUCOSE 95 mg/dL (75-110); POTASSIUM 4.5 mmol/L (3.6-5.0); SODIUM 142.1 mmol/L (137-145); TOTAL PROTEIN 6.1 g/dL (6.3-8.2)
[2018-03-25] MEDS: ACETAMINOPHEN 325 MG TABLET PO PRN (08:16)
[2018-03-25] MEDS ORDERED: METOPROLOL SUCCINATE 25 MG TAB.SR.24H PO SCH (10:00)
[2018-03-25] MEDS ORDERED: ASPIRIN 81 MG TABLET, CHEWABLE PO SCH (10:00)
[2018-03-25] MEDS ORDERED: LUBIPROSTONE 24 MCG CAPSULE PO SCH (10:00)
[2018-03-25] MEDS ORDERED: HYDROCHLOROTHIAZIDE 25 MG TABLET PO SCH (10:00)
[2018-03-25] MEDS ORDERED: ASCORBIC ACID 500 MG TABLET PO SCH (10:00)
[2018-03-25] MEDS ORDERED: ENOXAPARIN SODIUM INJ 40 MG/0.4 ML DISP.SYRIN SUBCUT SCH (10:00)
[2018-03-25] MEDS: GABAPENTIN 300 MG CAPSULE PO SCH (10:15)
[2018-03-25] MEDS: MAGNESIUM OXIDE 400 MG TABLET PO SCH (10:15)
[2018-03-25] MEDS: FAMOTIDINE 20 MG TABLET PO SCH (10:15)
[2018-03-25] MEDS: DOCUSATE SODIUM 100 MG CAPSULE PO SCH (10:16)
[2018-03-25] MEDS: HYDRALAZINE HCL 50 MG TABLET PO SCH (10:16)
[2018-03-25 12:51] VITALS: BP 122/55
--- NOTE | 2018-03-25 14:52 | PDOC DISCHARGE SUMMARY ---
General - Admit/Disc Date/PCP Admission Date/Primary Care Provider: 03/24/18 14:39 LORENZO KHAN MD Discharge Date: 03/25/18 - Discharge Diagnosis (1) Syncope Is this a current diagnosis for this admission?: Yes (2) Essential (primary) hypertension Is this a current diagnosis for this admission?: Yes (3) UTI (urinary tract infection) Is this a current diagnosis for this admission?: Yes (4) Presence of stent in coronary artery in patient with coronary artery disease Is this a current diagnosis for this admission?: Yes (5) Gout Is this a current diagnosis for this admission?: Yes (6) Hyperlipemia Is this a current diagnosis for this admission?: Yes - Additional Information Resuscitation Status: Full Code Discharge Diet: As Tolerated Discharge Activity: Activity As Tolerated Home Medications: Allopurinol [Zyloprim 300 mg Tablet] 300 mg PO QPM 03/24/18 Ascorbic Acid [Vitamin C 500 mg Tablet] 500 mg PO DAILY 03/24/18 Aspirin [Aspirin 81 mg Chewable Tablet] 81 mg PO DAILY 03/24/18 Atorvastatin Calcium [Lipitor 40 mg Tablet] 40 mg PO QHS 03/24/18 Clopidogrel Bisulfate [Plavix 75 mg Tablet] 75 mg PO QHS 03/24/18 Gabapentin [Neurontin] 600 mg PO Q12 03/24/18 Hydralazine HCl 100 mg PO BID 03/24/18 Hydrochlorothiazide [Hydrodiuril 25 mg Tablet] 25 mg PO DAILY 03/24/18 Lubiprostone [Amitiza 24 Mcg Capsule] 48 mcg PO DAILY 03/24/18 Magnesium Oxide [Mag-Ox 400 mg Tablet] 400 mg PO BID 03/24/18 Nitroglycerin [Nitrostat 0.4 mg (1/150 Gr) Tabs 25/Bottle] 0.4 mg SL Q5MP PRN Pantoprazole Sodium [Protonix] 40 mg PO QAM 03/24/18 History of Present Illness Patient complains of: came to the ER with complaints of loss of consciousness morning. Patient and family giving history at that patient is not feeling well for the last couple of days he has severe diarrhea last Friday and is not feeling well since yesterday he woke up this morning and 80s per request and started watching TV all of a sudden he felt like stomach is rolling felt dizzy he put his head down and try to get up to go to the bathroom and asked by the family passed out for 3-4 seconds and during this episode he passed a urine and the family noticed sweating and shaking during this a short episode of loss of consciousness. She has these previous episodes before last episode was 1 year ago at that time he was found to have a UTI and he was in the hospital for a couple of days patient denies any history of fever chills and Reiger's complaints of shortness of breath from today and headaches from this morning denies any chest pains denies any cough or cold denies any problems with urination denies any musculoskeletal pain denies any rashes complaining of clear runny nose. History of Present Illness: ZAIRA GOOD is a 77 year old male came to the ER with complaints of loss of consciousness morning. Patient and family giving history at that patient is not feeling well for the last couple of days he has severe diarrhea last Friday and is not feeling well since yesterday he woke up this morning and 80s per request and started watching TV all of a sudden he felt like stomach is rolling felt dizzy he put his head down and try to get up to go to the bathroom and asked by the family passed out for 3-4 seconds and during this episode he passed a urine and the family noticed sweating and shaking during this a short episode of loss of consciousness. She has these previous episodes before last episode was 1 year ago at that time he was found to have a UTI and he was in the hospital for a couple of days patient denies any history of fever chills and Reiger's complaints of shortness of breath from today and headaches from this morning denies any chest pains denies any cough or cold denies any problems with urination denies any musculoskeletal pain denies any rashes complaining of clear runny nose. Hospital Course Hospital Course: 03/25/2018-admitted with syncopal symptoms, CT head was negative carotid Doppler was negative EKG shows first-degree AV block I discontinued his metoprolol. Neurochecks are negative during the hospital stay . Able to work with physical therapy without any problems. Head was negative. The cause of syncope is unspecified at this time. Termination today patient alert and awake communicating well. Neurological examination this morning is normal. Can go home today. Physical Exam Vital Signs: Temp Pulse Resp BP Pulse Ox 97.7 F 75 16 122/55 L 99 03/25/18 12:31 03/25/18 12:31 03/25/18 12:31 03/25/18 12:31 03/25/18 12:31 Intake & Output 03/24/18 03/25/18 03/26/18 06:59 06:59 06:59 Intake Total 350 240 Output Total 500 Balance -150 240 Weight 114.3 kg General appearance: PRESENT: no acute distress Head exam: PRESENT: atraumatic, normocephalic Eye exam: PRESENT: PERRLA Neck exam: PRESENT: carotid bruit Respiratory exam: PRESENT: clear to auscultation beverley. ABSENT: rales, rhonchi, wheezes Cardiovascular exam: PRESENT: RRR. ABSENT: diastolic murmur, rubs, systolic murmur GI/Abdominal exam: PRESENT: ascites, normal bowel sounds, soft. ABSENT: distended, guarding, mass, organolmegaly, rebound, tenderness Neurological exam: PRESENT: alert, awake, oriented to person, oriented to place , oriented to time, oriented to situation, CN II-XII grossly intact. ABSENT: motor sensory deficit Psychiatric exam: PRESENT: appropriate affect, normal mood. ABSENT: homicidal ideation, suicidal ideation Results Laboratory Results: 03/25/18 06:15 03/25/18 06:15 03/24/18 03/25/18 03/25/18 14:46 06:15 06:15 WBC 9.2 RBC 3.58 L Hgb 10.9 L Hct 33.1 L MCV 93 MCH 30.6 MCHC 33.0 RDW 17.8 H Plt Count 175 Seg Neutrophils % 73.2 Lymphocytes % 17.9 Monocytes % 7.6 Eosinophils % 0.8 Basophils % 0.5 Absolute Neutrophils 6.7 Absolute Lymphocytes 1.6 Absolute Monocytes 0.7 Absolute Eosinophils 0.1 Absolute Basophils 0.1 Sodium 142.1 Potassium 4.5 Chloride 105 Carbon Dioxide 26 Anion Gap 11 BUN 22 H Creatinine 1.08 Est GFR ( Amer) > 60 Est GFR (Non-Af Amer) > 60 Glucose 95 Calcium 8.8 Magnesium 1.7 Total Bilirubin 0.6 AST 19 ALT 15 L Alkaline Phosphatase 106 Total Protein 6.1 L Albumin 3.4 L TSH Urine Color STRAW Urine Appearance CLEAR Urine pH 7.0 Ur Specific [place] 1.009 Urine Protein NEGATIVE Urine Glucose (UA) NEGATIVE Urine Ketones NEGATIVE Urine Blood NEGATIVE Urine Nitrite NEGATIVE Ur Leukocyte Esterase SMALL H Urine WBC (Auto) 3 Urine RBC (Auto) 1 03/25/18 06:15 WBC RBC Hgb Hct MCV MCH MCHC RDW Plt Count Seg Neutrophils % Lymphocytes % Monocytes % Eosinophils % Basophils % Absolute Neutrophils Absolute Lymphocytes Absolute Monocytes Absolute Eosinophils Absolute Basophils Sodium Potassium Chloride Carbon Dioxide Anion Gap BUN Creatinine Est GFR ( Amer) Est GFR (Non-Af Amer) Glucose Calcium Magnesium Total Bilirubin AST ALT Alkaline Phosphatase Total Protein Albumin TSH 0.60 Urine Color Urine Appearance Urine pH Ur Specific [place] Urine Protein Urine Glucose (UA) Urine Ketones Urine Blood Urine Nitrite Ur Leukocyte Esterase Urine WBC (Auto) Urine RBC (Auto) 03/24/18 03/24/18 03/24/18 17:44 17:44 23:45 Creatine Kinase 164 140 Troponin I 0.012 03/24/18 03/25/18 03/25/18 23:45 06:15 06:15 Creatine Kinase 115 Troponin I < 0.012 0.013 Impressions: Carotid Doppler Study 03/24/18 00:00 IMPRESSION: NO HEMODYNAMICALLY SIGNIFICANT STENOSIS. Head CT 03/24/18 12:14 IMPRESSION: NORMAL BRAIN CT WITHOUT CONTRAST. EVIDENCE OF ACUTE STROKE: NO. Chest X-Ray 03/24/18 15:35 IMPRESSION: NO ACUTE RADIOGRAPHIC FINDING IN THE CHEST. Qualifiers - * PATIENT BEING DISCHARGED WITH ANY OF THE FOLLOWING DIAGNOSIS: No VTE patient discharged on overlapping Therapy?: Yes Plan Discharge Plan: 05/25/2017. Patient was advised to follow-up with his primary care physician in 1 week. Plan to him that if symptoms comes back again to come to the hospital as soon as possible. And understood and verbalized his response. Advised the patient to not to take metoprolol until he sees a cutting machine tender helper. She did express no concerns.
--- NOTE | 2018-03-25 15:43 | EKG REPORT ---
SEVERITY:- OTHERWISE NORMAL ECG - SINUS ARRHYTHMIA, RATE 67-92 LOW VOLTAGE IN FRONTAL LEADS : Confirmed by: Diana Schneider MD 25-Mar-2018 15:43:23
== END 2018-03-25 13:48 | disposition home or self-care (01) ==
LOC: ER 11:33 → EH 14:39 → 4S 16:02
PROVIDERS: ADMIT Internal Medicine; ATTEND Internal Medicine
DX: R55 Syncope and collapse (principal); I10 Essential (primary) hypertension; N39.0 Urinary tract infection, site not specified; I25.10 Atherosclerotic heart disease of native coronary artery without angina pectoris; M10.9 Gout, unspecified; E78.5 Hyperlipidemia, unspecified; R19.7 Diarrhea, unspecified; R06.02 Shortness of breath; R61 Generalized hyperhidrosis; R32 Unspecified urinary incontinence; R51 Headache; I44.0 Atrioventricular block, first degree; G25.89 Other specified extrapyramidal and movement disorders; R09.89 Other specified symptoms and signs involving the circulatory and respiratory systems; H53.8 Other visual disturbances; R11.0 Nausea; Z95.5 Presence of coronary angioplasty implant and graft; Z79.899 Other long term (current) drug therapy; Z79.82 Long term (current) use of aspirin; Z86.69 Personal history of other diseases of the nervous system and sense organs; Z90.49 Acquired absence of other specified parts of digestive tract; Z82.49 Family history of ischemic heart disease and other diseases of the circulatory system; Z79.02 Long term (current) use of antithrombotics/antiplatelets; Z82.3 Family history of stroke
CPT/HCPCS: 93005 ×2; 99285; 36415 ×2; 87086; 82553; 82550 ×2; 83735; 84443; 85025 ×2; 87088; 80053 ×2; 81001; 84484 ×2; 87186; 93880; 71045; 70450; 93010; 97110; 97116; 97163; G0378 ×2; A9270 ×20; J1650; J3490; G8978; G8979; G8980

== ENCOUNTER 2018-06-03 15:45 | Inpatient (IN) | payer OTHER, MEDICARE ==
[2018-06-03 16:16] LABS: ABSOLUTE LYMPHOCYTES (AUTO) 0.9 10^3/uL (0.5-4.7); ABSOLUTE MONOCYTES (AUTO) 0.9 10^3/uL (0.1-1.4); ABSOLUTE NEUT (AUTO) 8.1 10^3/uL (1.7-8.2); BASOPHILS % (AUTO) 0.4 % (0-2); HEMATOCRIT 35.1 % (37.9-51.0); HEMOGLOBIN 11.5 g/dL (13.5-17.0); LYMPHOCYTES % (AUTO) 9.4 % (13-45); MEAN CORPUSCULAR HEMOGLOBIN 30.7 pg (27.0-33.4); MEAN CORPUSCULAR HGB CONC 32.8 g/dL (32.0-36.0); MEAN CORPUSCULAR VOLUME 94 fl (80-97); MONOCYTES % (AUTO) 8.9 % (3-13); PLATELET COUNT 224 10^3/uL (150-450); RED BLOOD COUNT 3.75 10^6/uL (4.35-5.55); RED CELL DISTRIBUTION WIDTH 17.2 % (11.5-14.0); SEGMENTED NEUTROPHILS % (AUTO) 81.3 % (42-78); TOTAL CELLS COUNTED % (AUTO) 100 %
[2018-06-03 16:17] LABS: VENOUS BLOOD BASE EXCESS -1.2 mmol/L; VENOUS BLOOD HCO3 23.3 mmol/L (20-32); VENOUS BLOOD PCO2 38.5 mmHg (35-63); VENOUS BLOOD PH 7.4 (7.30-7.42)
[2018-06-03 16:21] LABS: INTERNATIONAL RATION (INR) 1.12
[2018-06-03 16:35] LABS: ALANINE AMINOTRANSFERASE 34 U/L (21-72); ALBUMIN 4.4 g/dL (3.5-5.0); ALKALINE PHOSPHATASE 156 U/L (38-126); ANION GAP 12 (5-19); ASPARTATE AMINO TRANSFERASE 38 U/L (17-59); BILIRUBIN,DIRECT 0.4 mg/dL (0.0-0.4); BILIRUBIN,TOTAL 0.9 mg/dL (0.2-1.3); BLOOD UREA NITROGEN 37 mg/dL (7-20); CALCIUM 9.3 mg/dL (8.4-10.2); CARBON DIOXIDE 24 mmol/L (22-30); CHLORIDE 104 mmol/L (98-107); GLUCOSE 131 mg/dL (75-110); POTASSIUM 4.1 mmol/L (3.6-5.0); SODIUM 140.1 mmol/L (137-145); TOTAL PROTEIN 7.9 g/dL (6.3-8.2)
--- NOTE | 2018-06-03 16:47 | RADIOLOGY REPORT (SQ) ---
EXAM DESCRIPTION: CHEST SINGLE VIEW COMPLETED DATE/TIME: 06/03/2018 4:30 pm REASON FOR STUDY: bed 3 sepsis protocol COMPARISON: 03/24/2018 EXAM PARAMETERS: NUMBER OF VIEWS: One view. TECHNIQUE: Single frontal radiographic view of the chest acquired. RADIATION DOSE: NA LIMITATIONS: Low lung volumes. FINDINGS: LUNGS AND PLEURA: No opacities, masses or pneumothorax. No pleural effusion. MEDIASTINUM AND HILAR STRUCTURES: No masses. Contour normal. HEART AND VASCULAR STRUCTURES: Heart normal in size. Normal vasculature. BONES: No acute findings. HARDWARE: None in the chest. OTHER: No other significant finding. IMPRESSION: Negative chest allowing for low lung volumes. TECHNICAL DOCUMENTATION: JOB ID: [id number] [employer]- All Rights Reserved Reading location - IP/workstation name: [email or web address]
[2018-06-03] MEDS ORDERED: NORMAL SALINE 1000 ML 1,000 ML IV ONE ×2 (16:52→19:20)
--- NOTE | 2018-06-03 17:02 | ER Document Report ---
ED General - General Chief Complaint: General Weakness Stated Complaint: WEAKNESS Time Seen by Provider: 06/03/18 16:47 Primary Care Provider: LORENZO KHAN MD [Primary Care Provider] - Follow up as needed TRAVEL OUTSIDE OF THE [place] IN LAST 30 DAYS: No - HPI Patient complains to provider of: Generalized weakness, fever Onset: This morning Onset/Duration: Persistent Associated symptoms: Body/muscle aches, Fever, Weakness Notes: Patient is an 78-year-old male brought to the emergency room by EMS for generalized weakness, he is noted to have a fever by EMS, EMS administered 325 aspirin and 975 of tylenol, patient is somewhat somnolent and apparently his is at a doctor's appointment of her own, family friend is at bedside who reports that he has a history of urinary tract infections with similar symptoms in the past - Related Data Allergies/Adverse Reactions: TRIP Inhibitors [Trip Inhibitors] Allergy (Severe, Verified 12/23/17 10:43) Angioneurotic Edema ezetimibe [From Zetia] Adverse Reaction (Verified 12/23/17 10:43) Past Medical History - General Information source: Patient - Social History Smoking Status: Unknown if Ever Smoked Family History: CVA, Hypertension Patient has suicidal ideation: No Patient has homicidal ideation: No - Past Medical History Cardiac Medical History: Reports: Hx Coronary Artery Disease - 2011 [facility], Hx Hypercholesterolemia, Hx Hypertension - meds Denies: Hx Atrial Fibrillation, Hx Congestive Heart Failure, Hx Heart Attack, Hx Peripheral Vascular Disease, Hx Pulmonary Embolism, Hx Heart Murmur Pulmonary Medical History: Reports: Hx Pneumonia - 1944, Hx Sleep Apnea - cpap doesn't use Denies: Hx Asthma, Hx Bronchitis, Hx COPD, Hx Respiratory Failure, Hx Tuberculosis Neurological Medical History: Reports: Hx Seizures - 3 in 2009 none since. Had eeg by [facility]. Denies: Hx Cerebrovascular Accident Endocrine Medical History: Denies: Hx Diabetes Mellitus Type 2, Hx Hyper thyroidism, Hx Hypothyroidism Renal/ Medical History: Denies: Hx Benign Prostatic Hyperplasia, Hx End Stage Renal Disease, Hx Kidney Stones, Hx Peritoneal Dialysis Malignancy Medical History: Denies Hx Leukemia, Denies Hx Lung Cancer GI Medical History: Reports: Hx Gastroesophageal Reflux Disease, Hx Hiatal Hernia. Denies: Hx Cirrhosis, Hx Crohn's Disease, Hx Irritable Bowel, Hx Liver Failure, Hx Pancreatitis, Hx Ulcer Musculoskeletal Medical History: Reports Hx Arthritis - all over, Denies Hx Fibromyalgia, Reports Hx Gout, Denies Hx Multiple Sclerosis, Denies Hx Muscular Dystrophy Psychiatric Medical History: Denies: Hx Bipolar Disorder, Hx Dementia, Hx Depression, Hx Post Traumatic Stress Disorder, Hx Schizophrenia Traumatic Medical History: Denies: Hx Fractures Infectious Medical History: Denies: Hx HIV Past Surgical History: Reports: Hx Cardiac Catheterization, Hx Cholecystectomy, Hx Coronary Stent - 2011, [facility]. Denies: Hx Appendectomy, Hx Bowel Surgery, Hx Colostomy, Hx Coronary Artery Bypass Graft, Hx Gastric Bypass Surgery, Hx Herniorrhaphy, Hx Open Heart Surgery, Hx Pacemaker, Hx Tonsillectomy - Immunizations Immunizations up to date: Yes Hx Diphtheria, Pertussis, Tetanus Vaccination: No Review of Systems - Review of Systems -: Yes ROS unobtainable due to patient's medical condition Constitutional: Chills, Fever, Weakness EENT: No symptoms reported Cardiovascular: No symptoms reported Respiratory: No symptoms reported Gastrointestinal: No symptoms reported Genitourinary: No symptoms reported Male Genitourinary: No symptoms reported Musculoskeletal: No symptoms reported Skin: No symptoms reported Hematologic/Lymphatic: No symptoms reported Neurological/Psychological: No symptoms reported Physical Exam - Vital signs Vitals: Temp Pulse Resp BP 98.7 F 100 23 H 151/57 H 06/03/18 16:24 06/03/18 16:24 06/03/18 16:24 06/03/18 16:24 Interpretation: Hypertensive, Tachypneic - General General appearance: Other - Somnolent In distress: None - HEENT Head: Normocephalic, Atraumatic Eyes: Normal Extraocular movements intact: Yes Eyelashes: Normal Pupils: PERRL Mucous membranes: Dry - Respiratory Respiratory status: No respiratory distress Chest status: Nontender Breath sounds: Normal Chest palpation: Normal - Cardiovascular Rhythm: Regular Heart sounds: Normal auscultation Murmur: No - Abdominal Inspection: Normal Distension: No distension Bowel sounds: Normal Tenderness: Tender - Mild suprapubic tenderness Organomegaly: No organomegaly - Extremities General upper extremity: Normal inspection General lower extremity: Normal inspection - Neurological Con[place] Coma Scale Eye Opening: To Voice [place] Coma Scale Verbal: Oriented Con[place] Coma Scale Motor: Obeys Commands [place] Coma Scale Total: 14 - Skin Skin Temperature: Warm Skin Moisture: Dry Skin Color: Normal Course - Re-evaluation Re-evalutation: 06/03/18 17:46 Patient's is in the emergency department now, reports that he has been sick since Friday with fever chills and body aches, decreased p.o. intake urinary tract infections with similar symptoms, also reports that he has been complaining of body aches all over including his knees, his hips, his back, his neck 06/03/18 19:25 Patient's primary care provider is Dr. Trujillo, therefore a call was placed and patient was discussed, he requests patient be admitted to telemetry for further evaluation and treatment - Vital Signs Vital signs: Temp Pulse Resp BP Pulse Ox 98.7 F 100 23 H 151/57 H 06/03/18 16:24 06/03/18 16:24 06/03/18 16:24 06/03/18 16:24 - Laboratory Result Diagrams: 06/03/18 16:03 06/03/18 16:03 Laboratory results interpreted by me: 06/03/18 06/03/18 06/03/18 16:03 16:03 16:15 RBC 3.75 L Hgb 11.5 L Hct 35.1 L RDW 17.2 H Seg Neutrophils % 81.3 H Lymphocytes % 9.4 L BUN 37 H Creatinine 1.99 H Est GFR ( Amer) 39 L Est GFR (Non-Af Amer) 32 L Glucose 131 H POC Glucose 135 H Alkaline Phosphatase 156 H Urine Protein Urine Urobilinogen Urine Ascorbic Acid 06/03/18 18:55 RBC Hgb Hct RDW Seg Neutrophils % Lymphocytes % BUN Creatinine Est GFR ( Amer) Est GFR (Non-Af Amer) Glucose POC Glucose Alkaline Phosphatase Urine Protein 30 H Urine Urobilinogen 2.0 H Urine Ascorbic Acid 40 H - Diagnostic Test Radiology reviewed: Image reviewed, Reports reviewed - EKG Interpretation by Me EKG shows normal: Sinus rhythm Rate: Normal Rhythm: NSR Discharge - Discharge Clinical Impression: FLACO (acute kidney injury), Viral illness Fever Qualifiers: Fever type: unspecified Qualified Code(s): R50.9 - Fever, unspecified Condition: Fair Disposition: ADMITTED INPATIENT Admitting Provider: Dalton Unit Admitted: Telemetry Referrals: LORENZO KHAN MD [Primary Care Provider] - Follow up as needed
[2018-06-03 17:27] LABS: A TYPE INFLUENZA AG NEGATIVE (NEGATIVE); B INFLUENZA AG NEGATIVE (NEGATIVE)
[2018-06-03] MEDS ORDERED: CEFTRIAXONE INJ 500 MG VIAL IV ONE (17:46)
--- NOTE | 2018-06-03 18:49 | EKG REPORT ---
SEVERITY:- BORDERLINE ECG - SINUS RHYTHM LOW VOLTAGE IN FRONTAL LEADS NONSPECIFIC ST-T CHANGES INFERIOR LEADS : Confirmed by: Satinder Banks MD 03-Jun-2018 18:48:33
[2018-06-03] MEDS ORDERED: DIPHENHYDRAMINE HCL 50 MG/ML VIAL IV ONE (18:51)
[2018-06-03] MEDS ORDERED: HYDROCODONE/ACETAMINOPHEN 5-325 MG TABLET PO ONE (18:51)
[2018-06-03 19:12] LABS: APPEARANCE,URINE CLOUDY; BILIRUBIN,URINE NEGATIVE (NEGATIVE); COLOR,URINE YELLOW; GLUCOSE, URINE NEGATIVE (NEGATIVE); KETONES,URINE NEGATIVE (NEGATIVE); LEUKOCYTE ESTERASE,URINE NEGATIVE (NEGATIVE); NITRITE,URINE NEGATIVE (NEGATIVE); PROTEIN,URINE 30 mg/dL (NEGATIVE); URINE SPECIFIC GRAVITY 1.015
[2018-06-03] MEDS ORDERED: ATORVASTATIN CALCIUM 40 MG TABLET PO SCH (22:00)
[2018-06-03] MEDS: 1/2 NORMAL SALINE 1,000 ML IV PRN (23:57)
[2018-06-04 07:05] LABS: ANION GAP 9 (5-19); BLOOD UREA NITROGEN 32 mg/dL (7-20); CALCIUM 8.5 mg/dL (8.4-10.2); CARBON DIOXIDE 22 mmol/L (22-30); CHLORIDE 108 mmol/L (98-107); GLUCOSE 92 mg/dL (75-110); POTASSIUM 4.2 mmol/L (3.6-5.0); SODIUM 139.4 mmol/L (137-145)
--- NOTE | 2018-06-04 07:34 | PDOC H&P ---
History of Present Illness Admission Date/PCP: 06/03/18 19:30 LORENZO KHAN MD Patient complains of: 1w fever myalgia History of Present Illness: ZAIRA GOOD is a 78 year old male with chronic malaise and polycystic kidneys. 10d ago he presented with nausea dizziness foul urine low back pain. Urine had 1+ leukocytes and grew pansensitive 100k E coli. He took 3 days of bactrim that helped. Now he has had 1w fever chills myalgia. Today he was too weak and light headed to get out of bed. EMS reported fever. JPM had scheduled cervical epidural steroid but postponed to 8feb because of recent antibiotic. Past Medical History Cardiac Medical History: Reports: Coronary Artery Disease - 2011 stend [facility], Hyperlipidema, Hypertension - meds Denies: Atrial Fibrillation, Congestive Heart Failure, Myocardial Infarction, Peripheral Vascular Disease, Pulmonary Embolism, Heart Murmur Pulmonary Medical History: Reports: Pneumonia - 1944, Sleep Apnea - cpap doesn't use, Other - coal workers pneumoconiosis Denies: Asthma, Bronchitis, Chronic Obstructive Pulmonary Disease (COPD), Respiratory Failure, Tuberculosis EENT Medical History: Reports: None Neurological Medical History: Reports: Seizures - 3 in 2009 none since. Had eeg by [facility] Endocrine Medical History: Denies: Diabetes Mellitus Type 2, Hyperthyroidism, Hypothyroidism Renal/ Medical History: Reports: Chronic Kidney Disease, Other - cr1.1-1.9 Denies: End Stage Renal Disease Malignancy Medical History: Reports: None Denies: Leukemia, Lung Cancer GI Medical History: Reports: Gastroesophageal Reflux Disease, Hiatal Hernia Denies: Cirrhosis, Crohn's Disease Musculoskeltal Medical History: Reports: Arthritis - all over, Gout Denies: Fibromyalgia Skin Medical History: Reports: None Psychiatric Medical History: Denies: Bipolar Disorder, Dementia, Depression, Post Traumatic Stress Disorder Traumatic Medical History: Reports: None Hematology: Reports: Anemia Denies: Hemophilia, Sickle Cell Disease Infectious Medical History: Reports: None Denies: HIV Past Surgical History Past Surgical History: Reports: Cardiac Catheterization, Cholecystectomy, Coronary Stent - 2011, [facility] Denies: Appendectomy, Colostomy, Coronary Artery Bypass Graft, Gastric Bypass Surgery, Herniorrhaphy, Pacemaker, Tonsillectomy Social History Information Source: Office Lives with: Family Smoking Status: Former Smoker Number of Years Smokin Last Time Smoked: 1975 Frequency of Alcohol Use: None Hx Recreational Drug Use: No Drugs: None Hx Prescription Drug Abuse: No Family History Family History: CVA, Hypertension Parental Family History Reviewed: Yes Children Family History Reviewed: Yes Sibling(s) Family History Reviewed.: Yes Medication/Allergy Home Medications: Allopurinol [Zyloprim 300 mg Tablet] 300 mg PO DAILY 06/03/18 Aspirin [Ecotrin 81 mg EC Tablet] 81 mg PO DAILY 06/03/18 Atorvastatin Calcium [Lipitor 40 mg Tablet] 40 mg PO QHS 06/03/18 Clopidogrel Bisulfate [Plavix 75 mg Tablet] 75 mg PO DAILY 06/03/18 Hydralazine HCl [Apresoline 50 mg Tablet] 50 mg PO Q12 06/03/18 Hydrochlorothiazide [Hydrodiuril 25 mg Tablet] 25 mg PO DAILY 06/03/18 Lidocaine [Lidoderm 5% (700 mg) Transdermal Patch] 2 patch TOP DAILY 06/03/18 Lubiprostone [Amitiza 24 Mcg Capsule] 24 mcg PO BID 06/03/18 Metoprolol Succinate [Toprol Xl 25 mg Tab.sr] 25 mg PO DAILY 06/03/18 Pantoprazole Sodium [Protonix] 20 mg PO DAILY 06/03/18 Allergies/Adverse Reactions: TRIP Inhibitors [Trip Inhibitors] Allergy (Severe, Verified 06/03/18 19:41) Angioneurotic Edema duloxetine Adverse Reaction (Verified 06/04/18 05:16) Nightmares ezetimibe [From Zetia] Adverse Reaction (Verified 06/04/18 05:14) Liver damage simvastatin Adverse Reaction (Verified 06/04/18 05:15) Liver damage Review of Systems Constitutional: PRESENT: chills, fever(s), weakness. ABSENT: weight loss Nose, Mouth, and Throat: ABSENT: sore throat Cardiovascular: ABSENT: chest pain, dyspnea on exertion, orthropnea Respiratory: ABSENT: cough, dyspnea Gastrointestinal: PRESENT: diarrhea - amitiza, melena - iron. ABSENT: abdominal pain, constipation, hematochezia, vomiting Genitourinary: ABSENT: dysuria, hematuria Musculoskeletal: PRESENT: back pain - mid Integumentary: ABSENT: rash Neurological: PRESENT: paresthesias - L arm Physical Exam Vital Signs: Temp Pulse Resp BP Pulse Ox 97.9 F 100 14 141/74 H 96 06/03/18 19:33 06/03/18 16:24 06/03/18 19:01 06/03/18 19:01 06/03/18 19:01 Intake & Output 06/02/18 06/03/18 06/04/18 07:59 07:59 07:59 Intake Total 1000 Balance 1000 Weight 250 lb General appearance: PRESENT: no acute distress, obese Eye exam: PRESENT: EOMI. ABSENT: conjunctival injection, scleral icterus Mouth exam: PRESENT: moist Neck exam: PRESENT: tenderness - 45deg. ABSENT: lymphadenopathy, thyromegaly, tracheal deviation Respiratory exam: PRESENT: clear to auscultation beverley Cardiovascular exam: ABSENT: diastolic murmur, irregular rhythm, systolic murmur GI/Abdominal exam: ABSENT: mass, organolmegaly, tenderness Extremities exam: ABSENT: pedal edema Neurological exam: PRESENT: oriented to situation, CN II-XII grossly intact - OK cn2-12 fingerToNose [place]' kitchen lead. PERRL. ABSENT: reflexes normal - no knee jerks, motor sensory deficit, aphasic Psychiatric exam: PRESENT: appropriate affect Results Laboratory Results: 06/03/18 16:03 06/03/18 16:03 Abnormal - 24 hr 06/03/18 06/03/18 06/03/18 16:03 16:03 16:15 RBC 3.75 L Hgb 11.5 L Hct 35.1 L RDW 17.2 H Seg Neutrophils % 81.3 H Lymphocytes % 9.4 L BUN 37 H Creatinine 1.99 H Est GFR ( Amer) 39 L Est GFR (Non-Af Amer) 32 L Glucose 131 H POC Glucose 135 H Alkaline Phosphatase 156 H Urine Protein Urine Urobilinogen Urine Ascorbic Acid 06/03/18 18:55 RBC Hgb Hct RDW Seg Neutrophils % Lymphocytes % BUN Creatinine Est GFR ( Amer) Est GFR (Non-Af Amer) Glucose POC Glucose Alkaline Phosphatase Urine Protein 30 H Urine Urobilinogen 2.0 H Urine Ascorbic Acid 40 H Impressions: Chest X-Ray 06/03/18 15:48 IMPRESSION: Negative chest allowing for low lung volumes. Assessment & Plan - Diagnosis (1) Syncope and collapse Is this a current diagnosis for this admission?: Yes Plan: Since 1980 bp hard to control without orthostasis. (2) Fever Qualifiers: Fever type: unspecified Qualified Code(s): R50.9 - Fever, unspecified Is this a current diagnosis for this admission?: Yes Plan: cultures ceftri. Negative flu does not rule it out. (3) Acute kidney injury Is this a current diagnosis for this admission?: Yes Plan: rehydrated (4) Polycystic kidney, adult type Is this a current diagnosis for this admission?: Yes (5) Coalworker's pneumoconiosis Is this a current diagnosis for this admission?: Yes (6) Obstructive sleep apnea Is this a current diagnosis for this admission?: Yes Plan: off cpap (7) Essential (primary) hypertension Is this a current diagnosis for this admission?: Yes Plan: stop hctz. Hold hydralazine. (8) IHSS (idiopathic hypertrophic subaortic stenosis) Is this a current diagnosis for this admission?: Yes Plan: 2008 gradient 10mmHg (9) Angina of effort Is this a current diagnosis for this admission?: Yes (10) Gastro-esophageal reflux disease without esophagitis Is this a current diagnosis for this admission?: Yes (11) Slow transit constipation Is this a current diagnosis for this admission?: Yes (12) Spinal stenosis of cervical region Is this a current diagnosis for this admission?: Yes Plan: injection pending (13) Idiopathic chronic gout of multiple sites without tophus Is this a current diagnosis for this admission?: Yes (14) Primary osteoarthritis of both knees Is this a current diagnosis for this admission?: Yes (15) Sciatica, right side Is this a current diagnosis for this admission?: Yes (16) Acute infective cystitis Is this a current diagnosis for this admission?: Yes Plan: culture pending (17) Hyperlipemia Qualifiers: Hyperlipidemia type: mixed hyperlipidemia Qualified Code(s): E78.2 - Mixed hyperlipidemia Is this a current diagnosis for this admission?: Yes Plan: ck - Inpatient Certification Based on my medical assessment, after consideration of the patient's comorbidities, presenting symptoms, or acuity I expect that the services needed warrant INPATIENT care.: Yes I certify that my determination is in accordance with my understanding of Medicare's requirements for reasonable and necessary INPATIENT services [42 CFR 412.3e].: Yes Medical Necessity: Failure to Improve With Outpatient Therapy, Significant Comorbidiites Make Outpatient Treatment Too Risky, Need Close Monitoring Due to Risk of Patient Decompensation, Need For IV Fluids, Need For Continuous Telemetry Monitoring, Need for IV Antibiotics, Risk of Complication if Not Cared For in Hospital, Risk of Diagnosis Which Will Require Inpatient Eval/Care/Monitoring
[2018-06-04] MEDS: 1/2 NORMAL SALINE 1,000 ML IV PRN ×2 (08:23→17:43)
[2018-06-04] MEDS: METOPROLOL SUCCINATE 25 MG TAB.SR.24H PO SCH (09:55)
[2018-06-04] MEDS: CLOPIDOGREL BISULFATE 75 MG TABLET PO SCH (09:55)
[2018-06-04] MEDS: LUBIPROSTONE 24 MCG CAPSULE PO SCH (09:55)
[2018-06-04] MEDS: CEFTRIAXONE 2 GM/D5W RTU 2 GM/50 ML RTUPB IV SCH (09:56)
[2018-06-04] MEDS: ENOXAPARIN SODIUM INJ 30 MG/0.3 ML DISP.SYRIN SUBCUT SCH (09:56)
[2018-06-04] MEDS ORDERED: LUBIPROSTONE 24 MCG CAPSULE PO SCH (10:00)
[2018-06-04] MEDS ORDERED: FAMOTIDINE 20 MG TABLET PO SCH (10:00)
[2018-06-04] MEDS ORDERED: LIDOCAINE 5% (700 MG) TRANSDERMAL ADH..PATCH TOP SCH (10:00)
[2018-06-04] MEDS: LIDOCAINE 5% (700 MG) TRANSDERMAL ADH..PATCH TOP SCH (14:07)
[2018-06-04] MEDS: ALLOPURINOL 300 MG TABLET PO SCH (14:13)
[2018-06-04] MEDS: ACETAMINOPHEN 325 MG TABLET PO PRN (16:13)
[2018-06-04] MEDS: PHARMACY COMMUNICATION ORDER MC SCH (21:28)
[2018-06-05] MEDS: 1/2 NORMAL SALINE 1,000 ML IV PRN ×2 (06:04→18:34)
[2018-06-05 07:31] LABS: ANION GAP 9 (5-19); BLOOD UREA NITROGEN 24 mg/dL (7-20); CALCIUM 8.6 mg/dL (8.4-10.2); CARBON DIOXIDE 23 mmol/L (22-30); CHLORIDE 107 mmol/L (98-107); GLUCOSE 92 mg/dL (75-110); POTASSIUM 4.2 mmol/L (3.6-5.0); SODIUM 139.4 mmol/L (137-145)
--- NOTE | 2018-06-05 08:51 | PDOC PROGRESS REPORT ---
Subjective Progress Note for:: 06/05/18 Subjective:: Could not stand without a lot of help because of knee pain. No cough or dysuria. Heartburn. Reason For Visit: POLYCYSTIC KIDNEYS Physical Exam Vital Signs: Temp Pulse Resp BP Pulse Ox 98.3 F 77 16 144/67 H 95 06/04/18 23:30 06/05/18 07:00 06/04/18 23:30 06/04/18 23:30 06/04/18 23:30 Intake & Output 06/04/18 06/05/18 06/06/18 07:59 07:59 07:59 Intake Total 3488 2886 Output Total 735 1520 Balance 2753 1366 Weight 253 lb 4.978 oz 253 lb 4.978 oz General appearance: PRESENT: no acute distress Respiratory exam: PRESENT: clear to auscultation beverley Cardiovascular exam: ABSENT: diastolic murmur, irregular rhythm, systolic murmur GI/Abdominal exam: ABSENT: mass, organolmegaly, tenderness Extremities exam: ABSENT: pedal edema Neurological exam: PRESENT: oriented to situation Psychiatric exam: PRESENT: depressed Results Laboratory Results: 06/03/18 16:03 06/05/18 06:18 06/05/18 06:18 Sodium 139.4 Potassium 4.2 Chloride 107 Carbon Dioxide 23 Anion Gap 9 BUN 24 H Creatinine 1.04 Est GFR ( Amer) > 60 Est GFR (Non-Af Amer) > 60 Glucose 92 Calcium 8.6 06/04/18 05:19 Creatine Kinase 327 H Impressions: Chest X-Ray 06/03/18 15:48 IMPRESSION: Negative chest allowing for low lung volumes. Assessment & Plan - Diagnosis (1) Primary osteoarthritis of both knees Is this a current diagnosis for this admission?: Yes Plan: physical therapy (2) Syncope and collapse Is this a current diagnosis for this admission?: Yes Plan: orthostasis gone (3) Fever Qualifiers: Fever type: unspecified Qualified Code(s): R50.9 - Fever, unspecified Is this a current diagnosis for this admission?: Yes Plan: cultures pending. Continue ceftri (4) Polycystic kidney, adult type Is this a current diagnosis for this admission?: Yes (5) Coalworker's pneumoconiosis Is this a current diagnosis for this admission?: Yes (6) Obstructive sleep apnea Is this a current diagnosis for this admission?: Yes (7) Essential (primary) hypertension Is this a current diagnosis for this admission?: Yes (8) IHSS (idiopathic hypertrophic subaortic stenosis) Is this a current diagnosis for this admission?: Yes (9) Angina of effort Is this a current diagnosis for this admission?: Yes (10) Gastro-esophageal reflux disease without esophagitis Is this a current diagnosis for this admission?: Yes Plan: switch to prevacid (11) Slow transit constipation Is this a current diagnosis for this admission?: Yes (12) Spinal stenosis of cervical region Is this a current diagnosis for this admission?: Yes (13) Idiopathic chronic gout of multiple sites without tophus Is this a current diagnosis for this admission?: Yes (14) Sciatica, right side Is this a current diagnosis for this admission?: Yes (15) Acute infective cystitis Is this a current diagnosis for this admission?: Yes (16) Hyperlipemia Qualifiers: Hyperlipidemia type: mixed hyperlipidemia Qualified Code(s): E78.2 - Mixed hyperlipidemia Is this a current diagnosis for this admission?: Yes (17) Acute kidney injury Is this a current diagnosis for this admission?: Yes Plan: bun24 cr1 - Inpatient Certification Medical Necessity: Failure to Improve With Outpatient Therapy, Significant Comorbidiites Make Outpatient Treatment Too Risky, Need Close Monitoring Due to Risk of Patient Decompensation, Need For IV Fluids, Need For Continuous Telemetry Monitoring, Need for IV Antibiotics, Risk of Complication if Not Cared For in Hospital, Risk of Diagnosis Which Will Require Inpatient Eval/Care/Monitoring
[2018-06-05] MEDS: CEFTRIAXONE 2 GM/D5W RTU 2 GM/50 ML RTUPB IV SCH (09:58)
[2018-06-05] MEDS: ENOXAPARIN SODIUM INJ 30 MG/0.3 ML DISP.SYRIN SUBCUT SCH (09:59)
[2018-06-05] MEDS: LUBIPROSTONE 24 MCG CAPSULE PO SCH (10:01)
[2018-06-05] MEDS: CLOPIDOGREL BISULFATE 75 MG TABLET PO SCH (10:01)
[2018-06-05] MEDS: LIDOCAINE 5% (700 MG) TRANSDERMAL ADH..PATCH TOP SCH (10:01)
[2018-06-05] MEDS: METOPROLOL SUCCINATE 25 MG TAB.SR.24H PO SCH (10:02)
[2018-06-05] MEDS: ALLOPURINOL 300 MG TABLET PO SCH (10:02)
[2018-06-05] MEDS: LANSOPRAZOLE 30 MG TAB.RAP.DR PO SCH (10:02)
[2018-06-05] MEDS: ACETAMINOPHEN 325 MG TABLET PO PRN (15:47)
[2018-06-05] MEDS: PHARMACY COMMUNICATION ORDER MC SCH (21:36)
[2018-06-06] MEDS: 1/2 NORMAL SALINE 1,000 ML IV PRN (05:45)
[2018-06-06] MEDS: LANSOPRAZOLE 30 MG TAB.RAP.DR PO SCH (05:46)
[2018-06-06 06:18] LABS: ANION GAP 10 (5-19); BLOOD UREA NITROGEN 19 mg/dL (7-20); CALCIUM 8.6 mg/dL (8.4-10.2); CARBON DIOXIDE 22 mmol/L (22-30); CHLORIDE 107 mmol/L (98-107); GLUCOSE 102 mg/dL (75-110); POTASSIUM 4.1 mmol/L (3.6-5.0); SODIUM 139.2 mmol/L (137-145)
[2018-06-06] MEDS: LUBIPROSTONE 24 MCG CAPSULE PO SCH (11:13)
[2018-06-06] MEDS: ALLOPURINOL 300 MG TABLET PO SCH (11:13)
[2018-06-06] MEDS: METOPROLOL SUCCINATE 25 MG TAB.SR.24H PO SCH (11:13)
[2018-06-06] MEDS: LIDOCAINE 5% (700 MG) TRANSDERMAL ADH..PATCH TOP SCH (11:13)
[2018-06-06] MEDS: HYDRALAZINE HCL 50 MG TABLET PO SCH ×2 (11:13→21:16)
[2018-06-06] MEDS: CLOPIDOGREL BISULFATE 75 MG TABLET PO SCH (11:13)
[2018-06-06] MEDS: CEFTRIAXONE 2 GM/D5W RTU 2 GM/50 ML RTUPB IV SCH (11:14)
[2018-06-06] MEDS: ENOXAPARIN SODIUM INJ 30 MG/0.3 ML DISP.SYRIN SUBCUT SCH (11:15)
--- NOTE | 2018-06-06 12:16 | PDOC PROGRESS REPORT ---
Subjective Progress Note for:: 06/06/18 Subjective:: no cough dysuria Reason For Visit: POLYCYSTIC KIDNEYS Physical Exam Vital Signs: Temp Pulse Resp BP Pulse Ox 99.0 F 81 17 160/71 H 98 06/06/18 11:37 06/06/18 11:37 06/06/18 11:37 06/06/18 11:37 06/06/18 11:37 Intake & Output 06/05/18 06/06/18 06/07/18 07:59 07:59 07:59 Intake Total 2886 3027 Output Total 1520 1625 Balance 1366 1402 Weight 253 lb 4.978 oz 255 lb 15.307 oz General appearance: PRESENT: no acute distress Respiratory exam: PRESENT: clear to auscultation beverley Cardiovascular exam: ABSENT: diastolic murmur, irregular rhythm, systolic murmur GI/Abdominal exam: ABSENT: mass, organolmegaly, tenderness Extremities exam: ABSENT: pedal edema Neurological exam: PRESENT: oriented to situation Psychiatric exam: PRESENT: appropriate affect Results Laboratory Results: 06/03/18 16:03 06/06/18 05:33 06/06/18 05:33 Sodium 139.2 Potassium 4.1 Chloride 107 Carbon Dioxide 22 Anion Gap 10 BUN 19 Creatinine 0.97 Est GFR ( Amer) > 60 Est GFR (Non-Af Amer) > 60 Glucose 102 Calcium 8.6 Impressions: Chest X-Ray 06/03/18 15:48 IMPRESSION: Negative chest allowing for low lung volumes. Assessment & Plan - Diagnosis (1) Primary osteoarthritis of both knees Is this a current diagnosis for this admission?: Yes Plan: PT 5 walker steps. Suggested rehab. (2) Syncope and collapse Is this a current diagnosis for this admission?: Yes Plan: bp up. Resumed hydralazine. (3) Fever Qualifiers: Fever type: unspecified Qualified Code(s): R50.9 - Fever, unspecified Is this a current diagnosis for this admission?: Yes Plan: Tmax 100.4. Urine growing 30k gram+ chains. (4) Polycystic kidney, adult type Is this a current diagnosis for this admission?: Yes (5) Coalworker's pneumoconiosis Is this a current diagnosis for this admission?: Yes (6) Obstructive sleep apnea Is this a current diagnosis for this admission?: Yes (7) Essential (primary) hypertension Is this a current diagnosis for this admission?: Yes (8) IHSS (idiopathic hypertrophic subaortic stenosis) Is this a current diagnosis for this admission?: Yes (9) Angina of effort Is this a current diagnosis for this admission?: Yes (10) Gastro-esophageal reflux disease without esophagitis Is this a current diagnosis for this admission?: Yes (11) Slow transit constipation Is this a current diagnosis for this admission?: Yes (12) Spinal stenosis of cervical region Is this a current diagnosis for this admission?: Yes (13) Idiopathic chronic gout of multiple sites without tophus Is this a current diagnosis for this admission?: Yes (14) Sciatica, right side Is this a current diagnosis for this admission?: Yes (15) Acute infective cystitis Is this a current diagnosis for this admission?: Yes (16) Hyperlipemia Qualifiers: Hyperlipidemia type: mixed hyperlipidemia Qualified Code(s): E78.2 - Mixed hyperlipidemia Is this a current diagnosis for this admission?: Yes (17) Acute kidney injury Is this a current diagnosis for this admission?: Yes
[2018-06-06] MEDS: PHARMACY COMMUNICATION ORDER MC SCH (21:19)
[2018-06-07] MEDS: LANSOPRAZOLE 30 MG TAB.RAP.DR PO SCH (05:51)
[2018-06-07] MEDS ORDERED: AMPICILLIN SOD INJ 2 GM VIAL ONE (05:57)
[2018-06-07] MEDS: AMPICILLIN SODIUM 1 GM in NORMAL SALINE 50 ML IV SCH ×3 (06:16→17:58)
--- NOTE | 2018-06-07 06:56 | PDOC PROGRESS REPORT ---
Subjective Progress Note for:: 06/07/18 Subjective:: neck pain. Using lidocaine patch. Reason For Visit: POLYCYSTIC KIDNEYS Physical Exam Vital Signs: Temp Pulse Resp BP Pulse Ox 98.7 F 91 19 153/72 H 96 06/07/18 04:00 06/07/18 04:00 06/07/18 04:00 06/07/18 04:00 06/07/18 04:00 Intake & Output 06/05/18 06/06/18 06/07/18 07:59 07:59 07:59 Intake Total 2886 3027 458 Output Total 1520 1625 1070 Balance 1366 1402 -612 Weight 253 lb 4.978 oz 255 lb 15.307 oz General appearance: PRESENT: no acute distress Respiratory exam: PRESENT: clear to auscultation beverley Cardiovascular exam: ABSENT: diastolic murmur, irregular rhythm, systolic murmur GI/Abdominal exam: ABSENT: mass, organolmegaly, tenderness Extremities exam: PRESENT: pedal edema - trace Neurological exam: PRESENT: oriented to situation Psychiatric exam: PRESENT: appropriate affect Results Laboratory Results: 06/03/18 16:03 06/06/18 05:33 06/03/18 18:55 Catheterized Urine Urine Culture - Final Enterococcus Faecalis(Group D) 06/04/18 05:19 Creatine Kinase 327 H Impressions: Chest X-Ray 06/03/18 15:48 IMPRESSION: Negative chest allowing for low lung volumes. Assessment & Plan - Diagnosis (1) Acute infective cystitis Is this a current diagnosis for this admission?: Yes Plan: 30k enterococcus fecalis sensitive amp. Switched to amp. (2) Primary osteoarthritis of both knees Is this a current diagnosis for this admission?: Yes Plan: up with help (3) Syncope and collapse Is this a current diagnosis for this admission?: Yes (4) Fever Qualifiers: Fever type: unspecified Qualified Code(s): R50.9 - Fever, unspecified Is this a current diagnosis for this admission?: Yes Plan: [id number] (5) Polycystic kidney, adult type Is this a current diagnosis for this admission?: Yes (6) Coalworker's pneumoconiosis Is this a current diagnosis for this admission?: Yes (7) Obstructive sleep apnea Is this a current diagnosis for this admission?: Yes (8) Essential (primary) hypertension Is this a current diagnosis for this admission?: Yes (9) IHSS (idiopathic hypertrophic subaortic stenosis) Is this a current diagnosis for this admission?: Yes (10) Angina of effort Is this a current diagnosis for this admission?: Yes (11) Gastro-esophageal reflux disease without esophagitis Is this a current diagnosis for this admission?: Yes (12) Slow transit constipation Is this a current diagnosis for this admission?: Yes (13) Spinal stenosis of cervical region Is this a current diagnosis for this admission?: Yes (14) Idiopathic chronic gout of multiple sites without tophus Is this a current diagnosis for this admission?: Yes (15) Sciatica, right side Is this a current diagnosis for this admission?: Yes (16) Hyperlipemia Qualifiers: Hyperlipidemia type: mixed hyperlipidemia Qualified Code(s): E78.2 - Mixed hyperlipidemia Is this a current diagnosis for this admission?: Yes (17) Acute kidney injury Is this a current diagnosis for this admission?: Yes
[2018-06-07] MEDS: HYDRALAZINE HCL 50 MG TABLET PO SCH ×2 (09:28→21:19)
[2018-06-07] MEDS: CLOPIDOGREL BISULFATE 75 MG TABLET PO SCH (09:28)
[2018-06-07] MEDS: ACETAMINOPHEN 325 MG TABLET PO PRN ×3 (09:28→23:38)
[2018-06-07] MEDS: METOPROLOL SUCCINATE 25 MG TAB.SR.24H PO SCH (09:28)
[2018-06-07] MEDS: LUBIPROSTONE 24 MCG CAPSULE PO SCH (09:28)
[2018-06-07] MEDS: LIDOCAINE 5% (700 MG) TRANSDERMAL ADH..PATCH TOP SCH (09:30)
[2018-06-07] MEDS: ALLOPURINOL 300 MG TABLET PO SCH (09:30)
[2018-06-07] MEDS: ENOXAPARIN SODIUM INJ 30 MG/0.3 ML DISP.SYRIN SUBCUT SCH (09:31)
--- NOTE | 2018-06-07 17:49 | EKG REPORT ---
SEVERITY:- ABNORMAL ECG - SINUS RHYTHM MULTIPLE ATRIAL PREMATURE COMPLEXES : Confirmed by: Satinder Banks MD 07-Jun-2018 17:48:14
[2018-06-07] MEDS: PHARMACY COMMUNICATION ORDER MC SCH (21:21)
[2018-06-08] MEDS: AMPICILLIN SODIUM 1 GM in NORMAL SALINE 50 ML IV SCH ×4 (00:52→17:24)
[2018-06-08] MEDS: LANSOPRAZOLE 30 MG TAB.RAP.DR PO SCH (06:01)
--- NOTE | 2018-06-08 07:13 | PDOC PROGRESS REPORT ---
Subjective Progress Note for:: 06/08/18 Subjective:: No complaints. Hip surgery was not scheduled yet. More clearances needed from cardiology. wants home PT. Nurses & he feel she may not be able to handle him. Reason For Visit: POLYCYSTIC KIDNEYS Physical Exam Vital Signs: Temp Pulse Resp BP Pulse Ox 98.6 F 77 17 159/75 H 98 06/08/18 00:00 06/08/18 02:00 06/08/18 00:00 06/08/18 00:00 06/08/18 00:00 Intake & Output 06/06/18 06/07/18 06/08/18 07:59 07:59 07:59 Intake Total 3027 658 584 Output Total 1625 1420 440 Balance 1402 -762 144 Weight 255 lb 15.307 oz 251 lb 12.286 oz General appearance: PRESENT: no acute distress Respiratory exam: PRESENT: clear to auscultation beverley Cardiovascular exam: ABSENT: diastolic murmur, irregular rhythm, systolic murmur GI/Abdominal exam: ABSENT: mass, organolmegaly, tenderness Extremities exam: ABSENT: pedal edema Neurological exam: PRESENT: oriented to situation Psychiatric exam: PRESENT: appropriate affect Results Laboratory Results: 06/03/18 16:03 06/06/18 05:33 Impressions: Chest X-Ray 06/03/18 15:48 IMPRESSION: Negative chest allowing for low lung volumes. Assessment & Plan - Diagnosis (1) Acute infective cystitis Is this a current diagnosis for this admission?: Yes Plan: day2 amp (2) Primary osteoarthritis of both knees Is this a current diagnosis for this admission?: Yes (3) Syncope and collapse Is this a current diagnosis for this admission?: Yes (4) Fever Qualifiers: Fever type: unspecified Qualified Code(s): R50.9 - Fever, unspecified Is this a current diagnosis for this admission?: Yes Plan: [id number] (5) Polycystic kidney, adult type Is this a current diagnosis for this admission?: Yes (6) Coalworker's pneumoconiosis Is this a current diagnosis for this admission?: Yes (7) Obstructive sleep apnea Is this a current diagnosis for this admission?: Yes (8) Essential (primary) hypertension Is this a current diagnosis for this admission?: Yes Plan: still up. Added amlodipine. Had angioedema on rodolfo in past. (9) IHSS (idiopathic hypertrophic subaortic stenosis) Is this a current diagnosis for this admission?: Yes (10) Angina of effort Is this a current diagnosis for this admission?: Yes (11) Gastro-esophageal reflux disease without esophagitis Is this a current diagnosis for this admission?: Yes (12) Slow transit constipation Is this a current diagnosis for this admission?: Yes Plan: will need amitiza with amlodipine (13) Spinal stenosis of cervical region Is this a current diagnosis for this admission?: Yes (14) Idiopathic chronic gout of multiple sites without tophus Is this a current diagnosis for this admission?: Yes (15) Sciatica, right side Is this a current diagnosis for this admission?: Yes (16) Hyperlipemia Qualifiers: Hyperlipidemia type: mixed hyperlipidemia Qualified Code(s): E78.2 - Mixed hyperlipidemia Is this a current diagnosis for this admission?: Yes (17) Acute kidney injury Is this a current diagnosis for this admission?: Yes
[2018-06-08] MEDS: HYDRALAZINE HCL 50 MG TABLET PO SCH ×2 (10:29→21:57)
[2018-06-08] MEDS: LUBIPROSTONE 24 MCG CAPSULE PO SCH (10:29)
[2018-06-08] MEDS: CLOPIDOGREL BISULFATE 75 MG TABLET PO SCH (10:29)
[2018-06-08] MEDS: METOPROLOL SUCCINATE 25 MG TAB.SR.24H PO SCH (10:30)
[2018-06-08] MEDS: ALLOPURINOL 300 MG TABLET PO SCH (10:30)
[2018-06-08] MEDS: ENOXAPARIN SODIUM INJ 30 MG/0.3 ML DISP.SYRIN SUBCUT SCH (10:30)
[2018-06-08] MEDS: AMLODIPINE BESYLATE 10 MG TABLET PO SCH (10:30)
[2018-06-08] MEDS: LIDOCAINE 5% (700 MG) TRANSDERMAL ADH..PATCH TOP SCH (10:31)
[2018-06-08] MEDS: ACETAMINOPHEN 325 MG TABLET PO PRN (21:57)
[2018-06-08] MEDS: PHARMACY COMMUNICATION ORDER MC SCH (21:58)
[2018-06-09] MEDS: AMPICILLIN SODIUM 1 GM in NORMAL SALINE 50 ML IV SCH ×5 (00:05→23:34)
[2018-06-09] MEDS: LANSOPRAZOLE 30 MG TAB.RAP.DR PO SCH (05:50)
--- NOTE | 2018-06-09 07:11 | PDOC CONSULTATION ---
Consultation Consult Date: 06/09/18 Consult reason:: 78-year-old black male who is tentatively been scheduled for joint replacement which was delayed pending cardiac clearance and VA authorization. History of Present Illness Admission Date/PCP: 06/03/18 19:30 LORENZO KHAN MD History of Present Illness: ZAIRA GOOD is a 78 year old male Progressive lower extremity pain and functional disability secondary osteoart hritis. Past Medical History Cardiac Medical History: Reports: Coronary Artery Disease - 2011 stend Lad, Hyperlipidema, Hypertension - meds Denies: Atrial Fibrillation, Congestive Heart Failure, Myocardial Infarction, Peripheral Vascular Disease, Pulmonary Embolism, Heart Murmur Pulmonary Medical History: Reports: Pneumonia - 1944, Sleep Apnea - cpap doesn't use, Other - coal workers pneumoconiosis Denies: Asthma, Bronchitis, Chronic Obstructive Pulmonary Disease (COPD), Respiratory Failure, Tuberculosis EENT Medical History: Reports: None Neurological Medical History: Reports: Seizures - 3 in 2009 none since. Had eeg by [facility] Endocrine Medical History: Denies: Diabetes Mellitus Type 2, Hyperthyroidism, Hypothyroidism Renal/ Medical History: Reports: Chronic Kidney Disease, Other - [id number] Denies: End Stage Renal Disease Malignancy Medical History: Reports: None Denies: Leukemia, Lung Cancer GI Medical History: Reports: Gastroesophageal Reflux Disease, Hiatal Hernia Denies: Cirrhosis, Crohn's Disease Musculoskeltal Medical History: Reports: Arthritis - all over, Gout Denies: Fibromyalgia Skin Medical History: Reports: None Psychiatric Medical History: Denies: Bipolar Disorder, Dementia, Depression, Post Traumatic Stress Disorder Traumatic Medical History: Reports: None Hematology: Reports: Anemia Denies: Hemophilia, Sickle Cell Disease Infectious Medical History: Reports: None Denies: HIV Past Surgical History Past Surgical History: Reports: Cardiac Catheterization, Cholecystectomy, Coronary Stent - [facility] Denies: Appendectomy, Colostomy, Coronary Artery Bypass Graft, Gastric Bypass Surgery, Herniorrhaphy, Pacemaker, Tonsillectomy Social History Information Source: Patient, [facility] Office, [facility] Records Lives with: Family Smoking Status: Former Smoker Number of Years Smokin Last Time Smoked: 1975 Frequency of Alcohol Use: None Hx Recreational Drug Use: No Drugs: None Hx Prescription Drug Abuse: No - Advance Directive Resuscitation Status: Full Code Family History Family History: CVA, Hypertension Parental Family History Reviewed: No Children Family History Reviewed: No Sibling(s) Family History Reviewed.: No Medication/Allergy Home Medications: Allopurinol [Zyloprim 300 mg Tablet] 300 mg PO DAILY 06/03/18 Aspirin [Ecotrin 81 mg EC Tablet] 81 mg PO DAILY 06/03/18 Atorvastatin Calcium [Lipitor 40 mg Tablet] 40 mg PO QHS 06/03/18 Clopidogrel Bisulfate [Plavix 75 mg Tablet] 75 mg PO DAILY 06/03/18 Hydralazine HCl [Apresoline 50 mg Tablet] 50 mg PO Q12 06/03/18 Hydrochlorothiazide [Hydrodiuril 25 mg Tablet] 25 mg PO DAILY 06/03/18 Lidocaine [Lidoderm 5% (700 mg) Transdermal Patch] 2 patch TOP DAILY 06/03/18 Lubiprostone [Amitiza 24 Mcg Capsule] 24 mcg PO BID 06/03/18 Metoprolol Succinate [Toprol Xl 25 mg Tab.sr] 25 mg PO DAILY 06/03/18 Pantoprazole Sodium [Protonix] 20 mg PO DAILY 06/03/18 Allergies/Adverse Reactions: TRIP Inhibitors [Trip Inhibitors] Allergy (Severe, Verified 06/03/18 19:41) Angioneurotic Edema duloxetine Adverse Reaction (Verified 06/04/18 05:16) Nightmares ezetimibe [From Zetia] Adverse Reaction (Verified 06/04/18 05:14) Liver damage simvastatin Adverse Reaction (Verified 06/04/18 05:15) Liver damage Review of Systems All systems: as per PMH Physical Exam Vital Signs: Temp Pulse Resp BP Pulse Ox 36.8 C 84 18 152/74 H 96 06/09/18 04:00 06/09/18 04:00 06/09/18 04:00 06/09/18 04:00 06/09/18 04:00 Intake & Output 06/08/18 06/09/18 06/10/18 06:59 06:59 06:59 Intake Total 584 387 Output Total 440 280 Balance 144 107 Weight 114.2 kg Physical Exam: Overweight middle-aged black male lying in bed in minor discomfort Results Laboratory Results: 06/03/18 16:03 06/06/18 05:33 06/03/18 16:25 Blood Blood Culture - Final NO GROWTH IN 5 DAYS 06/03/18 16:03 Blood Blood Culture - Final NO GROWTH IN 5 DAYS 06/04/18 05:19 Creatine Kinase 327 H Impressions: Chest X-Ray 06/03/18 15:48 IMPRESSION: Negative chest allowing for low lung volumes. Status: Imported from PACS Assessment & Plan - Diagnosis (1) Primary osteoarthritis of both knees Is this a current diagnosis for this admission?: Yes Plan: We will check on cardiac clearance at the office and then reinitiate VA authorization - Time Time Spent: 50 to 70 Minutes Anticipated discharge: Other Within: Other
--- NOTE | 2018-06-09 08:04 | PDOC PROGRESS REPORT ---
Subjective Progress Note for:: 06/09/18 Subjective:: walkered into [facility]ney Reason For Visit: POLYCYSTIC KIDNEYS Physical Exam Vital Signs: Temp Pulse Resp BP Pulse Ox 98.2 F 84 18 152/74 H 96 06/09/18 04:00 06/09/18 04:00 06/09/18 04:00 06/09/18 04:00 06/09/18 04:00 Intake & Output 06/07/18 06/08/18 06/09/18 07:59 07:59 07:59 Intake Total 658 584 737 Output Total 1420 440 780 Balance -762 144 -43 Weight 251 lb 12.286 oz 251 lb 12.286 oz General appearance: PRESENT: no acute distress Respiratory exam: PRESENT: clear to auscultation beverley Cardiovascular exam: ABSENT: diastolic murmur, irregular rhythm, systolic murmur GI/Abdominal exam: ABSENT: mass, organolmegaly, tenderness Extremities exam: ABSENT: pedal edema Neurological exam: PRESENT: oriented to situation Psychiatric exam: PRESENT: appropriate affect Results Laboratory Results: 06/03/18 16:03 06/06/18 05:33 06/03/18 16:25 Blood Blood Culture - Final NO GROWTH IN 5 DAYS 06/03/18 16:03 Blood Blood Culture - Final NO GROWTH IN 5 DAYS Impressions: Chest X-Ray 06/03/18 15:48 IMPRESSION: Negative chest allowing for low lung volumes. Assessment & Plan - Diagnosis (1) Acute infective cystitis Is this a current diagnosis for this admission?: Yes Plan: d3 amp. [id number]. Cysts make penetration harder. Continue IV amp 1g q6h. (2) Primary osteoarthritis of both knees Is this a current diagnosis for this admission?: Yes Plan: Dr oColey told him [place] has to approve orthopedic surgery after cardiac clearance. (3) Syncope and collapse Is this a current diagnosis for this admission?: Yes (4) Fever Qualifiers: Fever type: unspecified Qualified Code(s): R50.9 - Fever, unspecified Is this a current diagnosis for this admission?: Yes (5) Polycystic kidney, adult type Is this a current diagnosis for this admission?: Yes (6) Coalworker's pneumoconiosis Is this a current diagnosis for this admission?: Yes (7) Obstructive sleep apnea Is this a current diagnosis for this admission?: Yes (8) Essential (primary) hypertension Is this a current diagnosis for this admission?: Yes (9) IHSS (idiopathic hypertrophic subaortic stenosis) Is this a current diagnosis for this admission?: Yes (10) Angina of effort Is this a current diagnosis for this admission?: Yes (11) Gastro-esophageal reflux disease without esophagitis Is this a current diagnosis for this admission?: Yes (12) Slow transit constipation Is this a current diagnosis for this admission?: Yes (13) Spinal stenosis of cervical region Is this a current diagnosis for this admission?: Yes (14) Idiopathic chronic gout of multiple sites without tophus Is this a current diagnosis for this admission?: Yes Plan: 2017 uric acid 3.7 on allopurinol. (15) Sciatica, right side Is this a current diagnosis for this admission?: Yes Plan: did not tolerate [id number],nausea or [id number]=[id number]. (16) Hyperlipemia Qualifiers: Hyperlipidemia type: mixed hyperlipidemia Qualified Code(s): E78.2 - Mixed hyperlipidemia Is this a current diagnosis for this admission?: Yes (17) Acute kidney injury Is this a current diagnosis for this admission?: Yes
[2018-06-09] MEDS: HYDRALAZINE HCL 50 MG TABLET PO SCH ×2 (10:51→21:55)
[2018-06-09] MEDS: LIDOCAINE 5% (700 MG) TRANSDERMAL ADH..PATCH TOP SCH (10:51)
[2018-06-09] MEDS: AMLODIPINE BESYLATE 10 MG TABLET PO SCH (10:52)
[2018-06-09] MEDS: ALLOPURINOL 300 MG TABLET PO SCH (10:52)
[2018-06-09] MEDS: LUBIPROSTONE 24 MCG CAPSULE PO SCH (10:52)
[2018-06-09] MEDS: METOPROLOL SUCCINATE 25 MG TAB.SR.24H PO SCH (10:52)
[2018-06-09] MEDS: CLOPIDOGREL BISULFATE 75 MG TABLET PO SCH (10:52)
[2018-06-09] MEDS: ENOXAPARIN SODIUM INJ 30 MG/0.3 ML DISP.SYRIN SUBCUT SCH (10:53)
[2018-06-09] MEDS: ACETAMINOPHEN 325 MG TABLET PO PRN ×2 (12:24→21:56)
[2018-06-09] MEDS: LATANOPROST 0.005% OPH SOLN 2.5 ML OU SCH (21:57)
[2018-06-09] MEDS: PHARMACY COMMUNICATION ORDER MC SCH (21:57)
[2018-06-10] MEDS ORDERED: COLCHICINE 0.6 MG TABLET PO ONE (06:52)
--- NOTE | 2018-06-10 06:52 | PDOC PROGRESS REPORT ---
Subjective Progress Note for:: 06/10/18 Subjective:: 1d new diffuse R wrist pain radiating to fingers without injury. Could not lean on walker. Reason For Visit: POLYCYSTIC KIDNEYS Physical Exam Vital Signs: Temp Pulse Resp BP Pulse Ox 98.9 F 88 19 147/56 H 96 06/10/18 03:14 06/10/18 03:14 06/10/18 03:14 06/10/18 03:14 06/10/18 03:14 Intake & Output 06/08/18 06/09/18 06/10/18 07:59 07:59 07:59 Intake Total 584 737 975 Output Total 722 689 1169 Balance 144 -43 -60 Weight 251 lb 12.286 oz 251 lb 12.286 oz 258 lb 6.108 oz General appearance: PRESENT: mild distress Respiratory exam: PRESENT: clear to auscultation beverley Cardiovascular exam: ABSENT: diastolic murmur, irregular rhythm, systolic murmur GI/Abdominal exam: ABSENT: mass, organolmegaly, tenderness Extremities exam: PRESENT: tenderness - R wrist volar > dorsal with movement & palpation. Tinels+ to thumb. No heat swelling redness.. ABSENT: joint swelling, pedal edema Neurological exam: PRESENT: oriented to situation Psychiatric exam: PRESENT: anxious Results Laboratory Results: 06/03/18 16:03 06/06/18 05:33 Impressions: Chest X-Ray 06/03/18 15:48 IMPRESSION: Negative chest allowing for low lung volumes. Assessment & Plan - Diagnosis (1) Acute infective cystitis Is this a current diagnosis for this admission?: Yes (2) Primary osteoarthritis of both knees Is this a current diagnosis for this admission?: Yes (3) Syncope and collapse Is this a current diagnosis for this admission?: Yes (4) Fever Qualifiers: Fever type: unspecified Qualified Code(s): R50.9 - Fever, unspecified Is this a current diagnosis for this admission?: Yes (5) Polycystic kidney, adult type Is this a current diagnosis for this admission?: Yes (6) Coalworker's pneumoconiosis Is this a current diagnosis for this admission?: Yes (7) Obstructive sleep apnea Is this a current diagnosis for this admission?: Yes (8) Essential (primary) hypertension Is this a current diagnosis for this admission?: Yes (9) IHSS (idiopathic hypertrophic subaortic stenosis) Is this a current diagnosis for this admission?: Yes (10) Angina of effort Is this a current diagnosis for this admission?: Yes (11) Gastro-esophageal reflux disease without esophagitis Is this a current diagnosis for this admission?: Yes (12) Slow transit constipation Is this a current diagnosis for this admission?: Yes (13) Spinal stenosis of cervical region Is this a current diagnosis for this admission?: Yes (14) Idiopathic chronic gout of multiple sites without tophus Is this a current diagnosis for this admission?: Yes Plan: uric acid. Xray R wrist. Continue allopurinol. Colcrys. (15) Sciatica, right side Is this a current diagnosis for this admission?: Yes (16) Hyperlipemia Qualifiers: Hyperlipidemia type: mixed hyperlipidemia Qualified Code(s): E78.2 - Mixed hyperlipidemia Is this a current diagnosis for this admission?: Yes (17) Acute kidney injury Is this a current diagnosis for this admission?: Yes - Inpatient Certification Medical Necessity: Failure to Improve With Outpatient Therapy, Significant Comorbidiites Make Outpatient Treatment Too Risky, Need Close Monitoring Due to Risk of Patient Decompensation, Need for IV Antibiotics, Risk of Complication if Not Cared For in Hospital, Risk of Diagnosis Which Will Require Inpatient Eval/Care/Monitoring
[2018-06-10] MEDS: LANSOPRAZOLE 30 MG TAB.RAP.DR PO SCH (07:10)
[2018-06-10] MEDS: AMPICILLIN SODIUM 1 GM in NORMAL SALINE 50 ML IV SCH ×3 (07:11→17:50)
--- NOTE | 2018-06-10 09:28 | RADIOLOGY REPORT (SQ) ---
EXAM DESCRIPTION: WRIST RIGHT 3 VIEWS COMPLETED DATE/TIME: 06/10/2018 8:52 am REASON FOR STUDY: acute diffuse wrist pain tenderness COMPARISON: None. NUMBER OF VIEWS: Three views. TECHNIQUE: AP, lateral, and oblique radiographic images acquired of the right wrist. LIMITATIONS: None. FINDINGS: MINERALIZATION: Normal. BONES: No acute fracture or dislocation. No worrisome bone lesions. Normal alignment. SOFT TISSUES: Diffuse soft tissue swelling. No foreign body. Arterial vascular calcifications OTHER: Osteoarthritis at the 1st carpometacarpal joint with joint space narrowing and bony spurring. IMPRESSION: No acute fracture or malalignment. TECHNICAL DOCUMENTATION: JOB ID: [id number] [employer]- All Rights Reserved Reading location - IP/workstation name: [email or web address]
[2018-06-10] MEDS: HYDRALAZINE HCL 50 MG TABLET PO SCH ×2 (09:59→21:51)
[2018-06-10] MEDS: LUBIPROSTONE 24 MCG CAPSULE PO SCH (09:59)
[2018-06-10] MEDS: AMLODIPINE BESYLATE 10 MG TABLET PO SCH (10:00)
[2018-06-10] MEDS: CLOPIDOGREL BISULFATE 75 MG TABLET PO SCH (10:00)
[2018-06-10] MEDS: LIDOCAINE 5% (700 MG) TRANSDERMAL ADH..PATCH TOP SCH (10:00)
[2018-06-10] MEDS: ALLOPURINOL 300 MG TABLET PO SCH (10:00)
[2018-06-10] MEDS: ENOXAPARIN SODIUM INJ 30 MG/0.3 ML DISP.SYRIN SUBCUT SCH (10:01)
[2018-06-10] MEDS: POLYVINYL ALCOHOL 1.4% OPH SOLN 15 ML OU SCH ×3 (10:01→17:50)
[2018-06-10] MEDS: METOPROLOL SUCCINATE 25 MG TAB.SR.24H PO SCH (10:03)
[2018-06-10] MEDS: LATANOPROST 0.005% OPH SOLN 2.5 ML OU SCH (21:52)
[2018-06-10] MEDS: PHARMACY COMMUNICATION ORDER MC SCH (21:53)
[2018-06-11] MEDS: AMPICILLIN SODIUM 1 GM in NORMAL SALINE 50 ML IV SCH ×4 (01:28→18:26)
[2018-06-11] MEDS: ACETAMINOPHEN 325 MG TABLET PO PRN (03:50)
[2018-06-11] MEDS: LANSOPRAZOLE 30 MG TAB.RAP.DR PO SCH (05:38)
--- NOTE | 2018-06-11 07:55 | PDOC PROGRESS REPORT ---
Subjective Progress Note for:: 06/11/18 Subjective:: less R wrist pain. wants him in [facility]. Reason For Visit: POLYCYSTIC KIDNEYS Physical Exam Vital Signs: Temp Pulse Resp BP Pulse Ox 100.0 F 73 16 157/57 H 95 06/10/18 23:52 06/11/18 07:00 06/10/18 23:52 06/10/18 23:52 06/10/18 23:52 Intake & Output 06/09/18 06/10/18 06/11/18 07:59 07:59 07:59 Intake Total 737 1025 318 Output Total 780 1035 Balance -43 -10 318 Weight 251 lb 12.286 oz 258 lb 6.108 oz 252 lb 3.341 oz General appearance: PRESENT: no acute distress Respiratory exam: PRESENT: clear to auscultation beverley Cardiovascular exam: ABSENT: diastolic murmur, irregular rhythm, systolic murmur GI/Abdominal exam: ABSENT: mass, organolmegaly, tenderness Extremities exam: PRESENT: pedal edema - trace Musculoskeletal exam: PRESENT: tenderness - now confined to R1cmc Neurological exam: PRESENT: oriented to situation Psychiatric exam: PRESENT: appropriate affect Results Laboratory Results: 06/03/18 16:03 06/06/18 05:33 06/10/18 06:58 Uric Acid 3.3 L 06/04/18 05:19 Creatine Kinase 327 H Impressions: Chest X-Ray 06/03/18 15:48 IMPRESSION: Negative chest allowing for low lung volumes. Wrist X-Ray 06/10/18 00:00 IMPRESSION: No acute fracture or malalignment. Assessment & Plan - Diagnosis (1) Acute infective cystitis Is this a current diagnosis for this admission?: Yes Plan: d5 amp. [id number] with Kpad and hot room sweating. Lower with adjustments. Consi marianne discharge or transfer tomorrow. (2) Primary osteoarthritis of both knees Is this a current diagnosis for this admission?: Yes Plan: uric acid ok. Check sed ra jazmyne. (3) Syncope and collapse Is this a current diagnosis for this admission?: Yes (4) Fever Qualifiers: Fever type: unspecified Qualified Code(s): R50.9 - Fever, unspecified Is this a current diagnosis for this admission?: Yes (5) Polycystic kidney, adult type Is this a current diagnosis for this admission?: Yes (6) Coalworker's pneumoconiosis Is this a current diagnosis for this admission?: Yes (7) Obstructive sleep apnea Is this a current diagnosis for this admission?: Yes (8) Essential (primary) hypertension Is this a current diagnosis for this admission?: Yes (9) IHSS (idiopathic hypertrophic subaortic stenosis) Is this a current diagnosis for this admission?: Yes (10) Angina of effort Is this a current diagnosis for this admission?: Yes (11) Gastro-esophageal reflux disease without esophagitis Is this a current diagnosis for this admission?: Yes (12) Slow transit constipation Is this a current diagnosis for this admission?: Yes (13) Spinal stenosis of cervical region Is this a current diagnosis for this admission?: Yes (14) Idiopathic chronic gout of multiple sites without tophus Is this a current diagnosis for this admission?: Yes (15) Sciatica, right side Is this a current diagnosis for this admission?: Yes (16) Hyperlipemia Qualifiers: Hyperlipidemia type: mixed hyperlipidemia Qualified Code(s): E78.2 - Mixed hyperlipidemia Is this a current diagnosis for this admission?: Yes (17) Acute kidney injury Is this a current diagnosis for this admission?: Yes - Inpatient Certification Medical Necessity: Failure to Improve With Outpatient Therapy, Need Close Monitoring Due to Risk of Patient Decompensation, Need for IV Antibiotics, Risk of Complication if Not Cared For in Hospital, Risk of Diagnosis Which Will Require Inpatient Eval/Care/Monitoring
[2018-06-11] MEDS: METOPROLOL SUCCINATE 25 MG TAB.SR.24H PO SCH (09:38)
[2018-06-11] MEDS: CLOPIDOGREL BISULFATE 75 MG TABLET PO SCH (09:38)
[2018-06-11] MEDS: LUBIPROSTONE 24 MCG CAPSULE PO SCH (09:38)
[2018-06-11] MEDS: ENOXAPARIN SODIUM INJ 30 MG/0.3 ML DISP.SYRIN SUBCUT SCH ×2 (09:38→09:48)
[2018-06-11] MEDS: HYDRALAZINE HCL 50 MG TABLET PO SCH ×2 (09:38→21:47)
[2018-06-11] MEDS: POLYVINYL ALCOHOL 1.4% OPH SOLN 15 ML OU SCH ×3 (09:38→18:26)
[2018-06-11] MEDS: AMLODIPINE BESYLATE 10 MG TABLET PO SCH (09:38)
[2018-06-11] MEDS: ALLOPURINOL 300 MG TABLET PO SCH (09:39)
[2018-06-11] MEDS: LIDOCAINE 5% (700 MG) TRANSDERMAL ADH..PATCH TOP SCH ×2 (09:39→09:47)
[2018-06-11] MEDS: PHARMACY COMMUNICATION ORDER MC SCH (22:43)
[2018-06-11] MEDS: LATANOPROST 0.005% OPH SOLN 2.5 ML OU SCH (22:44)
[2018-06-12] MEDS: AMPICILLIN SODIUM 1 GM in NORMAL SALINE 50 ML IV SCH ×2 (00:34→05:39)
[2018-06-12] MEDS: ACETAMINOPHEN 325 MG TABLET PO PRN (03:44)
[2018-06-12] MEDS: LANSOPRAZOLE 30 MG TAB.RAP.DR PO SCH (05:39)
--- NOTE | 2018-06-12 07:53 | PDOC DISCHARGE SUMMARY ---
General - Admit/Disc Date/PCP Admission Date/Primary Care Provider: 06/03/18 19:30 LORENZO KHAN MD Discharge Date: 06/12/18 - Discharge Diagnosis (1) Acute infective cystitis Is this a current diagnosis for this admission?: Yes (2) Primary osteoarthritis of both knees Is this a current diagnosis for this admission?: Yes (3) Syncope and collapse Is this a current diagnosis for this admission?: Yes (4) Fever Is this a current diagnosis for this admission?: Yes (5) Polycystic kidney, adult type Is this a current diagnosis for this admission?: Yes (6) Coalworker's pneumoconiosis Is this a current diagnosis for this admission?: Yes (7) Obstructive sleep apnea Is this a current diagnosis for this admission?: Yes (8) Essential (primary) hypertension Is this a current diagnosis for this admission?: Yes (9) IHSS (idiopathic hypertrophic subaortic stenosis) Is this a current diagnosis for this admission?: Yes (10) Angina of effort Is this a current diagnosis for this admission?: Yes (11) Gastro-esophageal reflux disease without esophagitis Is this a current diagnosis for this admission?: Yes (12) Slow transit constipation Is this a current diagnosis for this admission?: Yes (13) Spinal stenosis of cervical region Is this a current diagnosis for this admission?: Yes (14) Idiopathic chronic gout of multiple sites without tophus Is this a current diagnosis for this admission?: Yes (15) Sciatica, right side Is this a current diagnosis for this admission?: Yes (16) Hyperlipemia Is this a current diagnosis for this admission?: Yes (17) Acute kidney injury Is this a current diagnosis for this admission?: Yes - Additional Information Resuscitation Status: Full Code Discharge Diet: Cardiac Discharge Activity: Supervised Activity Prescriptions: Amlodipine Besylate [Norvasc 10 mg Tablet] 10 mg PO DAILY #90 tablet Amoxicillin 1 tab PO TID #30 tab Home Medications: Allopurinol [Zyloprim 300 mg Tablet] 300 mg PO DAILY 06/03/18 Aspirin [Ecotrin 81 mg EC Tablet] 81 mg PO DAILY 06/03/18 Atorvastatin Calcium [Lipitor 40 mg Tablet] 40 mg PO QHS 06/03/18 Clopidogrel Bisulfate [Plavix 75 mg Tablet] 75 mg PO DAILY 06/03/18 Hydralazine HCl [Apresoline 50 mg Tablet] 50 mg PO Q12 06/03/18 Hydrochlorothiazide [Hydrodiuril 25 mg Tablet] 25 mg PO DAILY 06/03/18 Lidocaine [Lidoderm 5% (700 mg) Transdermal Patch] 2 patch TOP DAILY 06/03/18 Lubiprostone [Amitiza 24 Mcg Capsule] 24 mcg PO BID 06/03/18 Metoprolol Succinate [Toprol Xl 25 mg Tab.sr] 25 mg PO DAILY 06/03/18 Pantoprazole Sodium [Protonix] 20 mg PO DAILY 06/03/18 Amlodipine Besylate [Norvasc 10 mg Tablet] 10 mg PO DAILY #90 tablet 06/12/18 Amoxicillin 1 tab PO TID #30 tab 06/12/18 Latanoprost [Xalatan 0.005% Oph Soln 2.5 ml] 1 drop OU QHS bottle 06/12/18 Polyvinyl Alcohol [Liquitears 1.4% Ophth Soln 15 ml] 1 drop OU TID bottle 06/12/18 History of Present Illness Patient complains of: fever and weakness History of Present Illness: ZAIRA GOOD is a 78 year old male with chronic malaise and polycystic kidneys. 10d ago he presented with nausea dizziness foul urine low back pain. Urine had 1+ leukocytes and grew pansensitive 100k E coli. He took 3 days of bactrim that helped. Now he has had 1w fever chills myalgia. Today he was too weak and light headed to get out of bed. EMS reported fever. JPM had scheduled cervical epidural steroid but postponed to 8feb because of recent antibiotic. Hospital Course Hospital Course: urine grew 30k enterococcus fecalis sensitive to amp. Ceftriaxone was switched after 2d to amp 1giv q6h. This is d6. Temp got up to 100.5 2 nights ago with hot room and Kpad for R wrist but was under 100 last night. He walked in [facility] PT and walker until wrist limited him. Tenderness was general 1st day then localized to 1cmc which was narrow on xray. Uric was 3.5. Sed rate 102. RA negative. JOSE ANTONIO is pending. Preschool Teacher'S Assistant was 5of5 when not limited by pain. Family prefers home health rather than rehab unless [facility] is not. Dr Cooley is waiting on cardiac clearance and [facility] approval for L hip arthroplasty. Amlodipine was added. Physical Exam Vital Signs: Temp Pulse Resp BP Pulse Ox 99.5 F 60 19 129/53 H 94 06/12/18 03:33 06/12/18 03:33 06/12/18 03:33 06/12/18 03:33 06/12/18 03:33 Intake & Output 06/10/18 06/11/18 06/12/18 07:59 07:59 07:59 Intake Total 1025 318 637 Output Total 1035 435 Balance -10 318 202 Weight 258 lb 6.108 oz 252 lb 3.341 oz 254 lb 6.615 oz General appearance: PRESENT: no acute distress Respiratory exam: PRESENT: clear to auscultation [place] Cardiovascular exam: ABSENT: diastolic murmur, irregular rhythm, systolic murmur GI/Abdominal exam: ABSENT: mass, organolmegaly, tenderness Extremities exam: PRESENT: pedal edema - trace Neurological exam: PRESENT: oriented to situation Psychiatric exam: PRESENT: appropriate affect Results Laboratory Results: 06/03/18 16:03 06/06/18 05:33 Labs- Last Values WBC 10.0 10^3/uL (4.0-10.5) 06/03/18 16:03 RBC 3.75 10^6/uL (4.35-5.55) L 06/03/18 16:03 Hgb 11.5 g/dL (13.5-17.0) L 06/03/18 16:03 Hct 35.1 % (37.9-51.0) L 06/03/18 16:03 MCV 94 fl (80-97) 06/03/18 16:03 MCH 30.7 pg (27.0-33.4) 06/03/18 16:03 MCHC 32.8 g/dL (32.0-36.0) 06/03/18 16:03 RDW 17.2 % (11.5-14.0) H 06/03/18 16:03 Plt Count 224 10^3/uL (150-450) 06/03/18 16:03 Seg Neutrophils % 81.3 % (42-78) H 06/03/18 16:03 Lymphocytes % 9.4 % (13-45) L 06/03/18 16:03 Monocytes % 8.9 % (3-13) 06/03/18 16:03 Eosinophils % 0.0 % (0-6) 06/03/18 16:03 Basophils % 0.4 % (0-2) 06/03/18 16:03 Absolute Neutrophils 8.1 10^3/uL (1.7-8.2) 06/03/18 16:03 Absolute Lymphocytes 0.9 10^3/uL (0.5-4.7) 06/03/18 16:03 Absolute Monocytes 0.9 10^3/uL (0.1-1.4) 06/03/18 16:03 Absolute Eosinophils 0.0 10^3/uL (0.0-0.6) 06/03/18 16:03 Absolute Basophils 0.0 10^3/uL (0.0-0.2) 06/03/18 16:03 ESR 112 mm/hr (0-20) H 06/11/18 07:30 PT 15.0 SEC (11.4-15.4) 06/03/18 16:03 INR 1.12 06/03/18 16:03 VBG pH 7.40 (7.30-7.42) 06/03/18 16:03 VBG pCO2 38.5 mmHg (35-63) 06/03/18 16:03 VBG HCO3 23.3 mmol/L (20-32) 06/03/18 16:03 VBG Base Excess -1.2 mmol/L 06/03/18 16:03 Sodium 139.2 mmol/L (137-145) 06/06/18 05:33 Potassium 4.1 mmol/L (3.6-5.0) 06/06/18 05:33 Chloride 107 mmol/L (98-107) 06/06/18 05:33 Carbon Dioxide 22 mmol/L (22-30) 06/06/18 05:33 Anion Gap 10 (5-19) 06/06/18 05:33 BUN 19 mg/dL (7-20) 06/06/18 05:33 Creatinine 0.97 mg/dL (0.52-1.25) 06/06/18 05:33 Est GFR ( Amer) > 60 (>60) 06/06/18 05:33 Est GFR (Non-Af Amer) > 60 (>60) 06/06/18 05:33 Glucose 102 mg/dL (75-110) 06/06/18 05:33 POC Glucose 135 mg/dL (70-110) H 06/03/18 16:15 Lactic Acid 2.0 mmol/L (0.7-2.1) 06/03/18 16:03 Uric Acid 3.3 mg/dL (3.5-8.5) L 06/10/18 06:58 Calcium 8.6 mg/dL (8.4-10.2) 06/06/18 05:33 Total Bilirubin 0.9 mg/dL (0.2-1.3) 06/03/18 16:03 Direct Bilirubin 0.4 mg/dL (0.0-0.4) 06/03/18 16:03 Neonat Total Bilirubin Not Reportable 06/03/18 16:03 Neonat Direct Bilirubin Not Reportable 06/03/18 16:03 Neonat Indirect Bili Not Reportable 06/03/18 16:03 AST 38 U/L (17-59) 06/03/18 16:03 ALT 34 U/L (21-72) 06/03/18 16:03 Alkaline Phosphatase 156 U/L (38-126) H 06/03/18 16:03 Creatine Kinase 327 U/L (55-170) H 06/04/18 05:19 Total Protein 7.9 g/dL (6.3-8.2) 06/03/18 16:03 Albumin 4.4 g/dL (3.5-5.0) 06/03/18 16:03 Urine Color YELLOW 06/03/18 18:55 Urine Appearance CLOUDY 06/03/18 18:55 Urine pH 5.0 (5.0-9.0) 06/03/18 18:55 Ur Specific [place] 1.015 06/03/18 18:55 Urine Protein 30 mg/dL (NEGATIVE) H 06/03/18 18:55 Urine Glucose (UA) NEGATIVE mg/dL (NEGATIVE) 06/03/18 18:55 Urine Ketones NEGATIVE mg/dL (NEGATIVE) 06/03/18 18:55 Urine Blood NEGATIVE (NEGATIVE) 06/03/18 18:55 Urine Nitrite NEGATIVE (NEGATIVE) 06/03/18 18:55 Urine Bilirubin NEGATIVE (NEGATIVE) 06/03/18 18:55 Urine Urobilinogen 2.0 mg/dL (<2.0) H 06/03/18 18:55 Ur Leukocyte Esterase NEGATIVE (NEGATIVE) 06/03/18 18:55 Urine WBC (Auto) 3 /HPF 06/03/18 18:55 Urine RBC (Auto) 0 /HPF 06/03/18 18:55 U Hyaline Cast (Auto) 5 /LPF 06/03/18 18:55 Squamous Epi Cells Auto <1 /HPF 06/03/18 18:55 Urine Mucus (Auto) RARE /LPF 06/03/18 18:55 Urine Ascorbic Acid 40 (NEGATIVE) H 06/03/18 18:55 Rheumatoid Factor NEGATIVE (NEGATIVE) 06/11/18 07:30 Influenza A (Rapid) NEGATIVE (NEGATIVE) 06/03/18 17:00 Influenza B (Rapid) NEGATIVE (NEGATIVE) 06/03/18 17:00 Impressions: Chest X-Ray 06/03/18 15:48 IMPRESSION: Negative chest allowing for low lung volumes. Wrist X-Ray 06/10/18 00:00 IMPRESSION: No acute fracture or malalignment. Qualifiers - * PATIENT BEING DISCHARGED WITH ANY OF THE FOLLOWING DIAGNOSIS: No Plan Discharge Plan: 1w ov. Home health
[2018-06-12] MEDS: AMLODIPINE BESYLATE 10 MG TABLET PO SCH (10:49)
[2018-06-12] MEDS: LUBIPROSTONE 24 MCG CAPSULE PO SCH (10:50)
[2018-06-12] MEDS: ALLOPURINOL 300 MG TABLET PO SCH (10:50)
[2018-06-12] MEDS: POLYVINYL ALCOHOL 1.4% OPH SOLN 15 ML OU SCH (10:50)
[2018-06-12] MEDS: HYDRALAZINE HCL 50 MG TABLET PO SCH (10:50)
[2018-06-12] MEDS: METOPROLOL SUCCINATE 25 MG TAB.SR.24H PO SCH (10:50)
[2018-06-12] MEDS: LIDOCAINE 5% (700 MG) TRANSDERMAL ADH..PATCH TOP SCH (10:51)
[2018-06-12] MEDS: ENOXAPARIN SODIUM INJ 30 MG/0.3 ML DISP.SYRIN SUBCUT SCH (10:51)
[2018-06-12] MEDS: CLOPIDOGREL BISULFATE 75 MG TABLET PO SCH (10:51)
[2018-06-12 11:03] VITALS: BP 150/72
[2018-06-12 12:44] LABS: ANTINUCLEAR ANTIBODIES Negative (Negative)
== END 2018-06-12 12:30 | disposition home health service (06) | DRG 690 ==
LOC: ER 15:45 → EH 19:30 → 4S 21:39
PROVIDERS: ADMIT Family Medicine; ATTEND Family Medicine
DX: N30.00 Acute cystitis without hematuria (principal); Q61.3 Polycystic kidney, unspecified; N17.9 Acute kidney failure, unspecified; I42.1 Obstructive hypertrophic cardiomyopathy; M48.02 Spinal stenosis, cervical region; D64.9 Anemia, unspecified; M17.0 Bilateral primary osteoarthritis of knee; I12.9 Hypertensive chronic kidney disease with stage 1 through stage 4 chronic kidney disease, or unspecified chronic kidney disease; N18.9 Chronic kidney disease, unspecified; G47.30 Sleep apnea, unspecified; I25.118 Atherosclerotic heart disease of native coronary artery with other forms of angina pectoris; J60 Coalworker's pneumoconiosis; K21.9 Gastro-esophageal reflux disease without esophagitis; K44.9 Diaphragmatic hernia without obstruction or gangrene; R20.2 Paresthesia of skin; R19.7 Diarrhea, unspecified; E66.9 Obesity, unspecified; R55 Syncope and collapse; K59.01 Slow transit constipation; M1A.09X0 Idiopathic chronic gout, multiple sites, without tophus (tophi); M54.31 Sciatica, right side; E78.2 Mixed hyperlipidemia; B95.2 Enterococcus as the cause of diseases classified elsewhere; M25.531 Pain in right wrist; Z95.5 Presence of coronary angioplasty implant and graft; Z87.891 Personal history of nicotine dependence; Z82.49 Family history of ischemic heart disease and other diseases of the circulatory system; Z79.02 Long term (current) use of antithrombotics/antiplatelets; Z79.82 Long term (current) use of aspirin; Z87.440 Personal history of urinary (tract) infections; Z68.35 Body mass index [BMI] 35.0-35.9, adult
CPT/HCPCS: 36415; 51701; 71045; 80048; 80053; 81001; 82550; 82803; 82962; 83605; 84550; 85025; 85610; 85652; 86038; 86430; 87040; 87086; 87088; 87186; 87804; 93005; 93010; 96361; 96365; 99285; J0290; J0696; J1650; J3490; J7030

== ENCOUNTER → 2019-04-30 | Outpatient (CLI) | payer OTHER, MEDICARE ==
[2019-04-30 12:49] LABS: ABSOLUTE BASOPHILS # (AUTO) 0.1 10^3/uL (0.0-0.2); ABSOLUTE EOSINOPHILS # (AUTO) 0.1 10^3/uL (0.0-0.6); ABSOLUTE MONOCYTES (AUTO) 0.5 10^3/uL (0.1-1.4); ABSOLUTE NEUT (AUTO) 2.8 10^3/uL (1.7-8.2); EOSINOPHILS % (AUTO) 2.2 % (0-6); HEMATOCRIT 33.4 % (37.9-51.0); HEMOGLOBIN 11.1 g/dL (13.5-17.0); LYMPHOCYTES % (AUTO) 36.5 % (13-45); MEAN CORPUSCULAR HEMOGLOBIN 30.9 pg (27.0-33.4); MEAN CORPUSCULAR HGB CONC 33.1 g/dL (32.0-36.0); MEAN CORPUSCULAR VOLUME 93 fl (80-97); MONOCYTES % (AUTO) 8.9 % (3-13); PLATELET COUNT 200 10^3/uL (150-450); RED BLOOD COUNT 3.59 10^6/uL (4.35-5.55); RED CELL DISTRIBUTION WIDTH 17.5 % (11.5-14.0); SEGMENTED NEUTROPHILS % (AUTO) 51.4 % (42-78); TOTAL CELLS COUNTED % (AUTO) 100 %; WHITE BLOOD COUNT 5.5 10^3/uL (4.0-10.5)
[2019-04-30 12:54] LABS: INTERNATIONAL RATION (INR) 1.01; PROTHROMBIN TIME 13.3 SEC (11.4-15.4)
[2019-04-30 12:55] LABS: PARTIAL THROMBOPLASTIN TIME 40.7 SEC (23.5-35.8)
[2019-04-30 13:09] LABS: POTASSIUM 4.2 mmol/L (3.6-5.0)
== END ==
LOC: OD 12:03
PROVIDERS: ATTEND Specialist
DX: I25.118 Atherosclerotic heart disease of native coronary artery with other forms of angina pectoris (principal); R07.9 Chest pain, unspecified; R06.00 Dyspnea, unspecified; R06.02 Shortness of breath; I10 Essential (primary) hypertension
CPT/HCPCS: 36415; 80051; 82947; 83735; 84520; 85025; 85610; 85730

== ENCOUNTER → 2019-05-13 | Outpatient (CLI) | payer MEDICARE, OTHER | LOC: OD 08:59 | PROVIDERS: ATTEND Specialist | DX: I25.118 Atherosclerotic heart disease of native coronary artery with other forms of angina pectoris (principal); R07.9 Chest pain, unspecified; R06.02 Shortness of breath; E78.5 Hyperlipidemia, unspecified; E66.8 Other obesity; I10 Essential (primary) hypertension; G45.9 Transient cerebral ischemic attack, unspecified; R55 Syncope and collapse; G47.30 Sleep apnea, unspecified; R01.1 Cardiac murmur, unspecified; R09.89 Other specified symptoms and signs involving the circulatory and respiratory systems; Z98.61 Coronary angioplasty status; K21.9 Gastro-esophageal reflux disease without esophagitis; R07.89 Other chest pain; R06.09 Other forms of dyspnea; R94.30 Abnormal result of cardiovascular function study, unspecified; Z79.899 Other long term (current) drug therapy | CPT/HCPCS: 36415; 82565 ==